=== PATIENT | male | born 1955 | race Hispanic/Latino ===

== ENCOUNTER 2016-08-12 20:29 | Inpatient (IN) | payer OTHER ==
--- NOTE | 2016-08-12 21:19 | C.PDOC ---
History Of Present Illness Patient is a 60 year old male who was brought into the ER by EMS for public intoxication. Patient was brought in restraints due to aggressive behavior and assaulting police and EMS. Patient has a stitching on the mid upper lip that was done 2 days ago at [facility] and ETOH on breath. There are no other signs of trauma or injury. Time Seen by Provider: 08/12/16 20:39 Chief Complaint (Nursing): Substance Abuse History Per: EMS History/Exam Limitations: intoxication Onset/Duration Of Symptoms: Hrs Current Symptoms Are (Timing): Still Present Past Medical History Reviewed: Historical Data, Nursing Documentation, Vital Signs Vital Signs: Last Vital Signs Temp 98.1 F 08/12/16 20:41 Pulse 94 H 08/13/16 00:26 Resp 14 08/13/16 00:26 BP 152/77 H 08/13/16 00:26 Pulse Ox 91 L 08/13/16 00:26 - Medical History PMH: HTN Family History: States: Unknown Family Hx - Social History Hx Alcohol Use: Yes Hx Substance Use: No Review Of Systems Review Of Systems: ROS cannot be obtained secondary to pt's inabilty to answer questions. (Intoxication) ENT: Positive for: Other (Stitching on mid upper lip.) Physical Exam - Physical Exam Appears: Non-toxic, Other (ETOH on breath.) Skin: Normal Color, Warm, Dry Head: Atraumatic, Normacephalic Oral Mucosa: Moist Lips: Other (Stitching on mid upper lip) Neck: Supple Cardiovascular: Rhythm Regular Respiratory: Normal Breath Sounds, No Rales, No Rhonchi, No Wheezing Gastrointestinal/Abdominal: Soft, No Tenderness, No Distention, No Guarding, No Rebound ED Course And Treatment O2 Sat by Pulse Oximetry: 100 (Room air) Pulse Ox Interpretation: Normal Progress Note: Atican IM and Geodon Inj were administered. restraints removed. impressive sleep apnea. OP bite block inserted by this MD to maintain proper OP airway: good O2 Sats Medical Decision Making Medical Decision Making: alcohol abuse Sleep apnea upper lip lac from 2 days ago- sutured @ [facility] ED OBSERVATION Date of observation admission: 08/12/16 Time of observation admission: 21:18 - Observation admission statement Patient is being placed in observation because:: Acute alcohol intoxication - Goals of Observation Goals of observation are:: Sobriety Disposition Doctor Will See Patient In The: Office Counseled Patient/Family Regarding: Studies Performed, Diagnosis - Disposition Disposition: HOME/ ROUTINE Disposition Time: 00:37 Condition: GOOD - Clinical Impression Clinical Impression: Alcohol abuse - Scribe Statement The provider has reviewed the documentation as recorded by the Scribsuzette Corbin All medical record entries made by the Mirzaibe were at my direction and personally dictated by me. I have reviewed the chart and agree that the record accurately reflects my personal performance of the history, physical exam, medical decision making, and the department course for this patient. I have also personally directed, reviewed, and agree with the discharge instructions and disposition. Physician Patient Turnover Patient Signed Over To: Solomon Kumar Handoff Comments: dispo in AM when sober
[2016-08-13 01:51] LABS: URINE BILIRUBIN NEGATIVE (NEGATIVE); URINE BLOOD 1+ (NEGATIVE); URINE COLOR Colorless (YELLOW); URINE GLUCOSE (UA) NORMAL (Normal); URINE KETONE NEGATIVE (NEGATIVE); URINE LEUKOCYTE ESTERASE NEG Leu/uL (Negative); URINE PROTEIN NEGATIVE (NEGATIVE); URINE UROBILINOGEN NORMAL mg/dL (0.2-1.0)
[2016-08-13 01:57] LABS: BASO # 0.1 K/uL (0.0-0.2); BASO % 0.5 % (0.0-2.0); EOS # 0.1 K/uL (0.0-0.7); EOS % 0.5 % (0.0-4.0); HEMATOCRIT 39.7 % (35.0-51.0); LYMPH # 3.9 K/uL (1.0-4.3); MEAN CELL VOLUME 95.1 fL (80.0-94.0); MEAN CORPUSCULAR HEMOGLOBIN 31.2 pg (27.0-31.0); MEAN CORPUSCULAR HGB CONC 32.8 g/dL (33.0-37.0); MEAN PLATELET VOLUME 8.1 fL (7.2-11.7); MONO # 0.7 K/uL (0.0-0.8); MONO % 4.5 % (0.0-10.0); RED CELL DISTRIBUTION WIDTH 13.2 % (11.5-14.5); WHITE BLOOD COUNT 15.4 K/uL (4.8-10.8)
[2016-08-13 02:09] LABS: CHLORIDE 103 mmol/L (98-107)
[2016-08-13 02:10] LABS: POTASSIUM 3.9 mmol/L (3.6-5.2); SODIUM 145 mmol/L (132-148)
[2016-08-13 02:12] LABS: AST/SGOT 33 U/L (17-59); BILIRUBIN,TOTAL 0.2 mg/dL (0.2-1.3); CARBON DIOXIDE 26 mmol/L (22-30); GFR AFRICAN-AMERICAN > 60
[2016-08-13 02:13] LABS: ALB/GLOB RATIO 1.1 (1.0-2.1); ALCOHOL SERUM 235 mg/dl (0-10); ALKALINE PHOSPHATASE 56 U/L (38-126); ALT/SGPT 35 U/L (21-72); BLOOD UREA NITROGEN 9 mg/dL (9-20); GLUCOSE,RANDOM 289 mg/dL (75-110); TOTAL PROTEIN 7.7 g/dL (6.3-8.3)
[2016-08-13] MEDS ORDERED: Naloxone 0.4 mg/ml Inj (Adult) ONE ×2 (05:11→05:21)
[2016-08-13] MEDS ORDERED: Sodium Chloride 0.9% 1,000 ML IV ONE (05:31)
[2016-08-13] MEDS ORDERED: Naloxone 0.4 mg/ml Inj (Adult) IVP ONE ×2 (05:32)
[2016-08-13] MEDS ORDERED: Sodium Chloride 0.9% 1,000 ML ONE (06:14)
[2016-08-13] MEDS ORDERED: Albuterol-Ipratrop 3 mg / 0.5 (3 ml) UD INH STA (06:41)
[2016-08-13] MEDS ORDERED: Albuterol-Ipratrop 3 mg / 0.5 (3 ml) UD ONE (06:42)
[2016-08-13 06:54] LABS: ABG ALLEN TEST POS; ARTERIAL BLOOD HGB O2 SAT 96.6 % (95.0-98.0); CARBOXYHEMOGLOBIN 1.6 % (0.5-1.5); DRAW SITE RB; HHB 0.6 % (0.0-5.0); METHEMOGLOBIN 1.2 % (0.0-3.0)
--- NOTE | 2016-08-13 07:47 | CT ---
PROCEDURE: CT HEAD WITHOUT CONTRAST. HISTORY: unresponsiveness COMPARISON: None available. TECHNIQUE: Axial computed tomography images were obtained through the head/brain without intravenous contrast. Radiation dose: Total exam DLP = 1996.86 mGy-cm. FINDINGS: HEMORRHAGE: No intracranial hemorrhage. BRAIN: No mass effect or edema. No atrophy or chronic microvascular ischemic changes. VENTRICLES: Unremarkable. No hydrocephalus. CALVARIUM: Unremarkable. PARANASAL SINUSES: Chronic left maxillary sinusitis. MASTOID AIR CELLS: Unremarkable as visualized. No inflammatory changes. OTHER FINDINGS: None. IMPRESSION: No intracranial mass, hemorrhage or evidence of acute infarct. Chronic left maxillary sinusitis.
[2016-08-13 08:16] LABS: CHLORIDE 100 mmol/L (98-107); SODIUM 147 mmol/L (132-148)
[2016-08-13 08:17] LABS: POTASSIUM 4.1 mmol/L (3.6-5.2)
[2016-08-13 08:18] LABS: GFR AFRICAN-AMERICAN > 60
[2016-08-13 08:19] LABS: ALB/GLOB RATIO 1.2 (1.0-2.1); ALKALINE PHOSPHATASE 64 U/L (38-126); ALT/SGPT 27 U/L (21-72); AST/SGOT 40 U/L (17-59); BILIRUBIN,TOTAL 0.2 mg/dL (0.2-1.3); BLOOD UREA NITROGEN 12 mg/dL (9-20); CALCIUM 8.3 mg/dl (8.6-10.4); CARBON DIOXIDE 26 mmol/L (22-30); GLUCOSE,RANDOM 72 mg/dL (75-110)
[2016-08-13 09:31] LABS: INR 1.1
[2016-08-13] MEDS ORDERED: MethylPREDNISolone 40 mg Vial IVP STA (09:32)
[2016-08-13] MEDS ORDERED: DiphenhydrAMINE 50 mg/ml Inj IVP STA (09:32)
[2016-08-13] MEDS ORDERED: Thiamine 100 mg/ml Inj IV STA (09:36)
[2016-08-13] MEDS ORDERED: Piperacillin/Tazobact 3.375 gm 100 ML IVPB ONE (09:37)
[2016-08-13] MEDS ORDERED: Dextrose 5%/0.9% NS 1,000 ML IV ONE (09:38)
[2016-08-13] MEDS: Piperacill/Tazo 3.375gm in Dex 50 ML IVPB SCH ×3 (09:39→21:23)
[2016-08-13] MEDS ORDERED: Thiamine 100 mg/ml Inj ONE (10:01)
[2016-08-13] MEDS: Dextrose 5%/0.9% NS 1,000 ML IV SCH ×3 (10:06→22:16)
[2016-08-13] MEDS ORDERED: DiphenhydrAMINE 50 mg/ml Inj ONE (10:15)
[2016-08-13] MEDS ORDERED: MethylPREDNISolone 40 mg Vial ONE (10:16)
--- NOTE | 2016-08-13 11:01 | RAD ---
PROCEDURE: CHEST RADIOGRAPH, 1 VIEW HISTORY: hypoxemia, alc. intoxication COMPARISON: None available. FINDINGS: LUNGS: Mild bibasilar atelectasis and or infiltrates. PLEURA: No pneumothorax or pleural fluid seen. CARDIOVASCULAR: Heart size is upper limits of normal/ borderline enlarged. OSSEOUS STRUCTURES: Mild multilevel degenerative spondylosis of the thoracic spine. VISUALIZED UPPER ABDOMEN: Normal. OTHER FINDINGS: None. IMPRESSION: Mild bibasilar atelectasis and or infiltrates.
[2016-08-13] MEDS ORDERED: Ibuprofen IV 400 MG in Dextrose 5% In Water 100 ML IVPB ONE (11:25)
--- NOTE | 2016-08-13 12:59 | CT ---
PROCEDURE: CT Chest with contrast (Pulmonary Angiogram) HISTORY: possible PE COMPARISON: None available. TECHNIQUE: Axial computed tomography images were obtained of the chest in the pulmonary arterial phase of enhancement. Coronal and sagittal reformatted images were created and reviewed. Intravenous contrast dose: 100 cubic centimeters Visipaque 320 Radiation dose: Total exam DLP = 574.86 MGy-cm. FINDINGS: PULMONARY ARTERIES: Unremarkable. No pulmonary embolism. AORTA: No acute findings. No thoracic aortic aneurysm. LUNGS: Consolidation right and left lower lobes. PLEURAL SPACES: No effusion or pneuomothorax. HEART: Unremarkable. No cardiomegaly. No significant pericardial effusion. LYMPH NODES: No lymphadenopathy. BONES, CHEST WALL: Unremarkable. No fracture or destructive lesion OTHER FINDINGS: Unremarkable. IMPRESSION: Significant consolidation right and left lower lobe consistent with airspace disease and likely representing pneumonia. No evidence of pulmonary embolism.
[2016-08-13 13:52] LABS: VENOUS BLOOD GAS BASE EXCESS -0.7 mmol/L (0.0-2.0); VENOUS BLOOD GAS PCO2 40 mmHg (40-60); VENOUS BLOOD PH 7.39 (7.32-7.43)
[2016-08-13] MEDS ORDERED: Multivitamin (MVI) 10 ML, Thiamine 100 MG, Folic Acid 1 MG in Sodium Chloride 0.9% 1,00... IV ONE (14:09)
[2016-08-13] MEDS: Albuterol-Ipratrop 3 mg / 0.5 (3 ml) UD INH SCH ×2 (16:00→20:03)
--- NOTE | 2016-08-13 16:15 | CP.PCM.CON ---
History of Present Illness - History of Present Illness History of Present Illness: Chief complaint: Altered mental status History present illness: 60-year-old male brought in by the ambulance last night, at the time patient was found to be severely alcoholic, and drowsiness, secondary to possibly alcoholic intoxication. Patient was observed in the emergency room, but over the course of last night and this morning patient become more somnolent. Initially patient was agitated, given Ativan as well as Geodon, but this morning patient become more lethargic. Patient also having respiratory distress. And he was given BiPAP and ICU evaluation was called. 10 am examined by me at the time , at the time patient was severely hypoxic and BiPAP with 100% FiO2. Patient is responding to deep stimuli. But responding to simple questions at the time. Labored breathing was noted in spite of the BiPAP. Past medical history: Alcoholism. Further information is not available Allergy: Unknown Personal history, suspected alcoholism, but further history not available, he also claims that he smokes Personal history and family history not available much Review of system: Patient is calm at this time, but the drowsy, on BiPAP and labored breathing noted. On examination: Vital signs reviewed Hypoxia noted, patient is on FiO2 of 100%. Chest bilateral diffuse rhonchi and wheezing noted regular heart sound nontender abdomen Chest x-ray showing evidence of basilar atelectasis But ABG reveals hypoxia. In opinion patient has a severe gradient, will get a CT scan of the chest Patient underwent a CAT scan of the chest with contrast showing evidence of possible lower lobe bilateral pneumonia Labs reviewed Elevated LEVEL noted Assessment and recommendation: 60-year-old male now admitted with alcoholism, and also severe bilateral community-acquired pneumonia. Aspiration pneumonia cannot be ruled out. Given the alcoholism patient is at high risk Streptococcus pneumonia. We'll start the patient on vancomycin and Zosyn. High FiO2. Overall prognosis is guarded and will follow the patient. Past Patient History - Infectious Disease Hx of Infectious Diseases: None - Past Social History Smoking Status: Never Smoked - CARDIAC Hx Hypertension: Yes - PULMONARY Hx Tuberculosis: No - NEUROLOGICAL Hx Seizures: No - HEMATOLOGICAL/ONCOLOGICAL Hx Human Immunodeficiency Virus (HIV): No - GENITOURINARY/GYNECOLOGICAL Hx Sexually Transmitted Disorders: No - PSYCHIATRIC Hx Substance Use: No - SURGICAL HISTORY Hx Surgeries: No - ANESTHESIA Hx Anesthesia: No Meds Allergies/Adverse Reactions: Allergies Allergy/AdvReac Type Severity Reaction Status Date / Time No Known Allergies Allergy Verified 08/12/16 20:37 - Medications Medications: Current Medications Albuterol/Ipratropium (Duoneb 3 Mg/0.5 Mg (3 Ml) Ud) 3 ml INH RQ6 [facility] Last Admin: 08/13/16 16:00 Dose: 3 ml Piperacillin Sod/Tazobactam Sod (Zosyn 3.375 Gm Iv Premix) 50 mls @ 100 mls/hr IVPB Q6H [facility] Last Admin: 08/13/16 09:39 Dose: 100 mls/hr Dextrose/Sodium Chloride (Dextrose 5%/0.9% Ns 1000 Ml) 1,000 mls @ 150 mls/hr IV .Q6H40M [facility] Last Admin: 08/13/16 10:06 Dose: 150 mls/hr Multivitamins/Vitamin C 10 ml/Thiamine HCl 100 mg/ Folic Acid 1 mg/ Sodium Chloride 1,011.2 mls @ 150 mls/hr IV .Q6H45M ONE Stop: 08/13/16 20:53 Vancomycin HCl 1,000 mg/ (Sodium Chloride) 250 mls @ 166.6 mls/hr IVPB Q12H [facility] Last Admin: 08/13/16 14:38 Dose: 166.6 mls/hr Pantoprazole Sodium (Protonix Inj) 40 mg IVP DAILY [facility] Results - Vital Signs Recent Vital Signs: Last Vital Signs Temp 100.5 F H 08/13/16 13:49 Pulse 87 08/13/16 14:32 Resp 16 08/13/16 14:32 BP 105/68 08/13/16 14:32 Pulse Ox 87 L 08/13/16 14:32 - Labs Result Diagrams: 08/13/16 01:44 08/13/16 07:59 Labs: Laboratory Results - last 24 hr 08/13/16 08/13/16 08/13/16 09:09 13:48 14:00 PT 11.8 INR 1.1 APTT 34 D-Dimer, Quantitative 608 H pO2 94 H VBG pH 7.39 VBG pCO2 40 VBG HCO3 24.4 VBG Total CO2 25.4 VBG O2 Sat (Calc) 99.6 H VBG Base Excess -0.7 L VBG Potassium 3.5 L Sodium 141.0 Chloride 114.0 H Glucose 200 H Lactate 1.2 POC Glucose (mg/dL) 90 Venous Blood Potassium 3.5 L
--- NOTE | 2016-08-13 18:14 | CP.PCM.HP ---
History of Present Illness - History of Present Illness History of Present Illness: pt came in by ambulace to ed with alc intoxication agitated was treated in er and no hx could be obtained was unable to answer any quesioms was found to have hypoxeamia and respiratory depesion and ams admited to icu Present on Admission - Present on Admission Any Indicators Present on Admission: No Review of Systems - Review of Systems Systems not reviewed;Unavailable: Acuity of Condition, Unstable Vital Signs, Intoxicated - Constitutional Constitutional: Lethargy - EENT Eyes: As Per HPI Ears: As Per HPI Nose/Mouth/Throat: As Per HPI - Cardiovascular Additional comments: short at fib - Respiratory Respiratory: Dyspnea - Gastrointestinal Gastrointestinal: As Per HPI - Genitourinary Genitourinary: As Per HPI - Reproductive: Male Reproductive:Male: As Per HPI - Musculoskeletal Musculoskeletal: As Per HPI - Integumentary Integumentary: As Per HPI - Neurological Neurological: As Per HPI - Psychiatric Psychiatric: As Per HPI - Endocrine Endocrine: As Per HPI - Hematologic/Lymphatic Hematologic: As Per HPI Past Patient History - Infectious Disease Hx of Infectious Diseases: None - Past Social History Smoking Status: Never Smoked - CARDIAC Hx Hypertension: Yes - PULMONARY Hx Tuberculosis: No - NEUROLOGICAL Hx Seizures: No - HEMATOLOGICAL/ONCOLOGICAL Hx Human Immunodeficiency Virus (HIV): No - MUSCULOSKELETAL/RHEUMATOLOGICAL Hx Falls: No - GENITOURINARY/GYNECOLOGICAL Hx Sexually Transmitted Disorders: No - PSYCHIATRIC Hx Substance Use: No - SURGICAL HISTORY Hx Surgeries: No - ANESTHESIA Hx Anesthesia: No Meds Allergies/Adverse Reactions: Allergies Allergy/AdvReac Type Severity Reaction Status Date / Time No Known Allergies Allergy Verified 08/12/16 20:37 Physical Exam - Constitutional Additional comments: lethargic sleepy - Head Exam Head Exam: ATRAUMATIC - Eye Exam Eye Exam: Conjunctival injection - Neck Exam Neck exam: Positive for: Normal Inspection - Respiratory Exam Respiratory Exam: Clear to Auscultation Bilateral - Cardiovascular Exam Cardiovascular Exam: Tachycardia - GI/Abdominal Exam GI & Abdominal Exam: Normal Bowel Sounds - Extremities Exam Extremities exam: Positive for: normal inspection - Psychiatric Exam Psychiatric exam: Agitated - Skin Skin Exam: Normal Color Results - Vital Signs Recent Vital Signs: Last Vital Signs Temp 98.1 F 08/13/16 16:00 Pulse 84 08/13/16 17:00 Resp 19 08/13/16 17:00 BP 92/54 L 08/13/16 17:00 Pulse Ox 99 08/13/16 17:00 - Labs Result Diagrams: 08/13/16 01:44 08/13/16 07:59 Labs: Laboratory Results - last 24 hr 08/13/16 08/13/16 08/13/16 09:09 13:48 14:00 PT 11.8 INR 1.1 APTT 34 D-Dimer, Quantitative 608 H pO2 94 H VBG pH 7.39 VBG pCO2 40 VBG HCO3 24.4 VBG Total CO2 25.4 VBG O2 Sat (Calc) 99.6 H VBG Base Excess -0.7 L VBG Potassium 3.5 L Sodium 141.0 Chloride 114.0 H Glucose 200 H Lactate 1.2 POC Glucose (mg/dL) 90 Venous Blood Potassium 3.5 L Assessment & Plan - Assessment and Plan (Free Text) Assessment: alc intoxication ams resp depresion Plan: cont as per icu - Date & Time Date: 08/13/16 Time: 18:18
[2016-08-14] MEDS: Albuterol-Ipratrop 3 mg / 0.5 (3 ml) UD INH SCH ×4 (01:04→19:26)
[2016-08-14] MEDS: Dextrose 5%/0.9% NS 1,000 ML IV SCH ×4 (01:50→13:15)
[2016-08-14] MEDS: Piperacill/Tazo 3.375gm in Dex 50 ML IVPB SCH ×4 (03:08→21:02)
[2016-08-14 05:56] LABS: ABG ALLEN TEST POS; ARTERIAL BLOOD HGB O2 SAT 96.5 % (95.0-98.0); CARBOXYHEMOGLOBIN 1.7 % (0.5-1.5); DRAW SITE RR; HHB 0.8 % (0.0-5.0)
[2016-08-14 06:03] LABS: BASO % 0.2 % (0.0-2.0); HEMATOCRIT 33.4 % (35.0-51.0); LYMPH # 1.1 K/uL (1.0-4.3); LYMPH % 11.4 % (20.0-40.0); MEAN CELL VOLUME 93.6 fL (80.0-94.0); MEAN CORPUSCULAR HEMOGLOBIN 30.7 pg (27.0-31.0); MEAN CORPUSCULAR HGB CONC 32.8 g/dL (33.0-37.0); MEAN PLATELET VOLUME 8.5 fL (7.2-11.7); MONO # 0.5 K/uL (0.0-0.8); MONO % 5.3 % (0.0-10.0); WHITE BLOOD COUNT 9.6 K/uL (4.8-10.8)
[2016-08-14 06:12] LABS: CHLORIDE 101 mmol/L (98-107); POTASSIUM 3.6 mmol/L (3.6-5.2); SODIUM 139 mmol/L (132-148)
[2016-08-14 06:14] LABS: ALB/GLOB RATIO 1.1 (1.0-2.1); ALKALINE PHOSPHATASE 39 U/L (38-126); ALT/SGPT 26 U/L (21-72); AST/SGOT 33 U/L (17-59); BILIRUBIN,TOTAL 0.9 mg/dL (0.2-1.3); BLOOD UREA NITROGEN 13 mg/dL (9-20); CARBON DIOXIDE 27 mmol/L (22-30); GFR AFRICAN-AMERICAN > 60; TOTAL PROTEIN 5.9 g/dL (6.3-8.3)
[2016-08-14 06:15] LABS: CALCIUM 8.2 mg/dl (8.6-10.4); GLUCOSE,RANDOM 108 mg/dL (75-110); MAGNESIUM 1.4 mg/dL (1.6-2.3); PHOSPHOROUS 2.4 mg/dL (2.5-4.5)
--- NOTE | 2016-08-14 09:00 | CP.CCUPN ---
<ShajiKristenshaunaalex - Last Filed: 08/14/16 12:45> CCU Subjective - Physician Review Subjective (Free Text): 08/14/16 12:31 Patient seen and examined at bedside. No acute distress. Per nursing, no problems overnight. Denies pain, breathing issues or signs of alcohol withdrawal. Patient medically stable for transfer to medical floor. CCU Objective - Vital Signs / Intake & Output Vital Signs (Last 4 hours): Vital Signs Temp Pulse Resp BP Pulse Ox 08/14/16 07:03 94/54 L 08/14/16 07:02 72 16 97 08/14/16 07:00 70 18 96 08/14/16 06:04 76 13 114/54 L 96 08/14/16 06:01 16 08/14/16 06:00 98.5 F 84 12 96 08/14/16 05:42 77 21 108/60 08/14/16 05:06 70 15 Intake and Output (Last 8hrs): Intake & Output 08/13/16 08/14/16 08/14/16 22:59 06:59 14:59 Intake Total 1250 1400 100 Output Total 0 700 0 Balance 1250 700 100 Weight 201 lb 198 lb Intake: Intake, IV Amount 1150 1200 100 Right Wrist 1050 1200 100 Right Forearm 100 Oral 100 200 Output: Urine 0 700 0 Urine, Voided 0 700 0 - Physical Exam Physical Exam Limitations: Negative for: Altered Mental Status Head: Negative for: Atraumatic, Normocephalic Pupils: Positive for: PERRL Extroacular Muscles: Positive for: EOMI Conjunctiva: Positive for: Normal Mouth: Positive for: Moist Mucous Membranes Neck: Positive for: Normal Range of Motion Respiratory/Chest: Positive for: Good Air Exchange. Negative for: Wheezes Cardiovascular: Positive for: Normal S1, S2 Abdomen: Negative for: Tenderness Upper Extremity: Positive for: Normal Inspection Neurological: Positive for: CN II-XII Intact, Speech Normal Skin: Positive for: Warm, Dry, Normal Color Psychiatric: Positive for: Alert, Oriented x 3 - Medications Active Medications: Active Medications Generic Name Dose Route Start Last Admin Trade Name Freq PRN Reason Stop Dose Admin Albuterol/Ipratropium 3 ml 08/13/16 14:00 08/14/16 08:57 Duoneb 3 Mg/0.5 Mg (3 Ml) Ud INH 3 ml RQ6 KRISTY Administration Piperacillin Sod/Tazobactam Sod 50 mls @ 100 mls/hr 08/13/16 09:00 08/14/16 08: 18 Zosyn 3.375 Gm Iv Premix IVPB 100 mls/hr Q6H KRISTY Administration Dextrose/Sodium Chloride 1,000 mls @ 150 mls/hr 08/13/16 10:15 08/14/16 07:50 Dextrose 5%/0.9% Ns 1000 Ml IV 150 mls/hr .Q6H40M KRISTY Administration Vancomycin HCl 1,000 mg/ 250 mls @ 166.6 mls/hr 08/13/16 14:30 08/14/16 01:55 Sodium Chloride IVPB 166.6 mls/hr Q12H KRISTY Administration Pantoprazole Sodium 40 mg 08/14/16 10:00 Protonix Inj IVP DAILY KRISTY - Patient Studies Lab Studies: Lab Studies 08/14/16 08/14/16 08/13/16 Range/Units 05:53 05:12 14:00 WBC 9.6 (4.8-10.8) K/uL RBC 3.57 L (4.40-5.90) Mil/uL Hgb 11.0 L D (12.0-18.0) g/dL Hct 33.4 L (35.0-51.0) % MCV 93.6 (80.0-94.0) fL MCH 30.7 (27.0-31.0) pg MCHC 32.8 L (33.0-37.0) g/dL RDW 13.0 (11.5-14.5) % Plt Count 232 D (130-400) K/uL MPV 8.5 (7.2-11.7) fL Neut % (Auto) 83.1 H (50.0-75.0) % Lymph % (Auto) 11.4 L (20.0-40.0) % Cooper % (Auto) 5.3 (0.0-10.0) % Eos % (Auto) 0.0 (0.0-4.0) % Baso % (Auto) 0.2 (0.0-2.0) % Neut # 8.0 H (1.8-7.0) K/uL Lymph # 1.1 (1.0-4.3) K/uL Cooper # 0.5 (0.0-0.8) K/uL Eos # 0.0 (0.0-0.7) K/uL Baso # 0.0 (0.0-0.2) K/uL PT (9.7-12.2) SECONDS INR APTT (21-34) SECONDS D-Dimer, Quantitative (0-243) ng/mlDDU Puncture Site Rr pCO2 40 (35-45) mm/Hg pO2 98 (80-100) mm/Hg HCO3 25.5 (21-28) mmol/L ABG pH 7.41 (7.35-7.45) ABG Total CO2 26.6 (22-28) mmol/L ABG O2 Saturation 99.2 H (95-98) % ABG Base Excess 0.7 (-2.0-3.0) mmol/L ABG Hemoglobin 11.0 L (11.7-17.4) g/dL ABG Carboxyhemoglobin 1.7 H (0.5-1.5) % POC ABG HHb (Measured) 0.8 (0.0-5.0) % ABG Methemoglobin 1.0 (0.0-3.0) % Cesar Test Pos VBG pH (7.32-7.43) VBG pCO2 (40-60) mmHg VBG HCO3 mmol/L VBG Total CO2 (22-28) mmol/L VBG O2 Sat (Calc) (40-65) % VBG Base Excess (0.0-2.0) mmol/L VBG Potassium (3.6-5.2) mmol/L A-a O2 Difference 280.0 mm/Hg Respiratory Index 2.9 Hgb O2 Saturation 96.5 (95.0-98.0) % Glucose (75-110) mg/dl Lactate (0.7-2.1) mmol/L Liter Flow 30.0 FiO2 60.0 % Sodium 139 (132-148) mmol/L Potassium 3.6 (3.6-5.2) mmol/L Chloride 101 (98-107) mmol/L Carbon Dioxide 27 (22-30) mmol/L Anion Gap 15 (10-20) BUN 13 (9-20) mg/dL Creatinine 0.9 (0.8-1.5) MG/DL Est GFR ( Amer) > 60 Est GFR (Non-Af Amer) > 60 POC Glucose (mg/dL) 90 (65-110) mg/dL Random Glucose 108 (75-110) mg/dL Calcium 8.2 L (8.6-10.4) mg/dl Phosphorus 2.4 L (2.5-4.5) mg/dL Magnesium 1.4 L (1.6-2.3) mg/dL Total Bilirubin 0.9 (0.2-1.3) mg/dL AST 33 (17-59) U/L ALT 26 (21-72) U/L Alkaline Phosphatase 39 (38-126) U/L Total Protein 5.9 L (6.3-8.3) g/dL Albumin 3.0 L D (3.5-5.0) g/dL Globulin 2.8 (2.2-3.9) gm/dL Albumin/Globulin Ratio 1.1 (1.0-2.1) Venous Blood Potassium (3.6-5.2) mmol/L 08/13/16 08/13/16 Range/Units 13:48 09:09 WBC (4.8-10.8) K/uL RBC (4.40-5.90) Mil/uL Hgb (12.0-18.0) g/dL Hct (35.0-51.0) % MCV (80.0-94.0) fL MCH (27.0-31.0) pg MCHC (33.0-37.0) g/dL RDW (11.5-14.5) % Plt Count (130-400) K/uL MPV (7.2-11.7) fL Neut % (Auto) (50.0-75.0) % Lymph % (Auto) (20.0-40.0) % Cooper % (Auto) (0.0-10.0) % Eos % (Auto) (0.0-4.0) % Baso % (Auto) (0.0-2.0) % Neut # (1.8-7.0) K/uL Lymph # (1.0-4.3) K/uL Cooper # (0.0-0.8) K/uL Eos # (0.0-0.7) K/uL Baso # (0.0-0.2) K/uL PT 11.8 (9.7-12.2) SECONDS INR 1.1 APTT 34 (21-34) SECONDS D-Dimer, Quantitative 608 H (0-243) ng/mlDDU Puncture Site pCO2 (35-45) mm/Hg pO2 94 H (80-100) mm/Hg HCO3 (21-28) mmol/L ABG pH (7.35-7.45) ABG Total CO2 (22-28) mmol/L ABG O2 Saturation (95-98) % ABG Base Excess (-2.0-3.0) mmol/L ABG Hemoglobin (11.7-17.4) g/dL ABG Carboxyhemoglobin (0.5-1.5) % POC ABG HHb (Measured) (0.0-5.0) % ABG Methemoglobin (0.0-3.0) % Cesar Test VBG pH 7.39 (7.32-7.43) VBG pCO2 40 (40-60) mmHg VBG HCO3 24.4 mmol/L VBG Total CO2 25.4 (22-28) mmol/L VBG O2 Sat (Calc) 99.6 H (40-65) % VBG Base Excess -0.7 L (0.0-2.0) mmol/L VBG Potassium 3.5 L (3.6-5.2) mmol/L A-a O2 Difference mm/Hg Respiratory Index Hgb O2 Saturation (95.0-98.0) % Glucose 200 H (75-110) mg/dl Lactate 1.2 (0.7-2.1) mmol/L Liter Flow FiO2 % Sodium 141.0 (132-148) mmol/L Potassium (3.6-5.2) mmol/L Chloride 114.0 H (98-107) mmol/L Carbon Dioxide (22-30) mmol/L Anion Gap (10-20) BUN (9-20) mg/dL Creatinine (0.8-1.5) MG/DL Est GFR ( Amer) Est GFR (Non-Af Amer) POC Glucose (mg/dL) (65-110) mg/dL Random Glucose (75-110) mg/dL Calcium (8.6-10.4) mg/dl Phosphorus (2.5-4.5) mg/dL Magnesium (1.6-2.3) mg/dL Total Bilirubin (0.2-1.3) mg/dL AST (17-59) U/L ALT (21-72) U/L Alkaline Phosphatase (38-126) U/L Total Protein (6.3-8.3) g/dL Albumin (3.5-5.0) g/dL Globulin (2.2-3.9) gm/dL Albumin/Globulin Ratio (1.0-2.1) Venous Blood Potassium 3.5 L (3.6-5.2) mmol/L Laboratory Results - last 24 hr 08/13/16 08/13/16 08/13/16 09:09 13:48 14:00 WBC RBC Hgb Hct MCV MCH MCHC RDW Plt Count MPV Neut % (Auto) Lymph % (Auto) Cooper % (Auto) Eos % (Auto) Baso % (Auto) Neut # Lymph # Cooper # Eos # Baso # PT 11.8 INR 1.1 APTT 34 D-Dimer, Quantitative 608 H Puncture Site pCO2 pO2 94 H HCO3 ABG pH ABG Total CO2 ABG O2 Saturation ABG Base Excess ABG Hemoglobin ABG Carboxyhemoglobin POC ABG HHb (Measured) ABG Methemoglobin Cesar Test VBG pH 7.39 VBG pCO2 40 VBG HCO3 24.4 VBG Total CO2 25.4 VBG O2 Sat (Calc) 99.6 H VBG Base Excess -0.7 L VBG Potassium 3.5 L A-a O2 Difference Respiratory Index Hgb O2 Saturation Sodium 141.0 Chloride 114.0 H Glucose 200 H Lactate 1.2 Liter Flow FiO2 Potassium Carbon Dioxide Anion Gap BUN Creatinine Est GFR ( Amer) Est GFR (Non-Af Amer) POC Glucose (mg/dL) 90 Random Glucose Calcium Phosphorus Magnesium Total Bilirubin AST ALT Alkaline Phosphatase Total Protein Albumin Globulin Albumin/Globulin Ratio Venous Blood Potassium 3.5 L 08/14/16 08/14/16 05:12 05:53 WBC 9.6 RBC 3.57 L Hgb 11.0 L D Hct 33.4 L MCV 93.6 MCH 30.7 MCHC 32.8 L RDW 13.0 Plt Count 232 D MPV 8.5 Neut % (Auto) 83.1 H Lymph % (Auto) 11.4 L Cooper % (Auto) 5.3 Eos % (Auto) 0.0 Baso % (Auto) 0.2 Neut # 8.0 H Lymph # 1.1 Cooper # 0.5 Eos # 0.0 Baso # 0.0 PT INR APTT D-Dimer, Quantitative Puncture Site Rr pCO2 40 pO2 98 HCO3 25.5 ABG pH 7.41 ABG Total CO2 26.6 ABG O2 Saturation 99.2 H ABG Base Excess 0.7 ABG Hemoglobin 11.0 L ABG Carboxyhemoglobin 1.7 H POC ABG HHb (Measured) 0.8 ABG Methemoglobin 1.0 Cesar Test Pos VBG pH VBG pCO2 VBG HCO3 VBG Total CO2 VBG O2 Sat (Calc) VBG Base Excess VBG Potassium A-a O2 Difference 280.0 Respiratory Index 2.9 Hgb O2 Saturation 96.5 Sodium 139 Chloride 101 Glucose Lactate Liter Flow 30.0 FiO2 60.0 Potassium 3.6 Carbon Dioxide 27 Anion Gap 15 BUN 13 Creatinine 0.9 Est GFR ( Amer) > 60 Est GFR (Non-Af Amer) > 60 POC Glucose (mg/dL) Random Glucose 108 Calcium 8.2 L Phosphorus 2.4 L Magnesium 1.4 L Total Bilirubin 0.9 AST 33 ALT 26 Alkaline Phosphatase 39 Total Protein 5.9 L Albumin 3.0 L D Globulin 2.8 Albumin/Globulin Ratio 1.1 Venous Blood Potassium Fingerstick Blood Sugar Results: 90 Critical Care Progress Note - Nutrition Nutrition: Nutrition Category Date Time Status Liquid Diet [DIET] Diets 08/13/16 Dinner Active Assessment/Plan - Assessment and Plan (Free Text) Assessment: Patient is a 60M with PMHx of ETOH abuse presents with public intoxication. Pt was evaluated in the ED on 08/12/16 and kept for observation. Patient was admitted to the ICU on 08/13/16 with respiratory depression, altered mental status and alcohol intoxication. Plan: Neuro: AAOx3 No gross neuro deficits 08/13/16 CT head: No intracranial mass, hemorrhage or evidence of acute infarct. Chronic left maxillary sinusitis. UDS negative ETOH 235 neuro checks Banana bag ordered UDS- positive for alcohol (235) CV: Hx of HTN Hemodynamically stable 08/13/16 EKG: NSR, 88bpm, ST elevation in leads II, V4, V5, and V6. Possible pericarditis. Non-specific T changes. No reciprocal changes. 08/13/16 CXR: Heart size is upper limits of normal/ borderline enlarged. CK-MB 14.2, Troponin I 0.1000 Monitor Aspirin 81mg PO daily Pulm: 02 sat=97% on nc ABG (08/14/16): pCO2 40, pO2 98, HCO3 25.5, pH 7.41 ABG (08/13/16): pCO2 49, pO2 120, HCO3 19.8, pH 7.24 Likely pneumonia - on Zosyn and Vanco 08/13/16 CXR: Mild bibasilar atelectasis and/or infiltrates. 08/13/16 CT angio: Significant consolidation right and left lower lobe consistent with airspace disease and likely representing pneumonia.No evidence of pulmonary embolism. Duoneb 3mg/0.5mg Heme: Leukocytosis resolved (WBC 9.6) PT 11.8, INR 1.1, APTT 24 (08/13/16) D-dimer 608 (08/13/16) Hypomagnesemia - repleated Endo: Maintain euglycemia Accuchecks GI: Protonix 40mg IVP daily Tolerating diet : BUN/Cr: 13/0.9 IVF: d5NS 150mls/hr IV, NS 100mls/hr IV Hypomagnesemia- repleted ID: currently afebrile blood culture - pending Leukocytosis resolved (WBC 9.6) Empiric coverage with Zosyn and Vancomycin Psych: ETOH abuse DAPHNEY CIWA Thiamine 100mg monitor for signs of withdrawal Prophylaxis: SCDs Protonix 40mg IVP daily for GI ppx PT/OT evaluation and treatment when clinically stable Disp- Clinically stable for transfer to medical floor <Allan Partida - Last Filed: 08/14/16 18:15> CCU Objective - Vital Signs / Intake & Output Vital Signs (Last 4 hours): Vital Signs Temp Pulse Resp BP Pulse Ox 08/14/16 17:03 92 H 30 H 157/80 H 93 L 08/14/16 16:02 155/86 H 08/14/16 16:00 99.8 F H 92 H 23 93 L 08/14/16 15:27 81 22 94 L 08/14/16 15:02 82 18 145/88 92 L 08/14/16 15:00 87 23 92 L 08/14/16 14:17 90 21 94 L Intake and Output (Last 8hrs): Intake & Output 08/14/16 08/14/16 08/14/16 06:59 14:59 22:59 Intake Total 1400 1720.0 885.0 Output Total 700 1125 1050 Balance 700 595.0 -165.0 Weight 198 lb Intake: Intake, IV Amount 1200 1320.0 785.0 Right Wrist 1200 1150 Right Forearm 170.0 Right Hand 450 Left Hand 85.0 Right Hand side port 250 Oral 200 400 100 Output: Urine 700 1125 1050 Urine, Voided 700 1125 1050 Other: # Voids Urine, Voided 0 1 # Bowel Movements 0 0 - Medications Active Medications: Active Medications Generic Name Dose Route Start Last Admin Trade Name Freq PRN Reason Stop Dose Admin Albuterol/Ipratropium 3 ml 08/13/16 14:00 08/14/16 13:17 Duoneb 3 Mg/0.5 Mg (3 Ml) Ud INH 3 ml RQ6 KRISTY Administration Heparin Sodium (Porcine) 5,000 units 08/14/16 14:30 08/14/16 14:48 Heparin SC 5,000 units Q12H KRISTY Administration Piperacillin Sod/Tazobactam Sod 50 mls @ 100 mls/hr 08/13/16 09:00 08/14/16 14: 49 Zosyn 3.375 Gm Iv Premix IVPB 100 mls/hr Q6H KRISTY Administration Vancomycin HCl 1,000 mg/ 250 mls @ 166.6 mls/hr 08/13/16 14:30 08/14/16 14:49 Sodium Chloride IVPB 166.6 mls/hr Q12H KRISTY Administration Pantoprazole Sodium 40 mg 08/14/16 10:00 08/14/16 10:17 Protonix Inj IVP 40 mg DAILY KRISTY Administration - Patient Studies Lab Studies: Lab Studies 08/14/16 08/14/16 Range/Units 05:53 05:12 WBC 9.6 (4.8-10.8) K/uL RBC 3.57 L (4.40-5.90) Mil/uL Hgb 11.0 L D (12.0-18.0) g/dL Hct 33.4 L (35.0-51.0) % MCV 93.6 (80.0-94.0) fL MCH 30.7 (27.0-31.0) pg MCHC 32.8 L (33.0-37.0) g/dL RDW 13.0 (11.5-14.5) % Plt Count 232 D (130-400) K/uL MPV 8.5 (7.2-11.7) fL Neut % (Auto) 83.1 H (50.0-75.0) % Lymph % (Auto) 11.4 L (20.0-40.0) % Cooper % (Auto) 5.3 (0.0-10.0) % Eos % (Auto) 0.0 (0.0-4.0) % Baso % (Auto) 0.2 (0.0-2.0) % Neut # 8.0 H (1.8-7.0) K/uL Lymph # 1.1 (1.0-4.3) K/uL Cooper # 0.5 (0.0-0.8) K/uL Eos # 0.0 (0.0-0.7) K/uL Baso # 0.0 (0.0-0.2) K/uL Puncture Site Rr pCO2 40 (35-45) mm/Hg pO2 98 (80-100) mm/Hg HCO3 25.5 (21-28) mmol/L ABG pH 7.41 (7.35-7.45) ABG Total CO2 26.6 (22-28) mmol/L ABG O2 Saturation 99.2 H (95-98) % ABG Base Excess 0.7 (-2.0-3.0) mmol/L ABG Hemoglobin 11.0 L (11.7-17.4) g/dL ABG Carboxyhemoglobin 1.7 H (0.5-1.5) % POC ABG HHb (Measured) 0.8 (0.0-5.0) % ABG Methemoglobin 1.0 (0.0-3.0) % Cesar Test Pos A-a O2 Difference 280.0 mm/Hg Respiratory Index 2.9 Hgb O2 Saturation 96.5 (95.0-98.0) % Liter Flow 30.0 FiO2 60.0 % Sodium 139 (132-148) mmol/L Potassium 3.6 (3.6-5.2) mmol/L Chloride 101 (98-107) mmol/L Carbon Dioxide 27 (22-30) mmol/L Anion Gap 15 (10-20) BUN 13 (9-20) mg/dL Creatinine 0.9 (0.8-1.5) MG/DL Est GFR ( Amer) > 60 Est GFR (Non-Af Amer) > 60 Random Glucose 108 (75-110) mg/dL Calcium 8.2 L (8.6-10.4) mg/dl Phosphorus 2.4 L (2.5-4.5) mg/dL Magnesium 1.4 L (1.6-2.3) mg/dL Total Bilirubin 0.9 (0.2-1.3) mg/dL AST 33 (17-59) U/L ALT 26 (21-72) U/L Alkaline Phosphatase 39 (38-126) U/L Total Protein 5.9 L (6.3-8.3) g/dL Albumin 3.0 L D (3.5-5.0) g/dL Globulin 2.8 (2.2-3.9) gm/dL Albumin/Globulin Ratio 1.1 (1.0-2.1) Laboratory Results - last 24 hr 08/14/16 08/14/16 05:12 05:53 WBC 9.6 RBC 3.57 L Hgb 11.0 L D Hct 33.4 L MCV 93.6 MCH 30.7 MCHC 32.8 L RDW 13.0 Plt Count 232 D MPV 8.5 Neut % (Auto) 83.1 H Lymph % (Auto) 11.4 L Cooper % (Auto) 5.3 Eos % (Auto) 0.0 Baso % (Auto) 0.2 Neut # 8.0 H Lymph # 1.1 Cooper # 0.5 Eos # 0.0 Baso # 0.0 Puncture Site Rr pCO2 40 pO2 98 HCO3 25.5 ABG pH 7.41 ABG Total CO2 26.6 ABG O2 Saturation 99.2 H ABG Base Excess 0.7 ABG Hemoglobin 11.0 L ABG Carboxyhemoglobin 1.7 H POC ABG HHb (Measured) 0.8 ABG Methemoglobin 1.0 Cesar Test Pos A-a O2 Difference 280.0 Respiratory Index 2.9 Hgb O2 Saturation 96.5 Liter Flow 30.0 FiO2 60.0 Sodium 139 Potassium 3.6 Chloride 101 Carbon Dioxide 27 Anion Gap 15 BUN 13 Creatinine 0.9 Est GFR ( Amer) > 60 Est GFR (Non-Af Amer) > 60 Random Glucose 108 Calcium 8.2 L Phosphorus 2.4 L Magnesium 1.4 L Total Bilirubin 0.9 AST 33 ALT 26 Alkaline Phosphatase 39 Total Protein 5.9 L Albumin 3.0 L D Globulin 2.8 Albumin/Globulin Ratio 1.1 Critical Care Progress Note - Nutrition Nutrition: Nutrition Category Date Time Status Regular Diet [DIET] Diets 08/14/16 Breakfast Active Attending/Attestation - Attestation I have personally seen and examined this patient.: Yes I have fully participated in the care of the patient.: Yes I have reviewed all pertinent clinical information: Yes Notes (Text): 08/14/16 18:14 Patient seen and examined in the intensive care unit. Patient is a 60M with PMHx of ETOH abuse presents with public intoxication. Pt was evaluated in the ED on 08/12/16 and kept for observation. Patient was admitted to the ICU on 08/13/16 with respiratory depression, altered mental status and alcohol intoxication Condition much improved No respiratory distress responsive Transfer to floor
[2016-08-14] MEDS ORDERED: Potassium Phosphate 15 MMOLE in Sodium Chloride 0.9% 250 ML IVPB ONE (09:02)
[2016-08-14] MEDS ORDERED: Multivitamin (MVI) 10 ML, Thiamine 100 MG, Folic Acid 1 MG in Sodium Chloride 0.9% 1,00... IV ONE (09:56)
--- NOTE | 2016-08-14 10:58 | CP.PCM.PN ---
Subjective - Date & Time of Evaluation Date of Evaluation: 08/14/16 Time of Evaluation: 10:55 - Subjective Subjective: pt seen and examined today awake comfortable answering quesions not in distress on nasal oxygen Objective - Vital Signs/Intake and Output Vital Signs (last 24 hours): Temp Pulse Resp BP Pulse Ox 98.2 F 78 19 113/68 98 08/14/16 08:00 08/14/16 09:03 08/14/16 09:03 08/14/16 09:03 08/14/16 09:03 Intake and Output: 08/14/16 08/14/16 06:59 18:59 Intake Total 2150 625 Output Total 700 200 Balance 1450 425 - Medications Medications: Current Medications Albuterol/Ipratropium (Duoneb 3 Mg/0.5 Mg (3 Ml) Ud) 3 ml INH RQ6 [facility] Last Admin: 08/14/16 08:57 Dose: 3 ml Piperacillin Sod/Tazobactam Sod (Zosyn 3.375 Gm Iv Premix) 50 mls @ 100 mls/hr IVPB Q6H [facility] Last Admin: 08/14/16 08:18 Dose: 100 mls/hr Dextrose/Sodium Chloride (Dextrose 5%/0.9% Ns 1000 Ml) 1,000 mls @ 150 mls/hr IV .Q6H40M [facility] Last Admin: 08/14/16 07:50 Dose: 150 mls/hr Vancomycin HCl 1,000 mg/ (Sodium Chloride) 250 mls @ 166.6 mls/hr IVPB Q12H [facility] Last Admin: 08/14/16 01:55 Dose: 166.6 mls/hr Potassium Phosphate 15 mmole/ (Sodium Chloride) 255 mls @ 42.5 mls/hr IVPB ONCE ONE Stop: 08/14/16 15:01 Last Admin: 08/14/16 10:16 Dose: 42.5 mls/hr Multivitamins/Vitamin C 10 ml/Thiamine HCl 100 mg/ Folic Acid 1 mg/ Sodium Chloride 1,011.2 mls @ 150 mls/hr IV .Q6H45M ONE Stop: 08/14/16 16:40 Last Admin: 08/14/16 10:16 Dose: 150 mls/hr Pantoprazole Sodium (Protonix Inj) 40 mg IVP DAILY [facility] Last Admin: 08/14/16 10:17 Dose: 40 mg - Labs Labs: 08/14/16 05:53 08/14/16 05:53 PT 11.8 SECONDS (9.7-12.2) 08/13/16 09:09 INR 1.1 08/13/16 09:09 APTT 34 SECONDS (21-34) 08/13/16 09:09 - Constitutional Appears: No Acute Distress - Head Exam Head Exam: NORMAL INSPECTION - Eye Exam Eye Exam: Normal appearance Pupil Exam: NORMAL ACCOMODATION - Neck Exam Neck Exam: Normal Inspection - Respiratory Exam Respiratory Exam: NORMAL BREATHING PATTERN - Cardiovascular Exam Cardiovascular Exam: REGULAR RHYTHM - GI/Abdominal Exam GI & Abdominal Exam: Normal Bowel Sounds - Rectal Exam Rectal Exam: NORMAL INSPECTION - Exam Exam: NORMAL INSPECTION External exam: NORMAL EXTERNAL EXAM - Extremities Exam Extremities Exam: Full ROM - Back Exam Back Exam: NORMAL INSPECTION - Psychiatric Exam Psychiatric exam: Normal Affect - Skin Skin Exam: Normal Color Assessment and Plan - Assessment and Plan (Free Text) Assessment: s/p alc intoxication respiratory supresion Plan: as per icu orders prably oob and ambulate
--- NOTE | 2016-08-14 13:01 | RAD ---
HISTORY: hypoxemic on admission COMPARISON: 08/13/2016 FINDINGS: LUNGS: There are low lung volumes. There is confluent airspace disease in the right mid lung and both lower lobes. PLEURA: No significant pleural effusion identified, no pneumothorax apparent. CARDIOVASCULAR: Normal. OSSEOUS STRUCTURES: No significant abnormalities. VISUALIZED UPPER ABDOMEN: Normal. OTHER FINDINGS: None. IMPRESSION: Suspect multifocal pneumonia, worse in the right lung. Follow-up is advised.
--- NOTE | 2016-08-14 20:33 | CARD ---
APPROVED REPORT EKG Measurement Heart [id number] <Conclusion> Normal sinus rhythm Early repolarization. Nonspecific T wave abnormality Abnormal ECG
--- NOTE | 2016-08-14 20:34 | CARD ---
APPROVED REPORT EKG Measurement Heart [id number] <Conclusion> Atrial fibrillation with rapid ventricular response Abnormal ECG
[2016-08-15] MEDS: Albuterol-Ipratrop 3 mg / 0.5 (3 ml) UD INH SCH ×3 (01:11→14:38)
[2016-08-15] MEDS: Piperacill/Tazo 3.375gm in Dex 50 ML IVPB SCH ×3 (02:51→20:55)
[2016-08-15 06:49] LABS: CALCIUM 8.2 mg/dl (8.6-10.4); PHOSPHOROUS 3.1 mg/dL (2.5-4.5)
[2016-08-15 06:50] LABS: ALB/GLOB RATIO 1.1 (1.0-2.1); ALKALINE PHOSPHATASE 84 U/L (38-126); ALT/SGPT 29 U/L (21-72); AST/SGOT 40 U/L (17-59); BILIRUBIN,TOTAL 1.7 mg/dL (0.2-1.3); BLOOD UREA NITROGEN 10 mg/dL (9-20); CARBON DIOXIDE 26 mmol/L (22-30); CHLORIDE 101 mmol/L (98-107); GFR AFRICAN-AMERICAN > 60; GLUCOSE,RANDOM 90 mg/dL (75-110); POTASSIUM 3.7 mmol/L (3.6-5.2); TOTAL PROTEIN 6.5 g/dL (6.3-8.3)
[2016-08-15 06:52] LABS: BASO % 0.3 % (0.0-2.0); EOS % 0.2 % (0.0-4.0); LYMPH # 1.1 K/uL (1.0-4.3); LYMPH % 11.4 % (20.0-40.0); MEAN CORPUSCULAR HEMOGLOBIN 31.3 pg (27.0-31.0); MEAN CORPUSCULAR HGB CONC 33.7 g/dL (33.0-37.0); MEAN PLATELET VOLUME 8.4 fL (7.2-11.7); MONO # 0.5 K/uL (0.0-0.8); MONO % 4.6 % (0.0-10.0); RED CELL DISTRIBUTION WIDTH 13.3 % (11.5-14.5)
[2016-08-15 07:03] LABS: SODIUM 138 mmol/L (132-148)
[2016-08-15] MEDS: Vancomycin 1 gm/NS 200 ml 200 ML IVPB SCH (14:08)
--- NOTE | 2016-08-15 17:01 | CP.PCM.PN ---
Subjective - Date & Time of Evaluation Date of Evaluation: 08/15/16 Time of Evaluation: 16:58 - Subjective Subjective: out of icu breathing good alert orieted no distress slight trmors Objective - Vital Signs/Intake and Output Vital Signs (last 24 hours): Temp Pulse Resp BP Pulse Ox 99.5 F 85 20 146/90 94 L 08/15/16 15:00 08/15/16 15:00 08/15/16 15:00 08/15/16 15:00 08/15/16 15:00 Intake and Output: 08/15/16 08/15/16 06:59 18:59 Intake Total 1240 0 Output Total 2850 0 Balance -1610 0 - Medications Medications: Current Medications Acetaminophen (Tylenol 325mg Tab) 650 mg PO Q6 PRN PRN Reason: Fever >100.4 F Last Admin: 08/15/16 02:51 Dose: 650 mg Albuterol/Ipratropium (Duoneb 3 Mg/0.5 Mg (3 Ml) Ud) 3 ml INH RQ6 [facility] Last Admin: 08/15/16 14:38 Dose: Not Given Heparin Sodium (Porcine) (Heparin) 5,000 units SC Q12H [facility] Last Admin: 08/15/16 14:10 Dose: 5,000 units Piperacillin Sod/Tazobactam Sod (Zosyn 3.375 Gm Iv Premix) 50 mls @ 100 mls/hr IVPB Q6H [facility] Last Admin: 08/15/16 08:49 Dose: 100 mls/hr Vancomycin/Sodium Chloride (Vancocin) 200 mls @ 133.333 mls/hr IVPB Q12H [facility] Last Admin: 08/15/16 14:08 Dose: 133.333 mls/hr Pantoprazole Sodium (Protonix Inj) 40 mg IVP DAILY [facility] Last Admin: 08/15/16 09:29 Dose: 40 mg - Labs Labs: 08/15/16 06:30 08/15/16 06:30 PT 11.8 SECONDS (9.7-12.2) 08/13/16 09:09 INR 1.1 08/13/16 09:09 APTT 34 SECONDS (21-34) 08/13/16 09:09 - Constitutional Appears: Non-toxic - Head Exam Head Exam: NORMAL INSPECTION - Eye Exam Eye Exam: Normal appearance Pupil Exam: NORMAL ACCOMODATION - ENT Exam ENT Exam: Normal Exam - Neck Exam Neck Exam: Full ROM - Respiratory Exam Respiratory Exam: NORMAL BREATHING PATTERN - Cardiovascular Exam Cardiovascular Exam: REGULAR RHYTHM - GI/Abdominal Exam GI & Abdominal Exam: Normal Bowel Sounds - Rectal Exam Rectal Exam: NORMAL INSPECTION - Extremities Exam Extremities Exam: Full ROM - Back Exam Back Exam: NORMAL INSPECTION - Neurological Exam Neurological Exam: Alert, Oriented x3 - Psychiatric Exam Psychiatric exam: Normal Affect - Skin Skin Exam: Normal Color Assessment and Plan - Assessment and Plan (Free Text) Assessment: hi bilirubin tremors s/p alc intocication Plan: as per orders
[2016-08-16] MEDS: Albuterol-Ipratrop 3 mg / 0.5 (3 ml) UD INH SCH ×4 (01:19→20:00)
[2016-08-16] MEDS: Piperacill/Tazo 3.375gm in Dex 50 ML IVPB SCH ×5 (02:15→20:16)
[2016-08-16] MEDS: Vancomycin 1 gm/NS 200 ml 200 ML IVPB SCH ×2 (03:00→14:49)
--- NOTE | 2016-08-16 05:21 | CON ---
DATE: 08/15/2016 CHIEF COMPLAINT AND REASON FOR CONSULTATION: The patient referred by Dr. Suarez for comanagement. The patient has history of alcoholism. HISTORY OF PRESENT ILLNESS: This is the case of a 60-year-old male with long history of alcoholism s galina his teens. Patient was found to be very drowsy and intoxicated. Blood alcohol level was over 2 35. The patient was noted to be having increasing somnolence, was admitted in ICU and now currently admitted to the floor for further treatment. The patient referred for comanagement as the patient bolden s history of drinking. The patient reports he drinks 5-6 cans of beer daily. His blood alcohol leve l as stated was 235. The patient reports his longest period of sobriety was 1-1/2 months. He said h e has never been to rehab or detox before. The patient also, when asked if he wants to stop drinking , he said he only wants to be detoxed. He does not want any outpatient or any inpatient treatment. PAST MEDICAL HISTORY: As stated, has history of alcoholism. History of respiratory depression. ALLERGIES: No known allergies. DRUG AND ALCOHOL HISTORY: Denies any drug use, long history of alcoholism. PSYCHOSOCIAL HISTORY: The patient is retired. He used to be a avionics mechanic. He lives with a friend. LIST OF CURRENT MEDICATIONS: Includes DuoNeb, heparin, Protonix, vancomycin and Zosyn. VITAL SIGNS: Temperature is 99.5, pulse rate is 85, blood pressure is 146/20 and respirations is 94. REVIEW OF SYSTEMS: The patient's last drink was about 3 days prior to admission. The patient seen t deanna, was noted to be a little bit restless. He said he wants to be detoxed. LABORATORY DATA: His platelet is 239, H and H is 11.5/34, his creatinine is 1. Liver function tests are within normal limits. Toxicology showed alcohol was 235, negative UDS. PHYSICAL EXAM: GENERAL: The patient is alert and oriented x 3, resting in bed, somewhat evasive when seen, he is co mplaining of anxiety off and on. SKIN: No diaphoresis. HEENT: No headache or dizziness. NECK: Supple. RESPIRATORY: No dyspnea. CARDIOVASCULAR: No chest pain. GASTROINTESTINAL: No nausea or vomiting. EXTREMITIES: Has mild tremors. MUSCULOSKELETAL: Feels weak. NEUROLOGIC: Alert, oriented x 3. MENTAL STATUS EXAMINATION: Elderly male who looks his age with long history of alcoholism, oriented x 3. Speech spontaneous. Affect is reactive. Mood is anxious. Thought process coherent. Thought content: The patient states that he wants to be detoxed, but not interested for aftercare. No paran oia. No suicidal or homicidal ideation. Attention and memory seem to be fair. Insight and judgment limited. Impulse control is fair at this time. IMPRESSION: History of alcohol intoxication, alcohol dependence. History of respiratory depression. PLAN AND RECOMMENDATION: The patient seen, meds reviewed. The patient is a heavy alcoholic and also complaining of anxiety. We will put him in Librium detox 50 mg q. 6 times 1 day, 50 mg q. 8 times 1 day, Librium 50 mg q. 12 for 1 day, then Librium 50 mg daily x 1 day. May have Librium 50 mg q. 4 h ours p.r.n. for agitation. I will put him on thiamine 100 mg p.o. b.i.d. and MVI 1 tab p.o. daily. Once patient is medically stable, patient could will be referred to AA. At this time when seen the p jackie does not want any kind of help for his alcoholism. He said that he drinks, but he is not an a lcoholic, and states that he only drinks occasionally. Prognosis is guarded at this time. Will keep patient for detox and monitor his symptoms accordingly. Thank you for the consult. Dannie Gaffney MD cc: [phone] TT: 08/16/2016 05:21:03 Confirmation # [id number] Dictation # [id number] arnaldo
[2016-08-16 07:49] LABS: CHLORIDE 99 mmol/L (98-107); POTASSIUM 3.4 mmol/L (3.6-5.2); SODIUM 138 mmol/L (132-148)
[2016-08-16 07:51] LABS: BILIRUBIN,TOTAL 1.7 mg/dL (0.2-1.3); CARBON DIOXIDE 25 mmol/L (22-30); GFR AFRICAN-AMERICAN > 60
[2016-08-16 07:52] LABS: ALKALINE PHOSPHATASE 45 U/L (38-126); ALT/SGPT 23 U/L (21-72); AST/SGOT 41 U/L (17-59); BLOOD UREA NITROGEN 11 mg/dL (9-20); CALCIUM 8.7 mg/dl (8.6-10.4); GLUCOSE,RANDOM 94 mg/dL (75-110); TOTAL PROTEIN 6.9 g/dL (6.3-8.3)
[2016-08-16] MEDS ORDERED: Albuterol-Ipratrop 3 mg / 0.5 (3 ml) UD INH SCH ×2 (10:00→13:00)
[2016-08-16] MEDS: Multiple Vitamins Tab PO SCH (11:00)
--- NOTE | 2016-08-16 11:30 | CP.PCM.CON ---
History of Present Illness - History of Present Illness History of Present Illness: Reason for consultation: Bilateral pneumonia Patient is a 60M with PMHx of ETOH abuse presents with public intoxication. Pt was evaluated in the ED on 08/12/16 and kept for observation. Patient was admitted to the ICU on 08/13/16 with respiratory depression, altered mental status and alcohol intoxication, CAT scan done showed bilateral lung infiltrate. Patient was initially put on BiPAP and started on IV antibiotics with significant improvement and was later transferred to floor. Patient clinically much improved than complaining of slight cough without any shortness of breath, denies fever or chills. Review of Systems - Review of Systems All systems: reviewed and no additional remarkable complaints except (Slight cough) Past Patient History - Infectious Disease Hx of Infectious Diseases: None - Past Social History Smoking Status: Never Smoked - CARDIAC Hx Hypertension: Yes - PULMONARY Hx Tuberculosis: No - NEUROLOGICAL Hx Seizures: No - HEMATOLOGICAL/ONCOLOGICAL Hx Human Immunodeficiency Virus (HIV): No - MUSCULOSKELETAL/RHEUMATOLOGICAL Hx Falls: No - GENITOURINARY/GYNECOLOGICAL Hx Sexually Transmitted Disorders: No - PSYCHIATRIC Hx Substance Use: No - SURGICAL HISTORY Hx Surgeries: No - ANESTHESIA Hx Anesthesia: No Meds Allergies/Adverse Reactions: Allergies Allergy/AdvReac Type Severity Reaction Status Date / Time No Known Allergies Allergy Verified 08/12/16 20:37 - Medications Medications: Current Medications Acetaminophen (Tylenol 325mg Tab) 650 mg PO Q6 PRN PRN Reason: Fever >100.4 F Last Admin: 08/15/16 21:43 Dose: 650 mg Albuterol/Ipratropium (Duoneb 3 Mg/0.5 Mg (3 Ml) Ud) 3 ml INH RQ6 [facility] Last Admin: 08/16/16 01:19 Dose: Not Given Albuterol/Ipratropium (Duoneb 3 Mg/0.5 Mg (3 Ml) Ud) 3 ml INH RTID KRISTY Chlordiazepoxide (Librium) 50 mg PO Q8 KRISTY PRN Reason: Taper Stop: 08/21/16 18:59 Last Admin: 08/16/16 07:55 Dose: 50 mg Chlordiazepoxide (Librium) 50 mg PO Q4H PRN PRN Reason: Anxiety Heparin Sodium (Porcine) (Heparin) 5,000 units SC Q12H [facility] Last Admin: 08/16/16 02:15 Dose: 5,000 units Piperacillin Sod/Tazobactam Sod (Zosyn 3.375 Gm Iv Premix) 50 mls @ 100 mls/hr IVPB Q6H [facility] Last Admin: 08/16/16 09:40 Dose: 100 mls/hr Vancomycin/Sodium Chloride (Vancocin) 200 mls @ 133.333 mls/hr IVPB Q12H [facility] Last Admin: 08/16/16 03:00 Dose: 133.333 mls/hr Multivitamins (Hexavitamin) 1 tab PO DAILY [facility] Last Admin: 08/16/16 11:00 Dose: 1 tab Pantoprazole Sodium (Protonix Inj) 40 mg IVP DAILY [facility] Last Admin: 08/16/16 11:00 Dose: 40 mg Thiamine HCl (Vitamin B1 Tab) 100 mg PO BID [facility] Last Admin: 08/16/16 11:00 Dose: 100 mg Physical Exam - Constitutional Appears: No Acute Distress - Head Exam Head Exam: ATRAUMATIC, NORMOCEPHALIC - Eye Exam Eye Exam: Normal appearance - ENT Exam ENT Exam: Mucous Membranes Moist - Neck Exam Neck exam: Positive for: Normal Inspection - Respiratory Exam Respiratory Exam: Rales - Cardiovascular Exam Cardiovascular Exam: REGULAR RHYTHM - GI/Abdominal Exam GI & Abdominal Exam: Normal Bowel Sounds - Extremities Exam Extremities exam: Positive for: normal inspection - Neurological Exam Neurological exam: Alert, Oriented x3 Results - Vital Signs Recent Vital Signs: Last Vital Signs Temp 100.2 F H 08/16/16 07:46 Pulse 84 08/16/16 07:46 Resp 20 08/16/16 07:46 BP 102/61 08/16/16 07:46 Pulse Ox 93 L 08/16/16 07:46 - Labs Result Diagrams: 08/15/16 06:30 08/16/16 06:30 Labs: Laboratory Results - last 24 hr 08/16/16 06:30 Sodium 138 Potassium 3.4 L Chloride 99 Carbon Dioxide 25 Anion Gap 17 BUN 11 Creatinine 1.1 Est GFR ( Amer) > 60 Est GFR (Non-Af Amer) > 60 Random Glucose 94 Calcium 8.7 Total Bilirubin 1.7 H AST 41 ALT 23 Alkaline Phosphatase 45 Total Protein 6.9 Albumin 3.5 Globulin 3.4 Albumin/Globulin Ratio 1.0 Assessment & Plan (1) Pneumonia Status: Acute Comment: CAT scan of the chest consistent with bilateral infiltrate most likely aspiration pneumonia. Continue antibiotics. Follow-up chest x-ray. Clinical impression much improved (2) Alcohol intoxication Status: Acute
[2016-08-16] MEDS ORDERED: Potassium Chloride 20 mEq ER Tab PO ONE ×2 (12:52→15:00)
--- NOTE | 2016-08-16 13:22 | US ---
HISTORY: hi bilirubin COMPARISON: None available. TECHNIQUE: Sonographic evaluation of the abdomen. FINDINGS: LIVER: Measures 15.9 cm in sagittal dimension and appears unremarkable. No focal hepatic mass identified. The main portal vein appears patent with normal directional flow. No intrahepatic bile duct dilatation. GALLBLADDER: No gallstones. No gallbladder wall thickening. Negative sonographic Craig's sign as assessed by the telegraph and teletype operator. COMMON BILE DUCT: Measures 5 mm. PANCREAS: Not well visualized. RIGHT KIDNEY: Measures 12.0 x 4.9 x 5.8cm. No obstructing calculus or hydronephrosis identified. 1.0 x 1.0 x 0.9 cm midpole cyst. LEFT KIDNEY: Measures 11.1 x 7.4 x 6.4cm. No obstructing calculus or hydronephrosis identified. 0.7 x 0.6 x 0.7 cm upper pole cyst. Nonobstructing echogenic foci consistent with calcifications noted within the midpole renal cortex. SPLEEN: Measures approximately 9.3 cm. AORTA: Limited views appear unremarkable. IVC: Limited views appear unremarkable. OTHER FINDINGS: None. IMPRESSION: Bilateral renal cysts. Sub cm left midpole renal cortical calcifications. No hydronephrosis bilaterally.
--- NOTE | 2016-08-16 19:08 | PN ---
DATE: 08/16/2016 SUBJECTIVE: The patient is seen. The patient is tolerating detox, although he still insists he is "not an alcoholic". The patient also having a low-grade fever, but other than that, no obvious signs and symptoms of alcohol withdrawal. The patient also is trying to minimize his drinking, stating that again he is not an alcoholic. VITAL SIGNS: Temperature is 99.7, pulse rate is 80, blood pressure 114/71, oxygen saturation is 94%. The patient is on Librium taper, currently taken today 50 mg q. 8. REVIEW OF SYSTEMS: GENERAL: The patient is alert, verbal, resting in bed. States he can stay in the hospital for duration of his detox, cooperative, no behavioral problem. SKIN: No diaphoresis. HEENT: No headache, no dizziness. NECK: Supple. RESPIRATORY: No dyspnea. CARDIOVASCULAR: No chest pain. GASTROINTESTINAL: He is eating well. No nausea, no vomiting. EXTREMITIES: Has mild tremors. MUSCULOSKELETAL: Feels weak. NEUROLOGIC: Alert, oriented x 3. GENITOURINARY: No urinary problems. MENTAL STATUS EXAMINATION: Elderly male who looks stated age, oriented x 3. Mood is calm. Affect is reactive. Speech spontaneous. He has been compliant with his meds. He states he is sleeping better, eating better. Thought process : Coherent. Thought content: No overt psychosis. No suicidal or homicidal ideation. The patient continues denying he is an alcoholic despite his extensive alcohol history. Attention and memory seem to be fair. Insight and judgment limited. Impulse control is fair at this time. _As stated no psychosis, no suicidal or homicidal ideation. Attention and memory. IMPRESSION: History of alcohol dependence, alcohol intoxication alcohol withdrawal. PLAN AND RECOMMENDATIONS: The patient seen, meds reviewed. Continue current Librium protocol. Continue treatment plan as outlined. Once patient is medically cleared, was just finished with detox, will try to refer him to AA. The patient is in denial of his alcohol problem and states that he is not an alcoholic. Dannie Gaffney MD cc: [phone] TT: 08/16/2016 19:08:01 Confirmation # [id number] Dictation # [id number] arnaldo [facility]
[2016-08-17] MEDS: Albuterol-Ipratrop 3 mg / 0.5 (3 ml) UD INH SCH ×3 (01:08→13:54)
[2016-08-17] MEDS: Piperacill/Tazo 3.375gm in Dex 50 ML IVPB SCH ×2 (02:40→15:23)
[2016-08-17] MEDS: Vancomycin 1 gm/NS 200 ml 200 ML IVPB SCH ×2 (03:25→15:10)
[2016-08-17 07:12] LABS: CHLORIDE 102 mmol/L (98-107); POTASSIUM 3.4 mmol/L (3.6-5.2); SODIUM 140 mmol/L (132-148)
[2016-08-17 07:15] LABS: BLOOD UREA NITROGEN 12 mg/dL (9-20); CARBON DIOXIDE 24 mmol/L (22-30); GFR AFRICAN-AMERICAN > 60
[2016-08-17 07:16] LABS: CALCIUM 8.5 mg/dl (8.6-10.4); GLUCOSE,RANDOM 101 mg/dL (75-110)
--- NOTE | 2016-08-17 09:47 | CP.PCM.PN ---
Subjective - Date & Time of Evaluation Date of Evaluation: 08/17/16 Time of Evaluation: 09:20 - Subjective Subjective: Patient seen and examined. overnite temp spike to 101 Denies shortness of breath Complaining of slight cough Afebrile Chest x-ray consistent with bibasilar infiltrate Objective - Vital Signs/Intake and Output Vital Signs (last 24 hours): Temp Pulse Resp BP Pulse Ox 98.1 F 84 20 120/82 95 08/16/16 23:47 08/16/16 23:47 08/16/16 23:47 08/16/16 23:47 08/16/16 23:47 Intake and Output: 08/17/16 08/17/16 06:59 18:59 Intake Total 1700 Balance 1700 - Medications Medications: Current Medications Acetaminophen (Tylenol 325mg Tab) 650 mg PO Q6 PRN PRN Reason: Fever >100.4 F Last Admin: 08/16/16 20:50 Dose: 650 mg Albuterol/Ipratropium (Duoneb 3 Mg/0.5 Mg (3 Ml) Ud) 3 ml INH RQ6 [facility] Last Admin: 08/17/16 08:30 Dose: 3 ml Chlordiazepoxide (Librium) 50 mg PO Q8 KRISTY PRN Reason: Taper Stop: 08/21/16 18:59 Last Admin: 08/17/16 06:07 Dose: Not Given Chlordiazepoxide (Librium) 50 mg PO Q4H PRN PRN Reason: Anxiety Heparin Sodium (Porcine) (Heparin) 5,000 units SC Q12H [facility] Last Admin: 08/17/16 02:40 Dose: 5,000 units Piperacillin Sod/Tazobactam Sod (Zosyn 3.375 Gm Iv Premix) 50 mls @ 100 mls/hr IVPB Q6H [facility] Last Admin: 08/17/16 02:40 Dose: 100 mls/hr Vancomycin/Sodium Chloride (Vancocin) 200 mls @ 133.333 mls/hr IVPB Q12H [facility] Last Admin: 08/17/16 03:25 Dose: 133.333 mls/hr Multivitamins (Hexavitamin) 1 tab PO DAILY [facility] Last Admin: 08/16/16 11:00 Dose: 1 tab Pantoprazole Sodium (Protonix Inj) 40 mg IVP DAILY [facility] Last Admin: 08/16/16 11:00 Dose: 40 mg Thiamine HCl (Vitamin B1 Tab) 100 mg PO BID [facility] Last Admin: 08/16/16 17:09 Dose: 100 mg - Labs Labs: 08/15/16 06:30 08/17/16 06:51 PT 11.8 SECONDS (9.7-12.2) 08/13/16 09:09 INR 1.1 08/13/16 09:09 APTT 34 SECONDS (21-34) 08/13/16 09:09 - Head Exam Head Exam: ATRAUMATIC, NORMOCEPHALIC - Eye Exam Eye Exam: Normal appearance - ENT Exam ENT Exam: Mucous Membranes Moist - Respiratory Exam Respiratory Exam: Rales - Cardiovascular Exam Cardiovascular Exam: REGULAR RHYTHM - GI/Abdominal Exam GI & Abdominal Exam: Soft, Normal Bowel Sounds - Extremities Exam Extremities Exam: Normal Inspection Assessment and Plan (1) Pneumonia Assessment & Plan: Continue antibiotics pro Calcitonin level Follow-up chest x-ray Status: Acute (2) Alcohol intoxication Status: Acute
--- NOTE | 2016-08-17 09:56 | RAD ---
PROCEDURE: CHEST RADIOGRAPH, 1 VIEW HISTORY: PNEUMONIA F/U COMPARISON: Multiple chest radiographs most recently from 08/14/2016. FINDINGS: LUNGS: Hazy opacity throughout both lungs particularly in the lower lung zones. Opacity in the right hilar region has remained essentially unchanged since the prior radiograph from 08/14/2016. There is mild deviation of the trachea to the right. This also remains stable. PLEURA: Possible small pleural effusion on the right. CARDIOVASCULAR: Normal. OSSEOUS STRUCTURES: The osseous structures demonstrate degenerative changes. VISUALIZED UPPER ABDOMEN: Upper abdomen is suboptimally evaluated. OTHER FINDINGS: None. IMPRESSION: Hazy opacity throughout both lungs particularly in the lower lung zones. This has remained essentially unchanged.
[2016-08-17] MEDS: Multiple Vitamins Tab PO SCH (10:30)
--- NOTE | 2016-08-17 11:57 | CP.PCM.PN ---
Subjective - Date & Time of Evaluation Date of Evaluation: 08/17/16 Time of Evaluation: 11:55 - Subjective Subjective: pt still febrile and on librium for alc withdrawal Objective - Vital Signs/Intake and Output Vital Signs (last 24 hours): Temp Pulse Resp BP Pulse Ox 99.8 F H 90 18 106/68 95 08/17/16 08:00 08/17/16 08:00 08/17/16 08:00 08/17/16 08:00 08/17/16 08:00 Intake and Output: 08/17/16 08/17/16 06:59 18:59 Intake Total 1700 Balance 1700 - Medications Medications: Current Medications Acetaminophen (Tylenol 325mg Tab) 650 mg PO Q6 PRN PRN Reason: Fever >100.4 F Last Admin: 08/16/16 20:50 Dose: 650 mg Albuterol/Ipratropium (Duoneb 3 Mg/0.5 Mg (3 Ml) Ud) 3 ml INH RQ6 [facility] Last Admin: 08/17/16 08:30 Dose: 3 ml Chlordiazepoxide (Librium) 50 mg PO Q8 KRISTY PRN Reason: Taper Stop: 08/21/16 18:59 Last Admin: 08/17/16 06:07 Dose: Not Given Chlordiazepoxide (Librium) 50 mg PO Q4H PRN PRN Reason: Anxiety Heparin Sodium (Porcine) (Heparin) 5,000 units SC Q12H [facility] [place] Last Admin: 08/17/16 02:40 Dose: 5,000 units Piperacillin Sod/Tazobactam Sod (Zosyn 3.375 Gm Iv Premix) 50 mls @ 100 mls/hr IVPB Q6H [facility] [place] Last Admin: 08/17/16 02:40 Dose: 100 mls/hr Vancomycin/Sodium Chloride (Vancocin) 200 mls @ 133.333 mls/hr IVPB Q12H [facility] [place] Last Admin: 08/17/16 03:25 Dose: 133.333 mls/hr Multivitamins (Hexavitamin) 1 tab PO DAILY [facility] [place] Last Admin: 08/17/16 10:30 Dose: 1 tab Pantoprazole Sodium (Protonix Inj) 40 mg IVP DAILY [facility] [place] Last Admin: 08/17/16 10:30 Dose: 40 mg Thiamine HCl (Vitamin B1 Tab) 100 mg PO BID [facility] [place] Last Admin: 08/17/16 10:30 Dose: 100 mg - Labs Labs: 08/15/16 06:30 08/17/16 06:51 PT 11.8 SECONDS (9.7-12.2) 08/13/16 09:09 INR 1.1 08/13/16 09:09 APTT 34 SECONDS (21-34) 08/13/16 09:09 - Constitutional Appears: Non-toxic - Head Exam Head Exam: NORMAL INSPECTION - Eye Exam Eye Exam: Normal appearance Pupil Exam: NORMAL ACCOMODATION - ENT Exam ENT Exam: Mucous Membranes Moist - Neck Exam Neck Exam: Full ROM - Respiratory Exam Respiratory Exam: Decreased Breath Sounds, NORMAL BREATHING PATTERN - Cardiovascular Exam Cardiovascular Exam: Tachycardia, REGULAR RHYTHM - GI/Abdominal Exam GI & Abdominal Exam: Normal Bowel Sounds - Rectal Exam Rectal Exam: NORMAL INSPECTION - Extremities Exam Extremities Exam: Normal Inspection - Back Exam Back Exam: NORMAL INSPECTION - Neurological Exam Neurological Exam: Oriented x3 Assessment and Plan - Assessment and Plan (Free Text) Assessment: pnumonia fever alc withdrawal will cot as per orders
--- NOTE | 2016-08-17 13:07 | CP.PCM.CON ---
History of Present Illness - History of Present Illness History of Present Illness: INFECTIOUS DISEASE CONSULTATION; Patient is a 60M with PMHx of ETOH abuse presents with ALCOHOL intoxicationON . Pt was evaluated in the ED on 08/12/16 and kept for observation. Patient was admitted to the ICU on 08/13/16 with respiratory depression, altered mental status and alcohol intoxication, CAT scan CHEST/PULMONARY ANGIOGRAMdone showed bilateral lung infiltrate. NO EVIDENCE OF PULMONARY EMBOLISM. Patient was initially put on BiPAP and started on iv ZOSYN /AND VANCOMYCIN with clinical improvement and was later transferred to floor. INFECTIOUS DISEASE CONSULTATION REQUESTED BY DR. HANSON-CONTACT CLERK PATIENT HAS BEEN SPIKING FEVERS OFF AND ON UP TO 100.8 AND 101FOR THE PAST FEW DAYS.PATIENT COMPLAINS OF COUGH WITH SCANTY EXPECTORATION. DENIES ANY HEMOPTYSIS OR HEMATEMESIS. dENIES NIGHT SWEATS OR LOSS OF WEIGHT. BLOOD CULTURES AND URINE CULTURES HAVE BEEN NEGATIVE TO DATE. CHEST X-RAY CONTINUES TO SHOW BILATERAL HAZY OPACITIES BOTH LOWER LUNG ZONES. PATIENT DENIES ANY HEADACHE, SINUS PROBLEM, CHEST PAIN, ABDOMINAL PAIN, DIARRHEA OR OBSTIPATION. PATIENT DENIES ANY NAUSEA VOMITING. PATIENT DENIES ANY RECENT OR PAST CONTACT WITH TB. PATIENT DENIES ANY HISTORY OF SEXUALLY TRANSMITTED DISEASE OR HIV. PATIENT DENIES ANY RECENT TRAVEL,OR CONTACT WITH SICK PET. PATIENT DENIES ANY DYSURIA, HEMATURIA. PATIENT ABDOMINAL ULTRASOUND SHOWS BILATERAL RENAL CYSTS BUT NO HYDRONEPHROSIS OR STONES. PMH: HTN Family History: States: Unknown Family Hx - Social History Hx Alcohol Use: Yes Hx Substance Use: No ALLERGY; NKA SURGICAL HISTORY; A CHILD BUT DOES NOT REMEMBER WHAT KIND OF SURGERY. Review of Systems - Constitutional Constitutional: Daytime Sleepiness, Fever, Lethargy. absent: Night Sweats - EENT Nose/Mouth/Throat: absent: Nasal Discharge, Sinus Pressure, Dry Mouth, Odynophagia, Sore Throat, Neck Pain - Cardiovascular Cardiovascular: Dyspnea on Exertion. absent: Chest Pain, Leg Edema - Respiratory Respiratory: Cough, Chest Congestion - Gastrointestinal Gastrointestinal: absent: Diarrhea, Nausea, Vomiting - Genitourinary Genitourinary: absent: Dysuria, Hematuria, Hx Renal/Bladder Calculi - Neurological Neurological: absent: Behavioral Changes (HIM), Headaches - Hematologic/Lymphatic Hematologic: As Per HPI. absent: Easy Bleeding, Lymphadenopathy Past Patient History - Infectious Disease Hx of Infectious Diseases: None - Past Social History Smoking Status: Never Smoked - CARDIAC Hx Hypertension: Yes - PULMONARY Hx Tuberculosis: No - NEUROLOGICAL Hx Seizures: No - HEMATOLOGICAL/ONCOLOGICAL Hx Human Immunodeficiency Virus (HIV): No - MUSCULOSKELETAL/RHEUMATOLOGICAL Hx Falls: No - GENITOURINARY/GYNECOLOGICAL Hx Sexually Transmitted Disorders: No - PSYCHIATRIC Hx Substance Use: No - SURGICAL HISTORY Hx Surgeries: No - ANESTHESIA Hx Anesthesia: No Meds Allergies/Adverse Reactions: Allergies Allergy/AdvReac Type Severity Reaction Status Date / Time No Known Allergies Allergy Verified 08/12/16 20:37 - Medications Medications: Current Medications Acetaminophen (Tylenol 325mg Tab) 650 mg PO Q6 PRN PRN Reason: Fever >100.4 F Last Admin: 08/16/16 20:50 Dose: 650 mg Albuterol/Ipratropium (Duoneb 3 Mg/0.5 Mg (3 Ml) Ud) 3 ml INH RQ6 [facility] Last Admin: 08/17/16 08:30 Dose: 3 ml Chlordiazepoxide (Librium) 50 mg PO Q8 KRISTY PRN Reason: Taper Stop: 08/21/16 18:59 Last Admin: 08/17/16 06:07 Dose: Not Given Chlordiazepoxide (Librium) 50 mg PO Q4H PRN PRN Reason: Anxiety Heparin Sodium (Porcine) (Heparin) 5,000 units SC Q12H [facility] Last Admin: 08/17/16 02:40 Dose: 5,000 units Piperacillin Sod/Tazobactam Sod (Zosyn 3.375 Gm Iv Premix) 50 mls @ 100 mls/hr IVPB Q6H [facility] Last Admin: 08/17/16 02:40 Dose: 100 mls/hr Vancomycin/Sodium Chloride (Vancocin) 200 mls @ 133.333 mls/hr IVPB Q12H [facility] Last Admin: 08/17/16 03:25 Dose: 133.333 mls/hr Multivitamins (Hexavitamin) 1 tab PO DAILY [facility] Last Admin: 08/17/16 10:30 Dose: 1 tab Pantoprazole Sodium (Protonix Inj) 40 mg IVP DAILY [facility] Last Admin: 08/17/16 10:30 Dose: 40 mg Thiamine HCl (Vitamin B1 Tab) 100 mg PO BID [facility] Last Admin: 08/17/16 10:30 Dose: 100 mg Physical Exam - Constitutional Appears: No Acute Distress - Head Exam Head Exam: NORMAL INSPECTION - Eye Exam Eye Exam: EOMI, PERRL, Scleral icterus - ENT Exam ENT Exam: Normal Oropharynx - Neck Exam Neck exam: Positive for: Normal Inspection. Negative for: Lymphadenopathy, Meningismus, Thyromegaly - Respiratory Exam Respiratory Exam: Rhonchi (BILATERAL LOWER LUNG ZONES.) - Cardiovascular Exam Cardiovascular Exam: Tachycardia, REGULAR RHYTHM, +S1, +S2 - GI/Abdominal Exam GI & Abdominal Exam: Normal Bowel Sounds, Soft. absent: Organomegaly - Exam Exam: NORMAL INSPECTION. absent: Uretheral Discharge - Extremities Exam Extremities exam: Positive for: pedal pulses present. Negative for: calf tenderness - Neurological Exam Neurological exam: Alert, CN II-XII Intact, Oriented x3, Reflexes Normal - Psychiatric Exam Psychiatric exam: Normal Mood - Skin Skin Exam: Normal Color, Warm Results - Vital Signs Recent Vital Signs: Last Vital Signs Temp 99.8 F H 08/17/16 08:00 Pulse 90 08/17/16 08:00 Resp 18 08/17/16 08:00 BP 106/68 08/17/16 08:00 Pulse Ox 95 08/17/16 08:00 - Labs Result Diagrams: 08/15/16 06:30 08/17/16 06:51 Labs: Laboratory Results - last 24 hr 08/17/16 08/17/16 01:30 06:51 Sodium 140 Potassium 3.4 L Chloride 102 Carbon Dioxide 24 Anion Gap 17 BUN 12 Creatinine 1.1 Est GFR ( Amer) > 60 Est GFR (Non-Af Amer) > 60 Random Glucose 101 Calcium 8.5 L Vancomycin Trough 9.1 - Imaging and Cardiology Chest x-ray Status: Report reviewed by me (SEE REPORT-bilateral lower lung zones air-space disease.) Assessment & Plan - Assessment and Plan (Free Text) Assessment: IMPRESSION; -NEW FEVER SOURCE MOST LIKELY BILATERAL PNEUMONIA. ? CAP VS ATYPICAL. -ALCOHOL ABUSE/ALCOHOL INTOXICATION. - HX HTN. PLAN; FOLLOW-UP CULTURES LAST DONE 08/15/16. SPUTUM GRAM STAIN AND CULTURE. sEDIMENTATION RATE CRP. 5TU PPD. QUANTIFERON GOLD TB TEST ATYPICAL TITERS HIV 1 AND 2 ANTIBODY FOURTH-GENERATION TEST. DC IV ZOSYN START iv mAXIPIME 1 G EVERY 8 HOURLY 08/17/16. ADD iv ZITHROMAX 500 MG DAILY DAILY 08/17/16 CONTINUE iv VANCOMYCIN 1 G EVERY 12 HOURS. F/U LFTS F/U RENAL FUNCTION CLOSELY. CASE DISCUSSED WITH THE STAFF..
[2016-08-17] MEDS ORDERED: Tuberculin 5 Units/0.1 ml Inj ID ONE (13:30)
--- NOTE | 2016-08-17 13:57 | PN ---
DATE: 08/17/2016 SUBJECTIVE: The patient is seen. The patient is tolerating Librium detox. He said he is feeling mu ch better, but still feels weak. The patient is currently treated for aspiration pneumonia, on antib iotics. He said he is willing to stay in the hospital until he feels much better and once he is [facility] cleared for discharge. The patient is on vancomycin and Zosyn. VITAL SIGNS: Temperature is 99.8, pulse rate is 90, blood pressure is 106/68, respirations 18, oxyge n sat is 95%. The patient is currently on Librium taper. REVIEW OF SYSTEMS: GENERAL: The patient is alert, oriented x 3, seen in his room, feeling much better, but still feels weak. SKIN: No diaphoresis. HEENT: No headache, no dizziness. NECK: Supple. RESPIRATORY: No dyspnea. CARDIOVASCULAR: No chest pain. GASTROINTESTINAL: He is eating better. EXTREMITIES: Mild tremors noted. MUSCULOSKELETAL: Still feels weak. NEUROLOGIC: Alert and oriented x 3. GENITOURINARY: No urinary problems. MENTAL STATUS EXAMINATION: Elderly male who looks stated age. Alert, oriented x 3. Mood is calm. Affect is reactive. Speech spontaneous. Thought process coherent. Thought content: The patient is willing to stay in the hospital. The patient is aware he has pneumonia, aspiration type and willing to be treated. He is also completing his Librium detox; however, patient still trying to minimize h is drinking. As stated, no psychosis. No suicidal or homicidal ideation. Attention and memory seem to be fair. Insight and judgment fair. Impulse control is fair. IMPRESSION: History of alcohol intoxication, alcohol dependence, alcohol withdrawal, aspiration pneu monia, history of respiratory depression. PLAN AND RECOMMENDATIONS: The patient seen, meds reviewed. Continue present psych meds as ordered. The patient is on Librium detox. Continue antibiotics as ordered. The patient seems to be improvin g clinically. The patient is not exhibiting signs and symptoms of alcohol withdrawal at this time; h owever, he seems to be very reluctant to have any aftercare for his alcohol problem. Dannie Gaffney MD cc: [phone] TT: 08/17/2016 13:56:54 Confirmation # [id number] Dictation # [id number]
[2016-08-17] MEDS: Cefepime IV 1 gm in Dextrose 50 ML IVPB SCH ×2 (15:08→21:50)
[2016-08-17] MEDS: Azithromycin 500 MG in Sodium Chloride 0.9% 250 ML IVPB SCH (19:01)
[2016-08-18] MEDS: Albuterol-Ipratrop 3 mg / 0.5 (3 ml) UD INH SCH ×3 (01:17→13:39)
[2016-08-18] MEDS: Vancomycin 1 gm/NS 200 ml 200 ML IVPB SCH ×2 (02:00→14:03)
[2016-08-18] MEDS: Cefepime IV 1 gm in Dextrose 50 ML IVPB SCH ×2 (05:00→14:01)
[2016-08-18 08:17] LABS: CHLORIDE 104 mmol/L (98-107); POTASSIUM 3.5 mmol/L (3.6-5.2); SODIUM 141 mmol/L (132-148)
[2016-08-18 08:19] LABS: GFR AFRICAN-AMERICAN > 60
[2016-08-18 08:20] LABS: ALB/GLOB RATIO 0.9 (1.0-2.1); ALKALINE PHOSPHATASE 39 U/L (38-126); ALT/SGPT 40 U/L (21-72); AST/SGOT 40 U/L (17-59); BILIRUBIN,DIRECT 0.3 mg/dL (0.0-0.4); BILIRUBIN,TOTAL 0.5 mg/dL (0.2-1.3); BLOOD UREA NITROGEN 11 mg/dL (9-20); CALCIUM 8.6 mg/dl (8.6-10.4); CARBON DIOXIDE 23 mmol/L (22-30); GLUCOSE,RANDOM 92 mg/dL (75-110); TOTAL PROTEIN 6.9 g/dL (6.3-8.3)
[2016-08-18] MEDS: Multiple Vitamins Tab PO SCH (10:55)
--- NOTE | 2016-08-18 11:58 | CP.PCM.PN ---
Subjective - Date & Time of Evaluation Date of Evaluation: 08/18/16 Time of Evaluation: 11:56 - Subjective Subjective: pt comfortale no fever today Objective - Vital Signs/Intake and Output Vital Signs (last 24 hours): Temp Pulse Resp BP Pulse Ox 98.4 F 71 20 122/74 95 08/18/16 08:00 08/18/16 08:00 08/18/16 08:00 08/18/16 08:00 08/18/16 08:00 Intake and Output: 08/18/16 08/18/16 06:59 18:59 Intake Total 1700 Balance 1700 - Medications Medications: Current Medications Acetaminophen (Tylenol 325mg Tab) 650 mg PO Q6 PRN PRN Reason: Fever >100.4 F Last Admin: 08/16/16 20:50 Dose: 650 mg Albuterol/Ipratropium (Duoneb 3 Mg/0.5 Mg (3 Ml) Ud) 3 ml INH RQ6 [facility] Last Admin: 08/18/16 08:52 Dose: 3 ml Chlordiazepoxide (Librium) 50 mg PO Q12 KRISTY PRN Reason: Taper Stop: 08/21/16 18:59 Last Admin: 08/18/16 10:57 Dose: Not Given Chlordiazepoxide (Librium) 50 mg PO Q4H PRN PRN Reason: Anxiety Vancomycin/Sodium Chloride (Vancocin) 200 mls @ 133.333 mls/hr IVPB Q12H [facility] Last Admin: 08/18/16 02:00 Dose: 133.333 mls/hr Cefepime HCl (Maxipime Iv 1 Gm Premix) 50 mls @ 100 mls/hr IVPB Q8H [facility] Last Admin: 08/18/16 05:00 Dose: 100 mls/hr Azithromycin 500 mg/ Sodium (Chloride) 250 mls @ 166.667 mls/hr IVPB Q24H [facility] Last Admin: 08/17/16 19:01 Dose: 166.667 mls/hr Multivitamins (Hexavitamin) 1 tab PO DAILY [facility] Last Admin: 08/18/16 10:55 Dose: 1 tab Pantoprazole Sodium (Protonix Inj) 40 mg IVP DAILY [facility] Last Admin: 08/18/16 10:55 Dose: 40 mg Thiamine HCl (Vitamin B1 Tab) 100 mg PO BID [facility] Last Admin: 08/18/16 10:55 Dose: 100 mg - Labs Labs: 08/15/16 06:30 08/18/16 08:06 PT 11.8 SECONDS (9.7-12.2) 08/13/16 09:09 INR 1.1 08/13/16 09:09 APTT 34 SECONDS (21-34) 08/13/16 09:09 - Constitutional Appears: Non-toxic - Head Exam Head Exam: NORMAL INSPECTION - Eye Exam Eye Exam: Normal appearance Pupil Exam: NORMAL ACCOMODATION - ENT Exam ENT Exam: Mucous Membranes Moist - Neck Exam Neck Exam: Full ROM - Respiratory Exam Respiratory Exam: NORMAL BREATHING PATTERN - Cardiovascular Exam Cardiovascular Exam: REGULAR RHYTHM - Exam Exam: NORMAL INSPECTION - Extremities Exam Extremities Exam: Full ROM - Back Exam Back Exam: NORMAL INSPECTION - Neurological Exam Neurological Exam: Awake, Oriented x3 - Psychiatric Exam Psychiatric exam: Normal Affect - Skin Skin Exam: Normal Color, Pallor Assessment and Plan - Assessment and Plan (Free Text) Assessment: s/p alc intoxication s/p possible pnumonitis fever improved stable Plan: my disch hpome soone
--- NOTE | 2016-08-18 13:34 | CP.PCM.PN ---
Subjective - Date & Time of Evaluation Date of Evaluation: 08/18/16 Time of Evaluation: 13:34 - Subjective Subjective: temperatures improved. still c/o cough. scanty expectoration. SPUTUM -N .LINDSAY. Objective - Vital Signs/Intake and Output Vital Signs (last 24 hours): Temp Pulse Resp BP Pulse Ox 98.4 F 71 20 122/74 95 08/18/16 08:00 08/18/16 08:00 08/18/16 08:00 08/18/16 08:00 08/18/16 08:00 Intake and Output: 08/18/16 08/18/16 06:59 18:59 Intake Total 1700 Balance 1700 - Medications Medications: Current Medications Acetaminophen (Tylenol 325mg Tab) 650 mg PO Q6 PRN PRN Reason: Fever >100.4 F Last Admin: 08/16/16 20:50 Dose: 650 mg Albuterol/Ipratropium (Duoneb 3 Mg/0.5 Mg (3 Ml) Ud) 3 ml INH RQ6 [facility] Last Admin: 08/18/16 08:52 Dose: 3 ml Chlordiazepoxide (Librium) 50 mg PO Q12 KRISTY PRN Reason: Taper Stop: 08/21/16 18:59 Last Admin: 08/18/16 10:57 Dose: Not Given Chlordiazepoxide (Librium) 50 mg PO Q4H PRN PRN Reason: Anxiety Vancomycin/Sodium Chloride (Vancocin) 200 mls @ 133.333 mls/hr IVPB Q12H [facility] Last Admin: 08/18/16 02:00 Dose: 133.333 mls/hr Cefepime HCl (Maxipime Iv 1 Gm Premix) 50 mls @ 100 mls/hr IVPB Q8H [facility] Last Admin: 08/18/16 05:00 Dose: 100 mls/hr Azithromycin 500 mg/ Sodium (Chloride) 250 mls @ 166.667 mls/hr IVPB Q24H [facility] Last Admin: 08/17/16 19:01 Dose: 166.667 mls/hr Multivitamins (Hexavitamin) 1 tab PO DAILY [facility] Last Admin: 08/18/16 10:55 Dose: 1 tab Pantoprazole Sodium (Protonix Inj) 40 mg IVP DAILY [facility] Last Admin: 08/18/16 10:55 Dose: 40 mg Thiamine HCl (Vitamin B1 Tab) 100 mg PO BID [facility]RIST[facility] Last Admin: 08/18/16 10:55 Dose: 100 mg - Labs Labs: 08/15/16 06:30 08/18/16 08:06 PT 11.8 SECONDS (9.7-12.2) 08/13/16 09:09 INR 1.1 08/13/16 09:09 APTT 34 SECONDS (21-34) 08/13/16 09:09 - Constitutional Appears: No Acute Distress - Head Exam Head Exam: NORMAL INSPECTION - Eye Exam Eye Exam: EOMI, PERRL - ENT Exam ENT Exam: Mucous Membranes Moist - Neck Exam Neck Exam: Full ROM, Normal Inspection. absent: Thyromegaly - Respiratory Exam Respiratory Exam: Rhonchi (BILATERAL RHONCHI RT. >LT) - Cardiovascular Exam Cardiovascular Exam: REGULAR RHYTHM, +S1, +S2 - GI/Abdominal Exam GI & Abdominal Exam: Soft, Normal Bowel Sounds. absent: Organomegaly - Extremities Exam Extremities Exam: Normal Capillary Refill. absent: Calf Tenderness, Pedal Edema - Neurological Exam Neurological Exam: Alert, Awake, CN II-XII Intact, Oriented x3, Reflexes Normal - Psychiatric Exam Psychiatric exam: Normal Mood - Skin Skin Exam: Normal Color, Warm Assessment and Plan - Assessment and Plan (Free Text) Assessment: IMPRESSION; -NEW FEVER SOURCE MOST LIKELY BILATERAL PNEUMONIA. ? CAP VS ATYPICAL. -ALCOHOL ABUSE/ALCOHOL INTOXICATION. - HX HTN. PLAN; FOLLOW-UP CULTURES LAST DONE 08/15/16. SPUTUM GRAM STAIN AND CULTURE. 5TU PPD.-P QUANTIFERON GOLD TB TEST-P HIV 1 AND 2 ANTIBODY FOURTH-GENERATION TEST. ON iv mAXIPIME 1 G EVERY 8 HOURLY 08/17/16. ON iv ZITHROMAX 500 MG DAILY DAILY 08/17/16 CONTINUE iv VANCOMYCIN 1 G EVERY 12 HOURS. F/U LFTS F/U RENAL FUNCTION CLOSELY. F/U FEVER CURVE
[2016-08-18] MEDS: Azithromycin 500 MG in Sodium Chloride 0.9% 250 ML IVPB SCH ×2 (15:49→17:42)
--- NOTE | 2016-08-18 16:04 | CP.PCM.PN ---
Subjective - Date & Time of Evaluation Date of Evaluation: 08/18/16 Time of Evaluation: 13:00 - Subjective Subjective: patient seen and examine afebrile complaining of slight cough Seen by infectious disease Denies shortness of breath Objective - Vital Signs/Intake and Output Vital Signs (last 24 hours): Temp Pulse Resp BP Pulse Ox 98.4 F 71 20 122/74 95 08/18/16 08:00 08/18/16 08:00 08/18/16 08:00 08/18/16 08:00 08/18/16 08:00 Intake and Output: 08/18/16 08/18/16 06:59 18:59 Intake Total 1700 Balance 1700 - Medications Medications: Current Medications Acetaminophen (Tylenol 325mg Tab) 650 mg PO Q6 PRN PRN Reason: Fever >100.4 F Last Admin: 08/16/16 20:50 Dose: 650 mg Chlordiazepoxide (Librium) 50 mg PO Q12 KRISTY PRN Reason: Taper Stop: 08/21/16 18:59 Last Admin: 08/18/16 10:57 Dose: Not Given Chlordiazepoxide (Librium) 50 mg PO Q4H PRN PRN Reason: Anxiety Vancomycin/Sodium Chloride (Vancocin) 200 mls @ 133.333 mls/hr IVPB Q12H [facility] Last Admin: 08/18/16 14:03 Dose: 133.333 mls/hr Azithromycin 500 mg/ Sodium (Chloride) 250 mls @ 250 mls/hr IVPB Q24H KRISTY Cefepime HCl 1 gm/ Sodium (Chloride) 100 mls @ 100 mls/hr IVPB Q8H [facility] Multivitamins (Hexavitamin) 1 tab PO DAILY [facility] Last Admin: 08/18/16 10:55 Dose: 1 tab Pantoprazole Sodium (Protonix Inj) 40 mg IVP DAILY [facility] Last Admin: 08/18/16 10:55 Dose: 40 mg Thiamine HCl (Vitamin B1 Tab) 100 mg PO BID [facility] Last Admin: 08/18/16 10:55 Dose: 100 mg - Labs Labs: 08/15/16 06:30 08/18/16 08:06 PT 11.8 SECONDS (9.7-12.2) 08/13/16 09:09 INR 1.1 08/13/16 09:09 APTT 34 SECONDS (21-34) 08/13/16 09:09 - Head Exam Head Exam: ATRAUMATIC, NORMOCEPHALIC - Eye Exam Eye Exam: Normal appearance - ENT Exam ENT Exam: Mucous Membranes Moist - Neck Exam Neck Exam: Normal Inspection - Respiratory Exam Respiratory Exam: Rales - GI/Abdominal Exam GI & Abdominal Exam: Soft, Normal Bowel Sounds - Extremities Exam Extremities Exam: Normal Inspection Assessment and Plan (1) Pneumonia Assessment & Plan: bilateral pneumonia Continue antibiotics per ID Follow-up culture and sensitivi Follow-up chest x-ray Status: Acute (2) Alcohol intoxication Status: Acute
--- NOTE | 2016-08-18 16:41 | PN ---
DATE: 08/18/2016 SUBJECTIVE: The patient is seen. The patient is feeling weak and has been completing his Librium de tox without any problems. The patient is currently being treated for aspiration pneumonia, on antibi otics. No signs and symptoms of alcohol withdrawal noted. VITAL SIGNS: Temperature is 98.4, pulse rate 71, blood pressure is 122/74, respirations 20, oxygen s aturation is 95%. MEDICATIONS: The patient is taking the following meds: On vancomycin and azithromycin. REVIEW OF SYSTEMS: CONSTITUTIONAL: Alert and oriented x 3, but feeling weak, seen in his room. SKIN: No diaphoresis. HEENT: No headache, no dizziness. NECK: Supple. RESPIRATORY: No dyspnea. CARDIOVASCULAR: No chest pain. GASTROINTESTINAL: He is eating better. EXTREMITIES: Gait is still unsteady. No tremors. MUSCULOSKELETAL: Feels weak. NEUROLOGIC: Alert and oriented x 3. GENITOURINARY: Not complaining of dysuria. MENTAL STATUS EXAMINATION: Elderly male who looks stated age, oriented x 3. Mood is calm. Affect i s reactive. Speech spontaneous. Thought process coherent. Thought content: No psychosis. No suic idal or homicidal ideation. Attention and memory seems to be fair. Insight and judgment limited. T he patient still denies being an alcoholic. Impulse control is fair at this time. As discussed with him, the patient has agreed to stay in the hospital for treatment of his aspiration pneumonia. IMPRESSION: History of alcohol dependence, alcohol withdrawal, alcohol intoxication as well as aspir ation pneumonia secondary to respiratory depression. PLAN AND RECOMMENDATIONS: The patient seen, meds reviewed. Will continue present management. Will continue antibiotics as ordered. The patient psych huizar is improving clinically. The patient is not exhibiting signs and symptoms of alcohol withdrawal; however, his prognosis is still guarded as the patient is still minimizing his alcohol drinking, stating he is not an alcoholic. Dannie Gaffney MD cc: [phone] TT: 08/18/2016 16:40:43 Confirmation # [id number] Dictation # [id number] navjot
[2016-08-18] MEDS: Cefepime 1 GM in Sodium Chloride 0.9% 100 ML IVPB SCH (21:42)
[2016-08-19] MEDS: Vancomycin 1 gm/NS 200 ml 200 ML IVPB SCH ×2 (01:30→15:41)
[2016-08-19] MEDS: Cefepime 1 GM in Sodium Chloride 0.9% 100 ML IVPB SCH ×3 (05:25→21:48)
[2016-08-19] MEDS: Multiple Vitamins Tab PO SCH (11:00)
--- NOTE | 2016-08-19 12:15 | CP.PCM.PN ---
Subjective - Date & Time of Evaluation Date of Evaluation: 08/19/16 Time of Evaluation: 12:13 - Subjective Subjective: pt has slight cough no tremors Objective - Vital Signs/Intake and Output Vital Signs (last 24 hours): Temp Pulse Resp BP Pulse Ox 98.6 F 85 20 120/75 96 08/19/16 08:38 08/19/16 08:38 08/19/16 08:38 08/19/16 08:38 08/19/16 08:38 Intake and Output: 08/19/16 08/19/16 06:59 18:59 Intake Total 700 Balance 700 - Medications Medications: Current Medications Acetaminophen (Tylenol 325mg Tab) 650 mg PO Q6 PRN PRN Reason: Fever >100.4 F Last Admin: 08/16/16 20:50 Dose: 650 mg Chlordiazepoxide (Librium) 50 mg PO Q12 KRISTY PRN Reason: Taper Stop: 08/21/16 18:59 Last Admin: 08/19/16 11:00 Dose: 50 mg Chlordiazepoxide (Librium) 50 mg PO Q4H PRN PRN Reason: Anxiety Vancomycin/Sodium Chloride (Vancocin) 200 mls @ 133.333 mls/hr IVPB Q12H [facility] Last Admin: 08/19/16 01:30 Dose: 133.333 mls/hr Azithromycin 500 mg/ Sodium (Chloride) 250 mls @ 250 mls/hr IVPB Q24H [facility] Last Admin: 08/18/16 17:42 Dose: 250 mls/hr Cefepime HCl 1 gm/ Sodium (Chloride) 100 mls @ 100 mls/hr IVPB Q8H [facility] Last Admin: 08/19/16 05:25 Dose: 100 mls/hr Multivitamins (Hexavitamin) 1 tab PO DAILY [facility] Last Admin: 08/19/16 11:00 Dose: 1 tab Pantoprazole Sodium (Protonix Inj) 40 mg IVP DAILY [facility] Last Admin: 08/19/16 11:00 Dose: 40 mg Thiamine HCl (Vitamin B1 Tab) 100 mg PO BID [facility] Last Admin: 08/19/16 11:00 Dose: 100 mg - Labs Labs: 08/15/16 06:30 08/18/16 08:06 PT 11.8 SECONDS (9.7-12.2) 08/13/16 09:09 INR 1.1 08/13/16 09:09 APTT 34 SECONDS (21-34) 08/13/16 09:09 - Constitutional Appears: Non-toxic - Eye Exam Eye Exam: Normal appearance Pupil Exam: NORMAL ACCOMODATION - ENT Exam ENT Exam: Mucous Membranes Moist - Neck Exam Neck Exam: Full ROM - Respiratory Exam Respiratory Exam: NORMAL BREATHING PATTERN - Cardiovascular Exam Cardiovascular Exam: REGULAR RHYTHM - GI/Abdominal Exam GI & Abdominal Exam: Normal Bowel Sounds - Rectal Exam Rectal Exam: NORMAL INSPECTION - Exam Exam: NORMAL INSPECTION - Extremities Exam Extremities Exam: Normal Inspection - Back Exam Back Exam: NORMAL INSPECTION - Neurological Exam Neurological Exam: Normal Gait, Oriented x3 - Psychiatric Exam Psychiatric exam: Normal Affect - Skin Skin Exam: Warm Assessment and Plan - Assessment and Plan (Free Text) Assessment: s/p resp depresion s/p alc withdrawal bilat pnumonia improving cont antibiotic as per id will discuss plan for d/c my be tomoro
--- NOTE | 2016-08-19 13:50 | PN ---
DATE: 08/19/2016 SUBJECTIVE: The patient is seen. The patient is completing detox with no problems. Clinically, he is improving. He is not coughing or having shortness of breath. When asked about an aftercare for his alcohol problem, he states he does not need it. Psych-huizar, he can be discharged and can be referred to AA if he wants. He does not want any outpatient or any inpatient aftercare for his substance abuse. VITAL SIGNS: Temperature is 98.6, pulse rate is 85, blood pressure is 120/75, respirations 20, oxygen sat is 96%. REVIEW OF SYSTEMS: GENERAL: The patient is alert, oriented x 3, seen in his room, eating his lunch , clinically improved. SKIN: No diaphoresis. HEENT: No headache, no dizziness. NECK: Supple. RESPIRATORY: No dyspnea. CARDIOVASCULAR: No chest pain. GASTROINTESTINAL: He is eating well. EXTREMITIES: No tremors. MUSCULOSKELETAL: Weakness improving. NEUROLOGIC: Alert, oriented x 3. MENTAL STATUS EXAMINATION: Elderly male who looks stated age, in hospital gown , status post Librium detox. Oriented x 3. Speech spontaneous. Affect is reactive. Mood is calm. Thought process coherent. Thought content: No psychosis. No suicidal or homicidal ideation. The patient states that he does not want any aftercare for his substance abuse. He said he will be going to a friend's house. Attention and memory seems to be fair. Insight and judgment fair. Impulse control is fair. IMPRESSION: Alcohol intoxication, alcohol withdrawal, alcohol dependence, history of aspiration pneumonia, improving. PLAN AND RECOMMENDATIONS: The patient seen, meds reviewed. The patient can be discharged once medically cleared by Dr. Suarez. Psych huizar, patient is not interested to go for any aftercare at this time. I do suggest if patient wants AA, he can go, but motivation to stay sober is highly questionable at this time. Dannie Gaffney MD cc: [phone] TT: 08/19/2016 13:49:56 Confirmation # [id number] Dictation # [id number] [id number]
--- NOTE | 2016-08-19 16:48 | CP.PCM.PN ---
Objective - Vital Signs/Intake and Output Vital Signs (last 24 hours): Temp Pulse Resp BP Pulse Ox 98.6 F 85 20 120/75 96 08/19/16 08:38 08/19/16 08:38 08/19/16 08:38 08/19/16 08:38 08/19/16 08:38 Intake and Output: 08/19/16 08/19/16 06:59 18:59 Intake Total 700 Balance 700 - Medications Medications: Current Medications Acetaminophen (Tylenol 325mg Tab) 650 mg PO Q6 PRN PRN Reason: Fever >100.4 F Last Admin: 08/16/16 20:50 Dose: 650 mg Chlordiazepoxide (Librium) 50 mg PO Q12 KRISTY PRN Reason: Taper Stop: 08/21/16 18:59 Last Admin: 08/19/16 11:00 Dose: 50 mg Chlordiazepoxide (Librium) 50 mg PO Q4H PRN PRN Reason: Anxiety Vancomycin/Sodium Chloride (Vancocin) 200 mls @ 133.333 mls/hr IVPB Q12H [facility] Last Admin: 08/19/16 15:41 Dose: 133.333 mls/hr Azithromycin 500 mg/ Sodium (Chloride) 250 mls @ 250 mls/hr IVPB Q24H [facility] Last Admin: 08/18/16 17:42 Dose: 250 mls/hr Cefepime HCl 1 gm/ Sodium (Chloride) 100 mls @ 100 mls/hr IVPB Q8H [facility] Last Admin: 08/19/16 15:00 Dose: 100 mls/hr Multivitamins (Hexavitamin) 1 tab PO DAILY [facility] Last Admin: 08/19/16 11:00 Dose: 1 tab Pantoprazole Sodium (Protonix Inj) 40 mg IVP DAILY [facility] Last Admin: 08/19/16 11:00 Dose: 40 mg Thiamine HCl (Vitamin B1 Tab) 100 mg PO BID [facility] Last Admin: 08/19/16 11:00 Dose: 100 mg - Labs Labs: 08/15/16 06:30 08/18/16 08:06 PT 11.8 SECONDS (9.7-12.2) 08/13/16 09:09 INR 1.1 08/13/16 09:09 APTT 34 SECONDS (21-34) 08/13/16 09:09 Assessment and Plan (1) Pneumonia Status: Acute (2) Alcohol intoxication Status: Acute
[2016-08-19] MEDS: Azithromycin 500 MG in Sodium Chloride 0.9% 250 ML IVPB SCH (17:51)
[2016-08-20] MEDS: Vancomycin 1 gm/NS 200 ml 200 ML IVPB SCH ×2 (02:12→15:03)
[2016-08-20] MEDS: Cefepime 1 GM in Sodium Chloride 0.9% 100 ML IVPB SCH ×3 (05:32→22:45)
[2016-08-20] MEDS: Multiple Vitamins Tab PO SCH (10:59)
--- NOTE | 2016-08-20 13:10 | CP.PCM.PN ---
Subjective - Date & Time of Evaluation Date of Evaluation: 08/20/16 Time of Evaluation: 11:15 - Subjective Subjective: Patient seen and examined at bedside. Denies current shortness of breath, cough, chest pain, and palpitations. Alert and feeling improved; understands he is in the hospital for monitoring. Complaining of slight cough occasionally but not presently. Afebrile Objective - Vital Signs/Intake and Output Vital Signs (last 24 hours): Temp Pulse Resp BP Pulse Ox 97.8 F 80 20 122/74 97 08/20/16 07:50 08/20/16 07:50 08/20/16 07:50 08/20/16 07:50 08/20/16 07:50 - Medications Medications: Current Medications Acetaminophen (Tylenol 325mg Tab) 650 mg PO Q6 PRN PRN Reason: Fever >100.4 F Last Admin: 08/16/16 20:50 Dose: 650 mg Chlordiazepoxide (Librium) 50 mg PO QD7 KRISTY PRN Reason: Taper Stop: 08/21/16 18:59 Last Admin: 08/19/16 11:00 Dose: 50 mg Chlordiazepoxide (Librium) 50 mg PO Q4H PRN PRN Reason: Anxiety Vancomycin/Sodium Chloride (Vancocin) 200 mls @ 133.333 mls/hr IVPB Q12H [facility] Last Admin: 08/20/16 02:12 Dose: 133.333 mls/hr Azithromycin 500 mg/ Sodium (Chloride) 250 mls @ 250 mls/hr IVPB Q24H [facility] Last Admin: 08/19/16 17:51 Dose: 250 mls/hr Cefepime HCl 1 gm/ Sodium (Chloride) 100 mls @ 100 mls/hr IVPB Q8H [facility] Last Admin: 08/20/16 05:32 Dose: 100 mls/hr Multivitamins (Hexavitamin) 1 tab PO DAILY [facility] Last Admin: 08/20/16 10:59 Dose: 1 tab Pantoprazole Sodium (Protonix Inj) 40 mg IVP DAILY [facility] Last Admin: 08/20/16 10:59 Dose: 40 mg Thiamine HCl (Vitamin B1 Tab) 100 mg PO BID [facility] Last Admin: 08/20/16 10:59 Dose: 100 mg - Labs Labs: 08/15/16 06:30 08/18/16 08:06 PT 11.8 SECONDS (9.7-12.2) 08/13/16 09:09 INR 1.1 08/13/16 09:09 APTT 34 SECONDS (21-34) 08/13/16 09:09 - Constitutional Appears: Well, Non-toxic, No Acute Distress - Head Exam Head Exam: ATRAUMATIC, NORMOCEPHALIC - Respiratory Exam Respiratory Exam: Clear to Ausculation Bilateral, NORMAL BREATHING PATTERN. absent: Accessory Muscle Use, Prolonged Expiratory Phase, Rales, Rhonchi, Wheezes, Respiratory Distress, Stridor - Cardiovascular Exam Cardiovascular Exam: +S1, +S2. absent: Irregular Rhythm, Murmur - Psychiatric Exam Psychiatric exam: Normal Affect, Normal Mood - Skin Skin Exam: Dry, Intact, Normal Color, Warm Assessment and Plan (1) Pneumonia Assessment & Plan: Chest x-ray 08/17/2016 hazy opacity throughout both lung ricks, particularly in the lower lung zones, remained unchanged repeat chest x-ray continue antibiotics to complete course and/or confirmed resolution of objective exam findings monitor for shortness of breath, dyspnea, productive cough, and fever thiamine and librium taper Status: Acute (2) Alcohol intoxication Status: Acute
--- NOTE | 2016-08-20 14:25 | PN ---
DATE: 08/20/2016 SUBJECTIVE: The patient is seen. The patient is improving clinically, but not medically cleared. T he patient is still receiving antibiotics for his aspiration pneumonia. The patient is getting jovanny r. No signs and symptoms of withdrawal. VITAL SIGNS: Temperature is 97.8, pulse 80, blood pressure 122/74, respirations 20, oxygen saturatio n is 97. The patient is on off standing Librium detox at this time. However, patient is still on Librium p.r. n. and also took Librium 50 mg daily today. The patient to continue Librium for 2 more days. REVIEW OF SYSTEMS: GENERAL: Alert, oriented x 3. Still feeling weak. He is in his room. He said he is willing to sta y in the hospital for antibiotic treatment. SKIN: No diaphoresis. HEENT: No headache, no dizziness. NECK: Supple. RESPIRATORY: Still has mild cough. No dyspnea. CARDIOVASCULAR: No chest pain. GASTROINTESTINAL: Appetite is improving. EXTREMITIES: Gait still feels weak. No tremors. MUSCULOSKELETAL: Feels weak. NEUROLOGIC: Alert, oriented x 3. MENTAL STATUS EXAMINATION: Elderly male who looks stated age. Alert, oriented x 3. Mood is calm. Affect is reactive. Speech spontaneous. Thought process coherent. Thought content: No psychosis. No suicidal or homicidal ideation. Attention and memory seems to be fair. Insight and judgment weir ited. Impulse control is fair at this time. IMPRESSION: History of alcohol intoxication, alcohol dependence, alcohol withdrawal, aspiration pneu monia. PLAN AND RECOMMENDATIONS: The patient seen, meds reviewed. Continue present management. The patien t is to continue antibiotics as ordered. Once patient is medically cleared, we will try to refer him to AA. The patient does not want still any kind of aftercare for his substance abuse problem, stati ng that he is "not an alcoholic." Dannie Gaffney MD cc: [phone] TT: 08/20/2016 14:24:44 Confirmation # [id number] Dictation # [id number] mn
--- NOTE | 2016-08-20 16:21 | RAD ---
PROCEDURE: Chest two views HISTORY: f/u on pneumonia COMPARISON: 08/17/2016 TECHNIQUE: Conventional PA and lateral views. FINDINGS: Increasing right upper lobe infiltrate. Improving right lower lobe infiltrate. Stable perihilar left lower lobe infiltrate. IMPRESSION: Multiple bilateral infiltrates. Please see report for details.
[2016-08-20] MEDS: Azithromycin 500 MG in Sodium Chloride 0.9% 250 ML IVPB SCH (18:18)
--- NOTE | 2016-08-20 20:06 | CP.PCM.PN ---
Subjective - Date & Time of Evaluation Date of Evaluation: 08/20/16 Time of Evaluation: 20:06 - Subjective Subjective: AFEBRILE. C/O COUGH. CLINICALLY LOOKS IMPROVED ESR 127 CRP>15 CREATININE 1.0/ bun 11 Objective - Vital Signs/Intake and Output Vital Signs (last 24 hours): Temp Pulse Resp BP Pulse Ox 98.1 F 80 20 123/75 97 08/20/16 15:15 08/20/16 16:59 08/20/16 15:15 08/20/16 15:15 08/20/16 15:15 - Medications Medications: Current Medications Acetaminophen (Tylenol 325mg Tab) 650 mg PO Q6 PRN PRN Reason: Fever >100.4 F Last Admin: 08/16/16 20:50 Dose: 650 mg Chlordiazepoxide (Librium) 50 mg PO QD7 [facility] PRN Reason: Taper Stop: 08/21/16 18:59 Last Admin: 08/19/16 11:00 Dose: 50 mg Chlordiazepoxide (Librium) 50 mg PO Q4H PRN PRN Reason: Anxiety Vancomycin/Sodium Chloride (Vancocin) 200 mls @ 133.333 mls/hr IVPB Q12H [facility] Last Admin: 08/20/16 15:03 Dose: 133.333 mls/hr Azithromycin 500 mg/ Sodium (Chloride) 250 mls @ 250 mls/hr IVPB Q24H [facility] Last Admin: 08/20/16 18:18 Dose: 250 mls/hr Cefepime HCl 1 gm/ Sodium (Chloride) 100 mls @ 100 mls/hr IVPB Q8H [facility] Last Admin: 08/20/16 13:24 Dose: 100 mls/hr Multivitamins (Hexavitamin) 1 tab PO DAILY [facility] Last Admin: 08/20/16 10:59 Dose: 1 tab Pantoprazole Sodium (Protonix Inj) 40 mg IVP DAILY [facility] Last Admin: 08/20/16 10:59 Dose: 40 mg Thiamine HCl (Vitamin B1 Tab) 100 mg PO BID [facility] Last Admin: 08/20/16 18:17 Dose: 100 mg - Labs Labs: 08/15/16 06:30 08/18/16 08:06 PT 11.8 SECONDS (9.7-12.2) 08/13/16 09:09 INR 1.1 08/13/16 09:09 APTT 34 SECONDS (21-34) 08/13/16 09:09 - Constitutional Appears: No Acute Distress - Head Exam Head Exam: NORMAL INSPECTION - Eye Exam Eye Exam: EOMI, PERRL - ENT Exam ENT Exam: Mucous Membranes Moist - Neck Exam Neck Exam: Normal Inspection - Respiratory Exam Respiratory Exam: Rhonchi (BILATERAL RHONCHI RIGHT SIDE MORE THAN LEFT.) - Cardiovascular Exam Cardiovascular Exam: REGULAR RHYTHM, +S1, +S2 - GI/Abdominal Exam GI & Abdominal Exam: Soft, Normal Bowel Sounds. absent: Tenderness - Extremities Exam Extremities Exam: absent: Calf Tenderness, Pedal Edema - Neurological Exam Neurological Exam: Awake, CN II-XII Intact, Normal Gait, Oriented x3, Reflexes Normal - Skin Skin Exam: Normal Color, Warm Assessment and Plan - Assessment and Plan (Free Text) Assessment: IMPRESSION; -NEW FEVER SOURCE MOST LIKELY BILATERAL PNEUMONIA. ? CAP VS ATYPICAL. -ALCOHOL ABUSE/ALCOHOL INTOXICATION. - HX HTN. PLAN; 5TU PPD.-P QUANTIFERON GOLD TB TEST-P HIV 1 AND 2 ANTIBODY FOURTH-GENERATION TEST -VE. ON iv mAXIPIME 1 G EVERY 8 HOURLY 08/17/16. ON iv ZITHROMAX 500 MG DAILY DAILY 08/17/16 CONTINUE iv VANCOMYCIN 1 G EVERY 12 JACKIE FOLLOW-UP CHEST X-RAY 08/20/16.
[2016-08-21] MEDS: Vancomycin 1 gm/NS 200 ml 200 ML IVPB SCH ×2 (01:30→13:33)
[2016-08-21] MEDS: Cefepime 1 GM in Sodium Chloride 0.9% 100 ML IVPB SCH ×3 (05:25→20:59)
[2016-08-21 07:50] LABS: CHLORIDE 107 mmol/L (98-107); POTASSIUM 3.9 mmol/L (3.6-5.2); SODIUM 144 mmol/L (132-148)
[2016-08-21 07:52] LABS: GFR AFRICAN-AMERICAN > 60
[2016-08-21 07:53] LABS: ALKALINE PHOSPHATASE 35 U/L (38-126); ALT/SGPT 41 U/L (21-72); AST/SGOT 34 U/L (17-59); BILIRUBIN,DIRECT 0.2 mg/dL (0.0-0.4); BILIRUBIN,TOTAL 0.2 mg/dL (0.2-1.3); BLOOD UREA NITROGEN 12 mg/dL (9-20); CALCIUM 8.6 mg/dl (8.6-10.4); CARBON DIOXIDE 23 mmol/L (22-30); GLUCOSE,RANDOM 94 mg/dL (75-110); TOTAL PROTEIN 6.4 g/dL (6.3-8.3)
[2016-08-21 07:54] LABS: BASO % 0.8 % (0.0-2.0); EOS # 0.2 K/uL (0.0-0.7); EOS % 4.4 % (0.0-4.0); HEMATOCRIT 33.2 % (35.0-51.0); LYMPH # 1.7 K/uL (1.0-4.3); LYMPH % 32.5 % (20.0-40.0); MEAN CORPUSCULAR HGB CONC 33.3 g/dL (33.0-37.0); MEAN PLATELET VOLUME 7.9 fL (7.2-11.7); MONO # 0.6 K/uL (0.0-0.8); MONO % 11.6 % (0.0-10.0); RED CELL DISTRIBUTION WIDTH 12.8 % (11.5-14.5); WHITE BLOOD COUNT 5.2 K/uL (4.8-10.8)
[2016-08-21] MEDS: Multiple Vitamins Tab PO SCH (09:49)
--- NOTE | 2016-08-21 10:44 | CP.PCM.PN ---
Subjective - Date & Time of Evaluation Date of Evaluation: 08/21/16 Time of Evaluation: 10:42 - Subjective Subjective: worsening pnumonia Objective - Vital Signs/Intake and Output Vital Signs (last 24 hours): Temp Pulse Resp BP Pulse Ox 97.5 F L 68 20 107/71 97 08/21/16 07:19 08/21/16 08:30 08/21/16 07:19 08/21/16 07:19 08/21/16 07:19 Intake and Output: 08/21/16 08/21/16 06:59 18:59 Intake Total 300 Balance 300 - Medications Medications: Current Medications Acetaminophen (Tylenol 325mg Tab) 650 mg PO Q6 PRN PRN Reason: Fever >100.4 F Last Admin: 08/16/16 20:50 Dose: 650 mg Chlordiazepoxide (Librium) 50 mg PO QD7 [facility] PRN Reason: Taper Stop: 08/21/16 18:59 Last Admin: 08/19/16 11:00 Dose: 50 mg Chlordiazepoxide (Librium) 50 mg PO Q4H PRN PRN Reason: Anxiety Furosemide (Lasix) 40 mg IVP STAT STA Stop: 08/21/16 10:41 Vancomycin/Sodium Chloride (Vancocin) 200 mls @ 133.333 mls/hr IVPB Q12H [facility] Last Admin: 08/21/16 01:30 Dose: 133.333 mls/hr Azithromycin 500 mg/ Sodium (Chloride) 250 mls @ 250 mls/hr IVPB Q24H [facility] Last Admin: 08/20/16 18:18 Dose: 250 mls/hr Cefepime HCl 1 gm/ Sodium (Chloride) 100 mls @ 100 mls/hr IVPB Q8H [facility] Last Admin: 08/21/16 05:25 Dose: 100 mls/hr Multivitamins (Hexavitamin) 1 tab PO DAILY [facility] Last Admin: 08/21/16 09:49 Dose: 1 tab Pantoprazole Sodium (Protonix Inj) 40 mg IVP DAILY [facility] Last Admin: 08/21/16 09:50 Dose: 40 mg Thiamine HCl (Vitamin B1 Tab) 100 mg PO BID [facility] Last Admin: 08/21/16 09:49 Dose: 100 mg - Labs Labs: 08/21/16 06:56 08/21/16 06:56 PT 11.8 SECONDS (9.7-12.2) 08/13/16 09:09 INR 1.1 08/13/16 09:09 APTT 34 SECONDS (21-34) 08/13/16 09:09 - Constitutional Appears: Non-toxic - Head Exam Head Exam: NORMAL INSPECTION - Eye Exam Eye Exam: Normal appearance Pupil Exam: NORMAL ACCOMODATION - ENT Exam ENT Exam: Mucous Membranes Moist - Neck Exam Neck Exam: Full ROM - Respiratory Exam Respiratory Exam: Decreased Breath Sounds, Clear to Ausculation Bilateral - Cardiovascular Exam Cardiovascular Exam: REGULAR RHYTHM - GI/Abdominal Exam GI & Abdominal Exam: Normal Bowel Sounds - Extremities Exam Extremities Exam: Normal Inspection - Back Exam Back Exam: Full ROM - Neurological Exam Neurological Exam: Oriented x3 - Psychiatric Exam Psychiatric exam: Normal Affect - Skin Skin Exam: Normal Color Assessment and Plan - Assessment and Plan (Free Text) Assessment: pnumonia worse s/p alc intoxication Plan: cont as per orders
--- NOTE | 2016-08-21 11:59 | CP.PCM.PN ---
Subjective - Date & Time of Evaluation Date of Evaluation: 08/21/16 Time of Evaluation: 11:05 - Subjective Subjective: Pt seen and examined at bedside. Denied SOB, chest pain, palpitations, and lightheadedness. Complains of continued productive cough with phlegm; yellow color. Objective - Vital Signs/Intake and Output Vital Signs (last 24 hours): Temp Pulse Resp BP Pulse Ox 97.5 F L 68 20 115/60 97 08/21/16 07:19 08/21/16 08:30 08/21/16 07:19 08/21/16 11:36 08/21/16 07:19 Intake and Output: 08/21/16 08/21/16 06:59 18:59 Intake Total 300 Balance 300 - Medications Medications: Current Medications Acetaminophen (Tylenol 325mg Tab) 650 mg PO Q6 PRN PRN Reason: Fever >100.4 F Last Admin: 08/16/16 20:50 Dose: 650 mg Chlordiazepoxide (Librium) 50 mg PO QD7 [facility] PRN Reason: Taper Stop: 08/21/16 18:59 Last Admin: 08/19/16 11:00 Dose: 50 mg Chlordiazepoxide (Librium) 50 mg PO Q4H PRN PRN Reason: Anxiety Vancomycin/Sodium Chloride (Vancocin) 200 mls @ 133.333 mls/hr IVPB Q12H [facility] Last Admin: 08/21/16 01:30 Dose: 133.333 mls/hr Azithromycin 500 mg/ Sodium (Chloride) 250 mls @ 250 mls/hr IVPB Q24H [facility] Last Admin: 08/20/16 18:18 Dose: 250 mls/hr Cefepime HCl 1 gm/ Sodium (Chloride) 100 mls @ 100 mls/hr IVPB Q8H [facility] Last Admin: 08/21/16 05:25 Dose: 100 mls/hr Multivitamins (Hexavitamin) 1 tab PO DAILY [facility] Last Admin: 08/21/16 09:49 Dose: 1 tab Pantoprazole Sodium (Protonix Inj) 40 mg IVP DAILY [facility] Last Admin: 08/21/16 09:50 Dose: 40 mg Thiamine HCl (Vitamin B1 Tab) 100 mg PO BID [facility] Last Admin: 08/21/16 09:49 Dose: 100 mg - Labs Labs: 08/21/16 06:56 08/21/16 06:56 PT 11.8 SECONDS (9.7-12.2) 08/13/16 09:09 INR 1.1 08/13/16 09:09 APTT 34 SECONDS (21-34) 08/13/16 09:09 - Constitutional Appears: Well, Non-toxic - Head Exam Head Exam: ATRAUMATIC, NORMOCEPHALIC - Respiratory Exam Respiratory Exam: NORMAL BREATHING PATTERN. absent: Accessory Muscle Use, Clear to Ausculation Bilateral (bilateral congestion), Prolonged Expiratory Phase, Wheezes, Respiratory Distress - Cardiovascular Exam Cardiovascular Exam: +S1, +S2. absent: Murmur - Psychiatric Exam Psychiatric exam: Normal Affect, Normal Mood - Skin Skin Exam: Dry, Intact, Normal Color, Warm Assessment and Plan (1) Pneumonia Assessment & Plan: CXR 08/20/16: multiple bilateral infiltrates, increased R upper lobe, decreased R lower lobe, and stable L lower lobe enriqueta-hyilar Repeat Chest CT Continue antibiotics Continue monitoring SOB, dyspnea, productive cough, and fever Status: Acute (2) Alcohol intoxication Status: Acute
--- NOTE | 2016-08-21 13:48 | CP.PCM.PN ---
Subjective - Date & Time of Evaluation Date of Evaluation: 08/21/16 Time of Evaluation: 13:48 - Subjective Subjective: AFEBRILE. C/O COUGH. SCANT EXPECTORATION. CLINICALLY LOOKS IMPROVED CXR 08/20/16 NOTED. INCREASING INFILTRATE RUL. MULTIFOCAL INFILTRATES LABS REVIEWED Objective - Vital Signs/Intake and Output Vital Signs (last 24 hours): Temp Pulse Resp BP Pulse Ox 97.5 F L 68 20 115/60 97 08/21/16 07:19 08/21/16 08:30 08/21/16 07:19 08/21/16 11:36 08/21/16 07:19 Intake and Output: 08/21/16 08/21/16 06:59 18:59 Intake Total 300 Balance 300 - Medications Medications: Current Medications Acetaminophen (Tylenol 325mg Tab) 650 mg PO Q6 PRN PRN Reason: Fever >100.4 F Last Admin: 08/16/16 20:50 Dose: 650 mg Chlordiazepoxide (Librium) 50 mg PO QD7 [facility] PRN Reason: Taper Stop: 08/21/16 18:59 Last Admin: 08/19/16 11:00 Dose: 50 mg Chlordiazepoxide (Librium) 50 mg PO Q4H PRN PRN Reason: Anxiety Vancomycin/Sodium Chloride (Vancocin) 200 mls @ 133.333 mls/hr IVPB Q12H [facility] Last Admin: 08/21/16 13:33 Dose: 133.333 mls/hr Azithromycin 500 mg/ Sodium (Chloride) 250 mls @ 250 mls/hr IVPB Q24H [facility] Last Admin: 08/20/16 18:18 Dose: 250 mls/hr Cefepime HCl 1 gm/ Sodium (Chloride) 100 mls @ 100 mls/hr IVPB Q8H [facility] Last Admin: 08/21/16 13:34 Dose: 100 mls/hr Multivitamins (Hexavitamin) 1 tab PO DAILY [facility] Last Admin: 08/21/16 09:49 Dose: 1 tab Pantoprazole Sodium (Protonix Inj) 40 mg IVP DAILY [facility] Last Admin: 08/21/16 09:50 Dose: 40 mg Thiamine HCl (Vitamin B1 Tab) 100 mg PO BID [facility] Last Admin: 08/21/16 09:49 Dose: 100 mg - Labs Labs: 08/21/16 06:56 08/21/16 06:56 PT 11.8 SECONDS (9.7-12.2) 08/13/16 09:09 INR 1.1 08/13/16 09:09 APTT 34 SECONDS (21-34) 08/13/16 09:09 - Head Exam Head Exam: NORMAL INSPECTION - Eye Exam Eye Exam: EOMI, PERRL - ENT Exam ENT Exam: Mucous Membranes Moist - Neck Exam Neck Exam: Normal Inspection - Respiratory Exam Respiratory Exam: Rhonchi (BILATERALLY.) - Cardiovascular Exam Cardiovascular Exam: REGULAR RHYTHM, +S1, +S2 - GI/Abdominal Exam GI & Abdominal Exam: Soft, Normal Bowel Sounds - Extremities Exam Extremities Exam: absent: Calf Tenderness, Pedal Edema - Neurological Exam Neurological Exam: Awake, CN II-XII Intact, Normal Gait, Oriented x3 - Skin Skin Exam: Normal Color, Warm Assessment and Plan - Assessment and Plan (Free Text) Assessment: IMPRESSION; -NEW FEVER SOURCE MOST LIKELY BILATERAL PNEUMONIA. ? CAP VS ATYPICAL. -ALCOHOL ABUSE/ALCOHOL INTOXICATION. - HX HTN. PLAN; 5TU PPD.-P QUANTIFERON GOLD TB TEST-P HIV 1 AND 2 ANTIBODY FOURTH-GENERATION TEST -VE. ON iv mAXIPIME 1 G EVERY 8 HOURLY 08/17/16. ON iv ZITHROMAX 500 MG DAILY DAILY 08/17/16 CONTINUE iv VANCOMYCIN 1 G EVERY 12 HOURLY. F/U QFT -TB TEST. SPUTUM [employer] SMEAR/CULTURE. WILL DISCUSS WITH PULMONARY
[2016-08-21] MEDS: Azithromycin 500 MG in Sodium Chloride 0.9% 250 ML IVPB SCH (16:42)
--- NOTE | 2016-08-21 18:58 | CT ---
PROCEDURE: CT Chest without contrast HISTORY: F/U ON PNEUMONIA COMPARISON: None. TECHNIQUE: Contiguous axial images were obtained through the chest without intravenous contrast enhancement. Sagittal and coronal reconstructions were performed. Radiation dose (DLP): 497.58 mGy-cm. FINDINGS: LUNGS: Marked improvement in the extent of opacity in both lower lobes as well as posterior segment right upper lobe. Likely resolving pneumonia. No new consolidation. MEDIASTINUM: Unremarkable thoracic aorta. No aneurysm. Normal sized heart. Main pulmonary artery unremarkable. No vascular congestion. No lymphadenopathy. PLEURA: No pleural fluid. No pneumothorax. BONES: No fracture. No destructive lesion. UPPER ABDOMEN: Grossly unremarkable. OTHER FINDINGS: None. IMPRESSION: Resolving multi lobar infiltrates.
[2016-08-22] MEDS: Vancomycin 1 gm/NS 200 ml 200 ML IVPB SCH ×2 (03:01→13:56)
[2016-08-22] MEDS: Cefepime 1 GM in Sodium Chloride 0.9% 100 ML IVPB SCH ×2 (05:04→13:53)
--- NOTE | 2016-08-22 09:54 | CP.PCM.PN ---
Subjective - Date & Time of Evaluation Date of Evaluation: 08/22/16 Time of Evaluation: 10:20 - Subjective Subjective: Pt was seen and examined this morning at bedside, no acute distress and no acute events overnight. The patient was recently placed in isolation by ID due to an indeterminate high result on quant gold test was performed. Pt reports to be feeling well today and only complains of occasional coughing. Patient currently denies n/v/f/c, headache, chest pain, palpitations, dysnea. Objective - Vital Signs/Intake and Output Vital Signs (last 24 hours): Temp Pulse Resp BP Pulse Ox 97.4 F L 69 20 124/77 95 08/22/16 08:07 08/22/16 08:07 08/22/16 08:07 08/22/16 08:07 08/22/16 08:07 - Medications Medications: Current Medications Acetaminophen (Tylenol 325mg Tab) 650 mg PO Q6 PRN PRN Reason: Fever >100.4 F Last Admin: 08/16/16 20:50 Dose: 650 mg Chlordiazepoxide (Librium) 50 mg PO Q4H PRN PRN Reason: Anxiety Vancomycin/Sodium Chloride (Vancocin) 200 mls @ 133.333 mls/hr IVPB Q12H [facility] Last Admin: 08/22/16 03:01 Dose: 133.333 mls/hr Azithromycin 500 mg/ Sodium (Chloride) 250 mls @ 250 mls/hr IVPB Q24H [facility] Last Admin: 08/21/16 16:42 Dose: 250 mls/hr Cefepime HCl 1 gm/ Sodium (Chloride) 100 mls @ 100 mls/hr IVPB Q8H [facility] Last Admin: 08/22/16 05:04 Dose: 100 mls/hr Multivitamins (Hexavitamin) 1 tab PO DAILY [facility] Last Admin: 08/21/16 09:49 Dose: 1 tab Pantoprazole Sodium (Protonix Inj) 40 mg IVP DAILY [facility] Last Admin: 08/21/16 09:50 Dose: 40 mg Thiamine HCl (Vitamin B1 Tab) 100 mg PO BID [facility] Last Admin: 08/21/16 18:35 Dose: 100 mg - Labs Labs: 08/21/16 06:56 08/21/16 06:56 PT 11.8 SECONDS (9.7-12.2) 08/13/16 09:09 INR 1.1 08/13/16 09:09 APTT 34 SECONDS (21-34) 08/13/16 09:09 - Constitutional Appears: Well, Non-toxic, No Acute Distress - Head Exam Head Exam: ATRAUMATIC, NORMAL INSPECTION - Eye Exam Eye Exam: Normal appearance - ENT Exam ENT Exam: Normal Exam - Respiratory Exam Respiratory Exam: NORMAL BREATHING PATTERN - Cardiovascular Exam Cardiovascular Exam: +S1, +S2 - Extremities Exam Extremities Exam: Normal Inspection. absent: Pedal Edema - Neurological Exam Neurological Exam: Alert, Awake, Oriented x3 - Skin Skin Exam: Dry, Normal Color, Warm Assessment and Plan (1) Pneumonia Assessment & Plan: -Repeat CT 08/21/2016 chest showed resolving multilobar infiltrates bilaterally -continue current Abx -Pt to remain isolation as per ID due to indeterminate quant gold result -clinically patient improving, Sputum AFB 3 -Continue monitoring SOB, dyspnea, productive cough, and fever Status: Acute (2) Alcohol intoxication Status: Acute
[2016-08-22] MEDS: Multiple Vitamins Tab PO SCH (10:50)
--- NOTE | 2016-08-22 12:40 | CP.PCM.PN ---
Subjective - Date & Time of Evaluation Date of Evaluation: 08/22/16 Time of Evaluation: 12:37 - Subjective Subjective: COVERAGE FOR JAIME Denies shortness of breath Objective - Vital Signs/Intake and Output Vital Signs (last 24 hours): Temp Pulse Resp BP Pulse Ox 97.4 F L 69 20 124/77 95 08/22/16 08:07 08/22/16 08:07 08/22/16 08:07 08/22/16 08:07 08/22/16 08:07 - Medications Medications: Current Medications Acetaminophen (Tylenol 325mg Tab) 650 mg PO Q6 PRN PRN Reason: Fever >100.4 F Last Admin: 08/16/16 20:50 Dose: 650 mg Chlordiazepoxide (Librium) 50 mg PO Q4H PRN PRN Reason: Anxiety Vancomycin/Sodium Chloride (Vancocin) 200 mls @ 133.333 mls/hr IVPB Q12H [facility] Last Admin: 08/22/16 03:01 Dose: 133.333 mls/hr Azithromycin 500 mg/ Sodium (Chloride) 250 mls @ 250 mls/hr IVPB Q24H [facility] Last Admin: 08/21/16 16:42 Dose: 250 mls/hr Cefepime HCl 1 gm/ Sodium (Chloride) 100 mls @ 100 mls/hr IVPB Q8H [facility] Last Admin: 08/22/16 05:04 Dose: 100 mls/hr Multivitamins (Hexavitamin) 1 tab PO DAILY [facility] Last Admin: 08/22/16 10:50 Dose: 1 tab Pantoprazole Sodium (Protonix Inj) 40 mg IVP DAILY [facility] Last Admin: 08/22/16 10:50 Dose: 40 mg Thiamine HCl (Vitamin B1 Tab) 100 mg PO BID [facility] Last Admin: 08/22/16 10:50 Dose: 100 mg - Labs Labs: 08/21/16 06:56 08/21/16 06:56 PT 11.8 SECONDS (9.7-12.2) 08/13/16 09:09 INR 1.1 08/13/16 09:09 APTT 34 SECONDS (21-34) 08/13/16 09:09 - Constitutional Appears: Well, Non-toxic - Eye Exam Eye Exam: PERRL, Scleral icterus - Respiratory Exam Respiratory Exam: Clear to Ausculation Bilateral, NORMAL BREATHING PATTERN - Cardiovascular Exam Cardiovascular Exam: REGULAR RHYTHM, RRR, +S1, +S2. absent: JVD - GI/Abdominal Exam GI & Abdominal Exam: Normal Bowel Sounds. absent: Organomegaly Assessment and Plan - Assessment and Plan (Free Text) Assessment: 2D echo images viewed by myself shows normal LV systolic function; stage I diastolic dysfunction with normal left atrial pressure 60 year old man with suspected TB PNA - continue respirtory isolation, abx when confirmatory tests are completed Chronic diastolic CHF follow blood pressure may need antihypertensive in the future ETOH abuse - withdrawal symptoms controlled with benozos
[2016-08-22] MEDS: Azithromycin 500 MG in Sodium Chloride 0.9% 250 ML IVPB SCH (17:58)
--- NOTE | 2016-08-22 18:04 | CP.PCM.PN ---
Subjective - Date & Time of Evaluation Date of Evaluation: 08/22/16 Time of Evaluation: 18:02 - Subjective Subjective: no new c/o Objective - Vital Signs/Intake and Output Vital Signs (last 24 hours): Temp Pulse Resp BP Pulse Ox 97.8 F 72 20 121/81 100 08/22/16 16:00 08/22/16 16:28 08/22/16 16:00 08/22/16 16:00 08/22/16 16:00 Intake and Output: 08/22/16 08/22/16 06:59 18:59 Intake Total 800 Balance 800 - Medications Medications: Current Medications Acetaminophen (Tylenol 325mg Tab) 650 mg PO Q6 PRN PRN Reason: Fever >100.4 F Last Admin: 08/16/16 20:50 Dose: 650 mg Chlordiazepoxide (Librium) 50 mg PO Q4H PRN PRN Reason: Anxiety Vancomycin/Sodium Chloride (Vancocin) 200 mls @ 133.333 mls/hr IVPB Q12H [facility] Last Admin: 08/22/16 13:56 Dose: 133.333 mls/hr Azithromycin 500 mg/ Sodium (Chloride) 250 mls @ 250 mls/hr IVPB Q24H [facility] Last Admin: 08/22/16 17:58 Dose: 250 mls/hr Cefepime HCl (Maxipime Iv 1 Gm Premix) 50 mls @ 100 mls/hr IVPB Q8 [facility] Multivitamins (Hexavitamin) 1 tab PO DAILY [facility] Last Admin: 08/22/16 10:50 Dose: 1 tab Pantoprazole Sodium (Protonix Inj) 40 mg IVP DAILY [facility] Last Admin: 08/22/16 10:50 Dose: 40 mg Thiamine HCl (Vitamin B1 Tab) 100 mg PO BID [facility] Last Admin: 08/22/16 17:58 Dose: 100 mg - Labs Labs: 08/21/16 06:56 08/21/16 06:56 PT 11.8 SECONDS (9.7-12.2) 08/13/16 09:09 INR 1.1 08/13/16 09:09 APTT 34 SECONDS (21-34) 08/13/16 09:09 - Constitutional Appears: Non-toxic - Head Exam Head Exam: NORMAL INSPECTION - Eye Exam Eye Exam: EOMI Pupil Exam: NORMAL ACCOMODATION - ENT Exam ENT Exam: Normal Exam - Neck Exam Neck Exam: Full ROM - Cardiovascular Exam Cardiovascular Exam: REGULAR RHYTHM - GI/Abdominal Exam GI & Abdominal Exam: Normal Bowel Sounds - Rectal Exam Rectal Exam: NORMAL INSPECTION - Exam Exam: NORMAL INSPECTION - Extremities Exam Extremities Exam: Normal Inspection - Back Exam Back Exam: NORMAL INSPECTION - Psychiatric Exam Psychiatric exam: Normal Mood - Skin Skin Exam: Normal Color Assessment and Plan - Assessment and Plan (Free Text) Assessment: ac pnumonia resolving will discuss with [place] for plan
--- NOTE | 2016-08-22 19:59 | CP.PCM.PN ---
Subjective - Date & Time of Evaluation Date of Evaluation: 08/22/16 Time of Evaluation: 19:59 - Subjective Subjective: afebrile, Complains of cough Scanty expectoration. Gold QuantiFERON TB test--> Indeterminate. Presently in isolation TO obtain sputum for AFB [address] chest without contrast 08/21/16 to evaluate for bilateral multifocal pneumonia CHEST X-RAY SHOWING WORSENING RIGHT UPPER LOBE INFILTRATE CT chest 08/21/16; report noted showing marked improvement multifocal infiltrates consistent with resolving pneumonia. No effusion No lymphadenopathy. Objective - Vital Signs/Intake and Output Vital Signs (last 24 hours): Temp Pulse Resp BP Pulse Ox 97.8 F 72 20 121/81 100 08/22/16 16:00 08/22/16 16:28 08/22/16 16:00 08/22/16 16:00 08/22/16 16:00 Intake and Output: 08/22/16 08/23/16 18:59 06:59 Intake Total 800 Balance 800 - Medications Medications: Current Medications Acetaminophen (Tylenol 325mg Tab) 650 mg PO Q6 PRN PRN Reason: Fever >100.4 F Last Admin: 08/16/16 20:50 Dose: 650 mg Vancomycin/Sodium Chloride (Vancocin) 200 mls @ 133.333 mls/hr IVPB Q12H [facility] Last Admin: 08/22/16 13:56 Dose: 133.333 mls/hr Azithromycin 500 mg/ Sodium (Chloride) 250 mls @ 250 mls/hr IVPB Q24H [facility] Last Admin: 08/22/16 17:58 Dose: 250 mls/hr Cefepime HCl (Maxipime Iv 1 Gm Premix) 50 mls @ 100 mls/hr IVPB Q8 [facility] Multivitamins (Hexavitamin) 1 tab PO DAILY [facility] Last Admin: 08/22/16 10:50 Dose: 1 tab Pantoprazole Sodium (Protonix Inj) 40 mg IVP DAILY [facility] Last Admin: 08/22/16 10:50 Dose: 40 mg Thiamine HCl (Vitamin B1 Tab) 100 mg PO BID [facility] Last Admin: 08/22/16 17:58 Dose: 100 mg - Labs Labs: 08/21/16 06:56 08/21/16 06:56 PT 11.8 SECONDS (9.7-12.2) 08/13/16 09:09 INR 1.1 08/13/16 09:09 APTT 34 SECONDS (21-34) 08/13/16 09:09 - Constitutional Appears: No Acute Distress - Head Exam Head Exam: NORMAL INSPECTION, NORMOCEPHALIC - Eye Exam Eye Exam: PERRL - ENT Exam ENT Exam: Mucous Membranes Moist - Neck Exam Neck Exam: Normal Inspection - Respiratory Exam Respiratory Exam: Rhonchi (few rhonchi bilaterally.), NORMAL BREATHING PATTERN - Cardiovascular Exam Cardiovascular Exam: REGULAR RHYTHM, +S1, +S2 - GI/Abdominal Exam GI & Abdominal Exam: Soft, Normal Bowel Sounds, Organomegaly (hepatomegaly.) - Extremities Exam Extremities Exam: Normal Capillary Refill. absent: Calf Tenderness, Full ROM - Psychiatric Exam Psychiatric exam: Normal Mood - Skin Skin Exam: Normal Color, Warm Assessment and Plan - Assessment and Plan (Free Text) Assessment: IMPRESSION; -NEW FEVER SOURCE MOST LIKELY BILATERAL PNEUMONIA. ? CAP VS ATYPICAL. -ALCOHOL ABUSE/ALCOHOL INTOXICATION. - HX HTN. LABS REVIEWED ESR-127 5TU PPD. -ve reported by RN. QUANTIFERON GOLD TB TEST- indeterminate. HIV 1 AND 2 ANTIBODY FOURTH-GENERATION TEST -VE. PLAN ON iv mAXIPIME 1 G EVERY 8 HOURLY 08/17/16-6 X 2 DAYS MORE ON iv ZITHROMAX 500 MG DAILY DAILY 08/17/16-6 DC CONTINUE iv VANCOMYCIN 1 G EVERY 12 HOURLY X 2 DAYS MORE respiratory isolation SPUTUM AFB SMEAR/CULTURE x3 If negative-mAY dc ISOLATION AFTER 2 DAYS MAY SWITCH TO BY MOUTH AUGMENTIN 875 TWICE A DAY X 5 DAYS. FOLLOW UP SERIAL CHEST X-RAY IN 3-6 MONTHS. WILL DISCUSS WITH PULMONARY
[2016-08-22] MEDS: Cefepime IV 1 gm in Dextrose 50 ML IVPB SCH (21:38)
[2016-08-23] MEDS: Vancomycin 1 gm/NS 200 ml 200 ML IVPB SCH ×2 (01:57→13:56)
[2016-08-23] MEDS: Cefepime IV 1 gm in Dextrose 50 ML IVPB SCH ×3 (05:26→21:05)
[2016-08-23] MEDS: Multiple Vitamins Tab PO SCH (10:58)
--- NOTE | 2016-08-23 16:44 | CARD ---
APPROVED REPORT EXAM: Two-dimensional and M-mode echocardiogram with Doppler and color Doppler. Other Information Quality : GoodRhythm : NSR INDICATION Congestive Heart Failure M-Mode DIMENSIONS RVDd1.66 (2.1-3.2cm)Left Atrium (MM)3.91 (2.5-4.0cm) IVSd1.33 (0.7-1.1cm)Aortic Root3.72 (2.2-3.7cm) LVDd4.87 (4.0-5.6cm)Aortic Cusp Exc.2.18 (1.5-2.0cm) PWd1.25 (0.7-1.1cm)FS (%) 35 % LVDs3.17 (2.0-3.8cm)LVEF (%)64 (>50%) Aortic Valve AoV Peak Kjjtkwmz625.5cm/Malcom Peak GR.9mmHg Mitral Valve MV E Nbzkveqw83.0cm/sMV A Ulsyaiqr09.5cm/sE/A ratio1.0 TDI E/Lateral E'0.0E/Medial E'0.0 Tricuspid Valve TR Peak Japipwtj072ls/sTR Peak Gr.[id number] LEFT VENTRICLE The left ventricle is normal size. There is moderate concentric left ventricular hypertrophy. The left ventricular function is normal. The left ventricular ejection fraction is within the normal range. The Ejection Fraction is >55%. No regional wall motion abnormalities noted. Tissue Doppler imaging reveals moderate left ventricular diastolic dysfunction. No left ventricle thrombus noted on this study. There is no ventricular septal defect visualized. There is no left ventricular aneurysm. There is no mass noted in the left ventricle. RIGHT VENTRICLE The right ventricle is normal size. There is normal right ventricular wall thickness. The right ventricular systolic function is normal. ATRIA The left atrium size is normal. The right atrium size is normal. The interatrial septum is intact with no evidence for an atrial septal defect. AORTIC VALVE The aortic valve is normal in structure and function. No aortic regurgitation is present. There is no aortic valvular stenosis. There is no aortic valvular vegetation. MITRAL VALVE The mitral valve is normal in structure and function. There is no evidence of mitral valve prolapse. There is no mitral valve stenosis. There is no mitral valve regurgitation noted. TRICUSPID VALVE The tricuspid valve is normal in structure and function. There is no tricuspid valve regurgitation noted. There is no tricuspid valve prolapse or vegetation. There is no tricuspid valve stenosis. PULMONIC VALVE The pulmonary valve is normal in structure and function. There is no pulmonic valvular regurgitation. There is no pulmonic valvular stenosis. GREAT VESSELS The aortic root is normal in size. The ascending aorta is normal in size. The pulmonary artery is normal. The IVC is normal in size and collapses >50% with inspiration. PERICARDIAL EFFUSION The pericardium appears normal. There is no pleural effusion. <Conclusion> There is moderate concentric left ventricular hypertrophy. The left ventricular ejection fraction is within the normal range. The Ejection Fraction is >55%.
--- NOTE | 2016-08-23 19:22 | CP.PCM.PN ---
Subjective - Date & Time of Evaluation Date of Evaluation: 08/23/16 Time of Evaluation: 19:21 - Subjective Subjective: slight cough Objective - Vital Signs/Intake and Output Vital Signs (last 24 hours): Temp Pulse Resp BP Pulse Ox 97.9 F 60 20 128/78 95 08/23/16 15:54 08/23/16 15:54 08/23/16 15:54 08/23/16 15:54 08/23/16 15:54 Intake and Output: 08/23/16 08/24/16 18:59 06:59 Intake Total 490 Balance 490 - Medications Medications: Current Medications Acetaminophen (Tylenol 325mg Tab) 650 mg PO Q6 PRN PRN Reason: Fever >100.4 F Last Admin: 08/16/16 20:50 Dose: 650 mg Vancomycin/Sodium Chloride (Vancocin) 200 mls @ 133.333 mls/hr IVPB Q12H [facility] Last Admin: 08/23/16 13:56 Dose: 133.333 mls/hr Cefepime HCl (Maxipime Iv 1 Gm Premix) 50 mls @ 100 mls/hr IVPB Q8 [facility] Last Admin: 08/23/16 13:55 Dose: 100 mls/hr Multivitamins (Hexavitamin) 1 tab PO DAILY [facility] Last Admin: 08/23/16 10:58 Dose: 1 tab Pantoprazole Sodium (Protonix Inj) 40 mg IVP DAILY [facility] Last Admin: 08/23/16 10:58 Dose: 40 mg Thiamine HCl (Vitamin B1 Tab) 100 mg PO BID [facility] Last Admin: 08/23/16 17:44 Dose: 100 mg - Labs Labs: 08/21/16 06:56 08/21/16 06:56 PT 11.8 SECONDS (9.7-12.2) 08/13/16 09:09 INR 1.1 08/13/16 09:09 APTT 34 SECONDS (21-34) 08/13/16 09:09 - Constitutional Appears: Non-toxic - Head Exam Head Exam: NORMAL INSPECTION - Eye Exam Eye Exam: Normal appearance Pupil Exam: NORMAL ACCOMODATION - ENT Exam ENT Exam: Normal Exam - Neck Exam Neck Exam: Full ROM - Respiratory Exam Respiratory Exam: NORMAL BREATHING PATTERN - Cardiovascular Exam Cardiovascular Exam: REGULAR RHYTHM - GI/Abdominal Exam GI & Abdominal Exam: Normal Bowel Sounds - Rectal Exam Rectal Exam: NORMAL INSPECTION - Exam Exam: NORMAL INSPECTION External exam: NORMAL EXTERNAL EXAM - Back Exam Back Exam: NORMAL INSPECTION - Neurological Exam Neurological Exam: Awake, Oriented x3 - Skin Skin Exam: Normal Color Assessment and Plan - Assessment and Plan (Free Text) Assessment: r/o tb Plan: as per id orders
--- NOTE | 2016-08-23 23:50 | CP.PCM.PN ---
Subjective - Date & Time of Evaluation Date of Evaluation: 08/23/16 Time of Evaluation: 23:50 - Subjective Subjective: Complains of cough Scanty expectoration. Gold QuantiFERON TB test--> Indeterminate. Presently in isolation TO obtain sputum for AFB [address] chest without contrast 08/21/16 to evaluate for bilateral multifocal pneumonia CHEST X-RAY SHOWING WORSENING RIGHT UPPER LOBE INFILTRATE Objective - Vital Signs/Intake and Output Vital Signs (last 24 hours): Temp Pulse Resp BP Pulse Ox 98.6 F 73 200 H 117/72 96 08/23/16 23:31 08/23/16 23:31 08/23/16 23:31 08/23/16 23:31 08/23/16 23:31 Intake and Output: 08/23/16 08/24/16 18:59 06:59 Intake Total 490 850 Balance 490 850 - Medications Medications: Current Medications Acetaminophen (Tylenol 325mg Tab) 650 mg PO Q6 PRN PRN Reason: Fever >100.4 F Last Admin: 08/16/16 20:50 Dose: 650 mg Vancomycin/Sodium Chloride (Vancocin) 200 mls @ 133.333 mls/hr IVPB Q12H [facility] Last Admin: 08/23/16 13:56 Dose: 133.333 mls/hr Cefepime HCl (Maxipime Iv 1 Gm Premix) 50 mls @ 100 mls/hr IVPB Q8 [facility] Last Admin: 08/23/16 21:05 Dose: 100 mls/hr Multivitamins (Hexavitamin) 1 tab PO DAILY [facility] Last Admin: 08/23/16 10:58 Dose: 1 tab Pantoprazole Sodium (Protonix Inj) 40 mg IVP DAILY [facility] Last Admin: 08/23/16 10:58 Dose: 40 mg Thiamine HCl (Vitamin B1 Tab) 100 mg PO BID [facility] Last Admin: 08/23/16 17:44 Dose: 100 mg - Labs Labs: 08/21/16 06:56 08/21/16 06:56 PT 11.8 SECONDS (9.7-12.2) 08/13/16 09:09 INR 1.1 08/13/16 09:09 APTT 34 SECONDS (21-34) 08/13/16 09:09 - Constitutional Appears: No Acute Distress - Head Exam Head Exam: NORMAL INSPECTION - Eye Exam Eye Exam: EOMI, PERRL - ENT Exam ENT Exam: Mucous Membranes Moist - Neck Exam Neck Exam: Normal Inspection - Respiratory Exam Respiratory Exam: Rhonchi (b/l) - Cardiovascular Exam Cardiovascular Exam: REGULAR RHYTHM, +S1, +S2 - GI/Abdominal Exam GI & Abdominal Exam: Soft, Normal Bowel Sounds. absent: Organomegaly - Extremities Exam Extremities Exam: absent: Calf Tenderness, Pedal Edema - Neurological Exam Neurological Exam: Awake, CN II-XII Intact, Oriented x3, Reflexes Normal - Psychiatric Exam Psychiatric exam: Normal Mood Assessment and Plan - Assessment and Plan (Free Text) Plan: IMPRESSION; -NEW FEVER SOURCE MOST LIKELY BILATERAL PNEUMONIA. ? CAP VS ATYPICAL. -ALCOHOL ABUSE/ALCOHOL INTOXICATION. - HX HTN. LABS REVIEWED ESR-127 5TU PPD. -ve reported by RN. QUANTIFERON GOLD TB TEST- indeterminate. HIV 1 AND 2 ANTIBODY FOURTH-GENERATION TEST -VE. PLAN ON iv mAXIPIME 1 G EVERY 8 HOURLY 3-6 X 2 DAYS MORE ON iv ZITHROMAX 500 MG DAILY DAILY 3-6 DC CONTINUE iv VANCOMYCIN 1 G EVERY 12 HOURLY X 2 DAYS MORE respiratory isolation SPUTUM AFB SMEAR/CULTURE x3 If negative-mAY dc ISOLATION AFTER 1 DAYS MAY SWITCH TO BY MOUTH AUGMENTIN 875 TWICE A DAY X 5 DAYS. FOLLOW UP SERIAL CHEST X-RAY IN 3-6 MONTHS. WILL DISCUSS WITH PULMONARY
[2016-08-24] MEDS: Vancomycin 1 gm/NS 200 ml 200 ML IVPB SCH ×2 (02:08→14:24)
[2016-08-24] MEDS: Cefepime IV 1 gm in Dextrose 50 ML IVPB SCH ×3 (05:30→21:13)
[2016-08-24] MEDS: Multiple Vitamins Tab PO SCH (10:01)
--- NOTE | 2016-08-24 11:15 | CP.PCM.PN ---
Subjective - Date & Time of Evaluation Date of Evaluation: 08/24/16 Time of Evaluation: 11:13 - Subjective Subjective: ocasionaly cough feels good Objective - Vital Signs/Intake and Output Vital Signs (last 24 hours): Temp Pulse Resp BP Pulse Ox 98.3 F 68 20 110/60 98 08/24/16 08:00 08/24/16 08:00 08/24/16 08:00 08/24/16 08:00 08/24/16 08:00 Intake and Output: 08/24/16 08/24/16 06:59 18:59 Intake Total 850 550 Balance 850 550 - Medications Medications: Current Medications Acetaminophen (Tylenol 325mg Tab) 650 mg PO Q6 PRN PRN Reason: Fever >100.4 F Last Admin: 08/16/16 20:50 Dose: 650 mg Vancomycin/Sodium Chloride (Vancocin) 200 mls @ 133.333 mls/hr IVPB Q12H [facility] Last Admin: 08/24/16 02:08 Dose: 133.333 mls/hr Cefepime HCl (Maxipime Iv 1 Gm Premix) 50 mls @ 100 mls/hr IVPB Q8 [facility] Last Admin: 08/24/16 05:30 Dose: 100 mls/hr Multivitamins (Hexavitamin) 1 tab PO DAILY [facility] Last Admin: 08/24/16 10:01 Dose: 1 tab Pantoprazole Sodium (Protonix Inj) 40 mg IVP DAILY [facility] Last Admin: 08/24/16 10:01 Dose: 40 mg Thiamine HCl (Vitamin B1 Tab) 100 mg PO BID [facility] Last Admin: 08/24/16 10:01 Dose: 100 mg - Labs Labs: 08/21/16 06:56 08/21/16 06:56 PT 11.8 SECONDS (9.7-12.2) 08/13/16 09:09 INR 1.1 08/13/16 09:09 APTT 34 SECONDS (21-34) 08/13/16 09:09 - Constitutional Appears: Non-toxic - Head Exam Head Exam: NORMAL INSPECTION - Eye Exam Eye Exam: Normal appearance Pupil Exam: NORMAL ACCOMODATION - ENT Exam ENT Exam: Normal External Ear Exam - Neck Exam Neck Exam: Full ROM - Respiratory Exam Respiratory Exam: Clear to Ausculation Bilateral - Cardiovascular Exam Cardiovascular Exam: REGULAR RHYTHM - GI/Abdominal Exam GI & Abdominal Exam: Normal Bowel Sounds - Rectal Exam Rectal Exam: NORMAL INSPECTION - Exam Exam: NORMAL INSPECTION - Extremities Exam Extremities Exam: Calf Tenderness - Back Exam Back Exam: NORMAL INSPECTION - Psychiatric Exam Psychiatric exam: Normal Affect - Skin Skin Exam: Normal Color Assessment and Plan - Assessment and Plan (Free Text) Assessment: improved alc improved await id clearance for d/c
--- NOTE | 2016-08-24 11:16 | CP.PCM.PN ---
Subjective - Date & Time of Evaluation Date of Evaluation: 08/24/16 Time of Evaluation: 10:00 - Subjective Subjective: Pt was seen and examined at bedside afebrial in no acute distress breathing comfortably on room air. The patient was recently placed in isolation by ID due to an indeterminate high result on quant gold test that was performed. Pt feels good today and denies night sweats, nausea, vomiting, fevers and chills, headache, chest pain, palpitations, and hemeoptysis. Complains of only an isolated minor morning cough that is productive with green phlegm that he has provided to the nurse. Pt with normal vitals; afebrial Objective - Vital Signs/Intake and Output Vital Signs (last 24 hours): Temp Pulse Resp BP Pulse Ox 98.3 F 68 20 110/60 98 08/24/16 08:00 08/24/16 08:00 08/24/16 08:00 08/24/16 08:00 08/24/16 08:00 Intake and Output: 08/24/16 08/24/16 06:59 18:59 Intake Total 850 550 Balance 850 550 - Medications Medications: Current Medications Acetaminophen (Tylenol 325mg Tab) 650 mg PO Q6 PRN PRN Reason: Fever >100.4 F Last Admin: 08/16/16 20:50 Dose: 650 mg Vancomycin/Sodium Chloride (Vancocin) 200 mls @ 133.333 mls/hr IVPB Q12H [facility] Last Admin: 08/24/16 02:08 Dose: 133.333 mls/hr Cefepime HCl (Maxipime Iv 1 Gm Premix) 50 mls @ 100 mls/hr IVPB Q8 [facility] Last Admin: 08/24/16 05:30 Dose: 100 mls/hr Multivitamins (Hexavitamin) 1 tab PO DAILY [facility] Last Admin: 08/24/16 10:01 Dose: 1 tab Pantoprazole Sodium (Protonix Inj) 40 mg IVP DAILY [facility] Last Admin: 08/24/16 10:01 Dose: 40 mg Thiamine HCl (Vitamin B1 Tab) 100 mg PO BID [facility] Last Admin: 08/24/16 10:01 Dose: 100 mg - Labs Labs: 08/21/16 06:56 08/21/16 06:56 PT 11.8 SECONDS (9.7-12.2) 08/13/16 09:09 INR 1.1 08/13/16 09:09 APTT 34 SECONDS (21-34) 08/13/16 09:09 - Constitutional Appears: Well, No Acute Distress - Head Exam Head Exam: ATRAUMATIC, NORMOCEPHALIC - Respiratory Exam Respiratory Exam: Rhonchi (bilateral lower lobes), NORMAL BREATHING PATTERN. absent: Clear to Ausculation Bilateral, Rales, Wheezes - Cardiovascular Exam Cardiovascular Exam: +S1, +S2. absent: Murmur - Neurological Exam Neurological Exam: Alert, Awake, Oriented x3 - Psychiatric Exam Psychiatric exam: Normal Affect, Normal Mood - Skin Skin Exam: Dry, Intact, Normal Color, Warm Assessment and Plan (1) Pneumonia Assessment & Plan: -CT 08/21/2016 chest showed resolving multilobar infiltrates bilaterally -continue current Abx -Pt to remain isolation as per ID due to indeterminate quant gold result 2015 -following serial AFBx3 (1) 08/21/2016 and (2) 08/22/2016 both negative -culture of sputum 08/22/2016 normal saima -clinically patient improving, Continue monitoring SOB, dyspnea, productive cough, and fever -08/21/16 ECHO showed EF >55% Status: Acute (2) Alcohol intoxication Status: Acute
--- NOTE | 2016-08-24 21:36 | CP.PCM.PN ---
Subjective - Date & Time of Evaluation Date of Evaluation: 08/24/16 Time of Evaluation: 21:35 - Subjective Subjective: Alert, awake, no sob or chest pains. c/o cough intermittent labs reviewed collecting SPUTUM FOR AFB PT IN ISOLATION. Objective - Vital Signs/Intake and Output Vital Signs (last 24 hours): Temp Pulse Resp BP Pulse Ox 98.3 F 68 19 114/72 97 08/24/16 15:00 08/24/16 16:07 08/24/16 15:00 08/24/16 15:00 08/24/16 15:00 Intake and Output: 08/24/16 08/25/16 18:59 06:59 Intake Total 550 Balance 550 - Medications Medications: Current Medications Acetaminophen (Tylenol 325mg Tab) 650 mg PO Q6 PRN PRN Reason: Fever >100.4 F Last Admin: 08/24/16 18:42 Dose: 650 mg Vancomycin/Sodium Chloride (Vancocin) 200 mls @ 133.333 mls/hr IVPB Q12H [facility] Last Admin: 08/24/16 14:24 Dose: 133.333 mls/hr Cefepime HCl (Maxipime Iv 1 Gm Premix) 50 mls @ 100 mls/hr IVPB Q8 [facility] Last Admin: 08/24/16 21:13 Dose: 100 mls/hr Multivitamins (Hexavitamin) 1 tab PO DAILY [facility] Last Admin: 08/24/16 10:01 Dose: 1 tab Pantoprazole Sodium (Protonix Inj) 40 mg IVP DAILY [facility] Last Admin: 08/24/16 10:01 Dose: 40 mg Thiamine HCl (Vitamin B1 Tab) 100 mg PO BID [facility] Last Admin: 08/24/16 17:13 Dose: 100 mg - Labs Labs: 08/21/16 06:56 08/21/16 06:56 PT 11.8 SECONDS (9.7-12.2) 08/13/16 09:09 INR 1.1 08/13/16 09:09 APTT 34 SECONDS (21-34) 08/13/16 09:09 - Constitutional Appears: No Acute Distress - Head Exam Head Exam: NORMAL INSPECTION - Eye Exam Eye Exam: EOMI, PERRL - ENT Exam ENT Exam: Mucous Membranes Moist - Neck Exam Neck Exam: Normal Inspection - Respiratory Exam Respiratory Exam: Rhonchi (BILATERAL.) - Cardiovascular Exam Cardiovascular Exam: REGULAR RHYTHM, +S1, +S2 - GI/Abdominal Exam GI & Abdominal Exam: Soft, Normal Bowel Sounds. absent: Organomegaly - Extremities Exam Extremities Exam: absent: Calf Tenderness, Pedal Edema - Neurological Exam Neurological Exam: Alert, Awake, CN II-XII Intact, Normal Gait, Oriented x3, Reflexes Normal - Psychiatric Exam Psychiatric exam: Normal Mood Assessment and Plan - Assessment and Plan (Free Text) Plan: IMPRESSION; -BILATERAL PNEUMONIA. ? CAP VS ATYPICAL R/O TB -ALCOHOL ABUSE/ALCOHOL INTOXICATION. - HX HTN. LABS REVIEWED ESR-127 5TU PPD. -ve reported by RN. QUANTIFERON GOLD TB TEST- indeterminate. HIV 1 AND 2 ANTIBODY FOURTH-GENERATION TEST -VE. SPUTUM 08/21, 08/22, 08/23 -P PLAN ON iv mAXIPIME 1 G EVERY 8 HOURLY 08/17/16- X 2 DAYS MORE ON iv ZITHROMAX 500 MG DAILY DAILY 08/17/16- DC CONTINUE iv VANCOMYCIN 1 G EVERY 12 HOURLY X 2 DAYS MORE RESP.ISOLATION. SPUTUM AFB SMEAR/CULTURE x3 If negative-mAY dc ISOLATION MAY SWITCH TO BY MOUTH AUGMENTIN 875 TWICE A DAY X 5 DAYS. FOLLOW UP SERIAL CHEST X-RAY IN 3-6 MONTHS. WILL DISCUSS WITH PULMONARY
[2016-08-24 23:24] VITALS: RESP 20
[2016-08-25] MEDS: Vancomycin 1 gm/NS 200 ml 200 ML IVPB SCH ×2 (02:40→14:35)
[2016-08-25] MEDS: Cefepime IV 1 gm in Dextrose 50 ML IVPB SCH ×2 (06:03→14:00)
[2016-08-25] MEDS: Multiple Vitamins Tab PO SCH (10:00)
--- NOTE | 2016-08-25 16:21 | CP.PCM.PN ---
Subjective - Date & Time of Evaluation Date of Evaluation: 08/25/16 Time of Evaluation: 16:21 - Subjective Subjective: Alert, awake, no sob or chest pains. Objective - Vital Signs/Intake and Output Vital Signs (last 24 hours): Temp Pulse Resp BP Pulse Ox 98.5 F 79 20 108/77 98 08/25/16 08:30 08/25/16 08:30 08/25/16 08:30 08/25/16 08:30 08/25/16 08:30 Intake and Output: 08/25/16 08/25/16 06:59 18:59 Intake Total 980 Balance 980 - Medications Medications: Current Medications Acetaminophen (Tylenol 325mg Tab) 650 mg PO Q6 PRN PRN Reason: Fever >100.4 F Last Admin: 08/24/16 18:42 Dose: 650 mg Vancomycin/Sodium Chloride (Vancocin) 200 mls @ 133.333 mls/hr IVPB Q12H [facility] Last Admin: 08/25/16 14:35 Dose: 133.333 mls/hr Cefepime HCl (Maxipime Iv 1 Gm Premix) 50 mls @ 100 mls/hr IVPB Q8 [facility] Last Admin: 08/25/16 14:00 Dose: 100 mls/hr Multivitamins (Hexavitamin) 1 tab PO DAILY [facility] Last Admin: 08/25/16 10:00 Dose: 1 tab Pantoprazole Sodium (Protonix Inj) 40 mg IVP DAILY [facility] Last Admin: 08/25/16 10:00 Dose: 40 mg Thiamine HCl (Vitamin B1 Tab) 100 mg PO BID [facility] Last Admin: 08/25/16 10:00 Dose: 100 mg - Labs Labs: 08/21/16 06:56 08/21/16 06:56 PT 11.8 SECONDS (9.7-12.2) 08/13/16 09:09 INR 1.1 08/13/16 09:09 APTT 34 SECONDS (21-34) 08/13/16 09:09 Assessment and Plan - Assessment and Plan (Free Text) Assessment: Patient is seen and examined. Alert, awake, not coughing actively. Has 3 negative AFB sputum. D/W DR Joe and DR Suarez , discharge plan for today on augmentin 875mg po BID for 5 days. Advised to f/u with PMD in 1 week.
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
[2016-08-25 16:52] VITALS: BP 102/36; PULSE 66; TEMP 98; O2SAT 99
== END 2016-08-25 18:30 | disposition home or self-care (01) | DRG 79 ==
LOC: C.ER 20:29 → C.9OBSV 21:18 → OBSVTOIN 08-13 09:00 → C.9E 08-13 09:19 → C.9I 08-13 15:20 → C.3T 08-15 12:12
PROVIDERS: ADMIT Internal Medicine; ATTEND Internal Medicine
PROC: HZ2ZZZZ Detoxification Services for Substance Abuse Treatment (ICD-10-PCS; principal; 2016-08-13)
PROC: 5A09457 Assistance with Respiratory Ventilation, 24-96 Consecutive Hours, Continuous Positive Airway Pressure (ICD-10-PCS; 2016-08-13)
DX: J69.0 Pneumonitis due to inhalation of food and vomit (principal); F10.230 Alcohol dependence with withdrawal, uncomplicated; Z78.1 Physical restraint status; I10 Essential (primary) hypertension; R09.02 Hypoxemia; F10.220 Alcohol dependence with intoxication, uncomplicated; F17.210 Nicotine dependence, cigarettes, uncomplicated; Y90.7 Blood alcohol level of 200-239 mg/100 ml; F41.9 Anxiety disorder, unspecified

== ENCOUNTER 2017-03-07 21:17 | Emergency (ER) | payer OTHER ==
[2017-03-07 21:21] VITALS: BMI 40.4
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
[2017-03-08 00:31] VITALS: RESP 16; O2SAT 97
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
[2017-03-08 05:52] VITALS: BP 97/61; PULSE 70; TEMP 97.9
== END 2017-03-08 06:00 | disposition home or self-care (01) ==
LOC: SUPCPDRO 21:17 → C.ER 21:17
DX: S05.12XA Contusion of eyeball and orbital tissues, left eye, initial encounter (principal); S00.211A Abrasion of right eyelid and periocular area, initial encounter; Y08.89XA Assault by other specified means, initial encounter

== ENCOUNTER 2017-04-30 21:19 | Emergency (ER) | payer OTHER ==
[2017-04-30 21:19] VITALS: BMI 40.4
[2017-04-30 21:33] VITALS: BP 142/81; PULSE 75; RESP 18; TEMP 98.1; O2SAT 99
== END 2017-04-30 21:33 | disposition left against medical advice (07) ==
LOC: C.ER 21:19 → SUPCPDRO 21:19 → C.ER 21:33
DX: F10.129 Alcohol abuse with intoxication, unspecified (principal); Z02.9 Encounter for administrative examinations, unspecified

== ENCOUNTER 2017-05-01 22:43 | Emergency (ER) | payer OTHER ==
[2017-05-01 22:44] VITALS: BMI 40.4
[2017-05-01 23:09] VITALS: O2SAT 95
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
[2017-05-02 04:53] VITALS: BP 132/90; PULSE 80; RESP 18; TEMP 97.6
== END 2017-05-02 05:20 | disposition home or self-care (01) ==
LOC: C.ER 22:43
DX: F10.129 Alcohol abuse with intoxication, unspecified (principal); Y90.9 Presence of alcohol in blood, level not specified

== ENCOUNTER 2017-06-28 19:49 | Emergency (ER) | payer OTHER ==
[2017-06-28 19:49] VITALS: BMI 40.4
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
[2017-06-29] VITALS: RESP 16; TEMP 98
[2017-06-29 05:45] VITALS: BP 111/72; PULSE 73; O2SAT 98
== END 2017-06-29 05:45 | disposition home or self-care (01) ==
LOC: C.ER 19:49
DX: F10.129 Alcohol abuse with intoxication, unspecified (principal); Y90.9 Presence of alcohol in blood, level not specified

== ENCOUNTER 2017-07-18 02:19 | Emergency (ER) | payer OTHER ==
[2017-07-18 02:19] VITALS: BMI 40.4
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
[2017-07-18 06:48] VITALS: BP 131/86; PULSE 72; RESP 18; TEMP 97.2; O2SAT 99
== END 2017-07-18 06:39 | disposition home or self-care (01) ==
LOC: C.ER 02:19
DX: F10.10 Alcohol abuse, uncomplicated (principal); M54.5 Low back pain; I10 Essential (primary) hypertension

== ENCOUNTER 2017-07-29 20:35 | Emergency (ER) | payer OTHER ==
[2017-07-29 20:35] VITALS: BMI 40.4
[2017-07-29 21:03] VITALS: O2SAT 98
--- NOTE | 2017-07-29 21:12 | C.PDOC ---
History Of Present Illness 61 y/o male brought to ER by ambulance for public intoxication. Patient does not have any active physical complaints. Patient has visited the ER multiple times in the past for similar evaluation with his last evaluation occurring on . Claims to be homeless since April [address] to stay overnight and is comfortable to be d/c there. Time Seen by Provider: 07/29/17 20:56 Chief Complaint (Nursing): Substance Abuse History Per: Patient Past Medical History Reviewed: Historical Data, Nursing Documentation, Vital Signs Vital Signs: Last Vital Signs Temp 98.1 F 07/29/17 20:58 Pulse 100 H 07/29/17 20:58 Resp 18 07/29/17 20:58 BP 160/100 H 07/29/17 20:58 Pulse Ox 98 07/29/17 21:47 - Medical History PMH: HTN Denies: Diabetes, Hepatitis, HIV, Seizures, Sexually Transmitted Disease Surgical History: No Surg Hx - [facility] Procedures ASSISTANCE WITH RESPIRATORY VENTILATION, 24-96 HRS, CPAP (08/13/16) DETOXIFICATION SERVICES FOR SUBSTANCE ABUSE TREATMENT (08/13/16) Family History: States: No Known Family Hx - Social History Hx Alcohol Use: Yes Hx Substance Use: No - Immunization History Hx Tetanus Toxoid Vaccination: No Hx Influenza Vaccination: No Hx Pneumococcal Vaccination: No Review Of Systems Except As Marked, All Systems Reviewed And Found Negative. Physical Exam - Physical Exam Appears: No Acute Distress, Other (obese black male ) Skin: Normal Color, Warm Head: Atraumatic, Normacephalic Eye(s): bilateral: Normal Inspection Nose: Normal Oral Mucosa: Other (ETOH on breath) Neck: Supple Chest: Symmetrical Cardiovascular: Rhythm Regular Respiratory: Normal Breath Sounds, No Accessory Muscle Use, No Rales, No Rhonchi , No Wheezing Neurological/Psych: Oriented x3, Normal Speech, Normal Motor, Normal Sensation ED Course And Treatment O2 Sat by Pulse Oximetry: 98 (RA) Pulse Ox Interpretation: Normal Progress Note: Patient appears agitated. Patient was placed in Room 8. On re- evaluation, patient is compliant with staff. There is no need for sedation and restraint. Patient's finger-stick is 116. Reevaluation Time: 23:01 Reassessment Condition: Improved (awake, oriented, Claims to be homeless since April 2017) Medical Decision Making Medical Decision Making: alcohol abuse Disposition Doctor Will See Patient In The: Office Counseled Patient/Family Regarding: Studies Performed, Diagnosis - Disposition Disposition: HOME/ ROUTINE Disposition Time: 23:02 Condition: GOOD Forms: [facility] (Welsh) - Clinical Impression Clinical Impression: Alcohol abuse - Scribe Statement The provider has reviewed the documentation as recorded by the Mirzaibe Christiano Vo Provider Attestation: All medical record entries made by the Mirzaibe were at my direction and personally dictated by me. I have reviewed the chart and agree that the record accurately reflects my personal performance of the history, physical exam, medical decision making, and the department course for this patient. I have also personally directed, reviewed, and agree with the discharge instructions and disposition.
[2017-07-29 23:42] VITALS: BP 129/85; PULSE 87; RESP 20; TEMP 98
== END 2017-07-29 23:43 | disposition home or self-care (01) ==
LOC: C.ER 20:35
DX: F10.10 Alcohol abuse, uncomplicated (principal); Y90.9 Presence of alcohol in blood, level not specified

== ENCOUNTER 2017-08-10 15:24 | Observation (INO) | payer OTHER ==
[2017-08-10 15:24] VITALS: BMI 40.4
[2017-08-10 15:50] LABS: BASO # 0.1 K/uL (0.0-0.2); EOS # 0.1 K/uL (0.0-0.7); EOS % 1.3 % (0.0-4.0); LYMPH # 2.3 K/uL (1.0-4.3); LYMPH % 39.9 % (20.0-40.0); MEAN CORPUSCULAR HEMOGLOBIN 32.8 pg (27.0-31.0); MEAN CORPUSCULAR HGB CONC 33.3 g/dL (33.0-37.0); MEAN PLATELET VOLUME 8.5 fL (7.2-11.7); MONO # 0.7 K/uL (0.0-0.8); MONO % 12.7 % (0.0-10.0); NEUT # 2.6 K/uL (1.8-7.0); NEUT % 45.1 % (50.0-75.0); NRBC % 0.1 % (0.0-2.0); RBC 3.98 Mil/uL (4.40-5.90); RED CELL DISTRIBUTION WIDTH 13.8 % (11.5-14.5); WHITE BLOOD COUNT 5.8 K/uL (4.8-10.8)
[2017-08-10 15:52] LABS: MEAN CELL VOLUME 98.4 fL (80.0-94.0)
[2017-08-10 15:55] LABS: ALB/GLOB RATIO 1.3 (1.0-2.1); ALBUMIN 4.6 g/dL (3.5-5.0); ALT/SGPT 36 U/L (21-72); AST/SGOT 50 U/L (17-59); BLOOD UREA NITROGEN 14 mg/dL (9-20); CALCIUM 9.1 mg/dl (8.6-10.4); GFR AFRICAN-AMERICAN > 60; GFR NON-AFRICAN AMERICAN > 60
[2017-08-10 15:58] LABS: ACETAMINOPHEN < 10.0 ug/mL (10.0-30.0); SALICYLATE < 1.0 mg/dL 1
--- NOTE | 2017-08-10 15:58 | RAD ---
PROCEDURE: CHEST RADIOGRAPH, 1 VIEW HISTORY: Detox/Psy COMPARISON: 08/20/2016 FINDINGS: LUNGS: Clear. PLEURA: No pneumothorax or pleural fluid seen. CARDIOVASCULAR: Normal. OSSEOUS STRUCTURES: No significant abnormalities. VISUALIZED UPPER ABDOMEN: Normal. OTHER FINDINGS: None. IMPRESSION: No active disease.
--- NOTE | 2017-08-10 16:02 | C.PDOC ---
History Of Present Illness 61 year old male, Hx of homelessness, alcohol abuse, is brought to ED via ALS for reported seizure [place] [facility]. Ativan 2mg IVP was administered en route. Pt is alert and oriented x3 at this time. Denies recent drug use. Notes last drink was 2 days ago. Denies any active physical complaints at this time. Time Seen by Provider: 08/10/17 15:27 Chief Complaint (Nursing): Seizure History Per: Patient History/Exam Limitations: no limitations Past Medical History Reviewed: Historical Data, Nursing Documentation, Vital Signs Vital Signs: Last Vital Signs Temp 98.2 F 08/10/17 15:37 Pulse 67 08/10/17 18:06 Resp 18 08/10/17 18:06 BP 117/66 08/10/17 18:06 Pulse Ox 98 08/10/17 18:29 - Medical History PMH: HTN Denies: Diabetes, Hepatitis, HIV, Seizures, Sexually Transmitted Disease - [facility] Procedures ASSISTANCE WITH RESPIRATORY VENTILATION, 24-96 HRS, CPAP (08/13/16) DETOXIFICATION SERVICES FOR SUBSTANCE ABUSE TREATMENT (08/13/16) Family History: States: Unknown Family Hx - Social History Hx Alcohol Use: Yes Hx Substance Use: No - Immunization History Hx Tetanus Toxoid Vaccination: No Hx Influenza Vaccination: No Hx Pneumococcal Vaccination: No Review Of Systems Except As Marked, All Systems Reviewed And Found Negative. Constitutional: Negative for: Fever, Chills Cardiovascular: Negative for: Chest Pain, Palpitations Respiratory: Negative for: Cough, Shortness of Breath Gastrointestinal: Negative for: Nausea, Vomiting, Abdominal Pain Skin: Negative for: Rash, Lesions Neurological: Positive for: Seizures. Negative for: Headache, Dizziness Physical Exam - Physical Exam Appears: Non-toxic, No Acute Distress Skin: Normal Color, Warm, Dry Head: Atraumatic, Normacephalic Eye(s): bilateral: Normal Inspection Oral Mucosa: Moist Neck: Supple Cardiovascular: Rhythm Regular, No Murmur Respiratory: Normal Breath Sounds, No Rales, No Rhonchi, No Wheezing Gastrointestinal/Abdominal: Soft, No Tenderness Extremity: Normal ROM Neurological/Psych: Oriented x3, Normal Speech, Normal Cognition, No Other (no focal deficits) ED Course And Treatment - Laboratory Results Result Diagrams: 08/10/17 15:33 08/10/17 15:33 ECG Rhythm: Sinus Rhythm, ST/T Changes (no changes) ECG Interpretation: Normal Rate From EC O2 Sat by Pulse Oximetry: 98 Pulse Ox Interpretation: Normal Medical Decision Making Medical Decision Making: seizure -pt denies any h/o of seizure. last drink 2 days ago, no tremors on exam , s/p ativan. labs imaging pending [address] agarwal with obs poor outpt support, homeless Disposition - Disposition Disposition: HOSPITALIZED Disposition Time: 17:21 Condition: STABLE - Clinical Impression Clinical Impression: Seizure - Scribe Statement The provider has reviewed the documentation as recorded by the Mirzaibe Mandy Lennon All medical record entries made by the Mirzaibsuzette were at my direction and personally dictated by me. I have reviewed the chart and agree that the record accurately reflects my personal performance of the history, physical exam, medical decision making, and the department course for this patient. I have also personally directed, reviewed, and agree with the discharge instructions and disposition. Decision To Admit - Pt Status Changed To: Hospital Disposition Of: Observation - . Bed Request Type: Telemetry Admitting Physician: Gama Agarwal Patient Diagnosis: Seizure
--- NOTE | 2017-08-10 17:17 | CT ---
PROCEDURE: CT HEAD WITHOUT CONTRAST. HISTORY: seizure COMPARISON: 03/07/2017 TECHNIQUE: Axial computed tomography images were obtained through the head/brain without intravenous contrast. Radiation dose: Total exam DLP = 1029.10 mGy-cm. This CT exam was performed using one or more of the following dose reduction techniques: Automated exposure control, adjustment of the mA and/or kV according to patient size, and/or use of iterative reconstruction technique. FINDINGS: HEMORRHAGE: No intracranial hemorrhage. BRAIN: No mass effect or edema. No atrophy or chronic microvascular ischemic changes. VENTRICLES: Unremarkable. No hydrocephalus. CALVARIUM: Unremarkable. PARANASAL SINUSES: Unremarkable as visualized. No significant inflammatory changes. MASTOID AIR CELLS: Unremarkable as visualized. No inflammatory changes. OTHER FINDINGS: None. IMPRESSION: Normal CT of the Head. No intracranial mass, hemorrhage or evidence of acute infarct.
[2017-08-10] MEDS: Dextrose 5%/0.45% NS 1,000 ML IV SCH (20:20)
[2017-08-10 21:27] LABS: SQUAMOUS EPITHIAL < 1 /hpf (0-5); URINE BILIRUBIN NEGATIVE (NEGATIVE); URINE BLOOD 2+ (NEGATIVE); URINE CLARITY Clear (Clear); URINE COLOR Yellow (YELLOW); URINE GLUCOSE (UA) NORMAL (Normal); URINE LEUKOCYTE ESTERASE NEG Leu/uL (Negative); URINE PROTEIN 1+ mg/dL (NEGATIVE); URINE UROBILINOGEN NORMAL mg/dL (0.2-1.0)
[2017-08-10 21:33] LABS: SPERM URINE OCC /hpf; URINE HYALINE CAST 0-2 /lpf (0-2)
[2017-08-10 21:40] LABS: BARBITURATES, UR NEGATIVE (NEGATIVE); BENZODIAZEPINES, UR NEGATIVE (NEGATIVE); OPIATES, UR NEGATIVE (NEGATIVE); PHENCYCLIDINE, UR NEGATIVE (NEGATIVE)
[2017-08-11] MEDS: Dextrose 5%/0.45% NS 1,000 ML IV SCH ×2 (06:17→18:40)
[2017-08-11] MEDS ORDERED: Enoxaparin 40 mg Syringe SC SCH (12:45)
[2017-08-12] MEDS: Dextrose 5%/0.45% NS 1,000 ML IV SCH (05:25)
[2017-08-12] MEDS ORDERED: Influenza Vaccine 60 mcg/0.5 mL SYR (4YR UP) IM ONE ×2 (10:00→11:15)
[2017-08-12] MEDS ORDERED: Pneumococcal 23-Valent Vaccine IM ONE (10:00)
[2017-08-12] MEDS ORDERED: Enoxaparin 60 mg Syringe SC SCH (10:00)
--- NOTE | 2017-08-12 11:26 | CP.PCM.PN ---
Subjective - Date & Time of Evaluation Date of Evaluation: 08/12/17 Time of Evaluation: 09:35 - Subjective Subjective: PGY-[address] Giraldo Patient seen and examined at bedside. No further seizure activity reported. Patient states that he had couple shots of vodka and beers earlier on the day of seizure activity. Patient is resting comfortably without complaints. Patient denies fever, chills, headache, shortness of breath, chest pain, nausea, vomiting. Objective - Vital Signs/Intake and Output Vital Signs (last 24 hours): Temp Pulse Resp BP Pulse Ox 97.4 F L 56 L 18 144/87 96 08/12/17 07:00 08/12/17 07:55 08/12/17 07:00 08/12/17 07:00 08/12/17 07:00 Intake and Output: 08/12/17 08/12/17 06:59 18:59 Intake Total 2100 Output Total 2200 Balance -100 - Medications Medications: Current Medications Enoxaparin Sodium (Lovenox) 40 mg SC DAILY [facility] Last Admin: 08/12/17 11:12 Dose: 40 mg Folic Acid (Folic Acid) 1 mg PO DAILY [facility] Last Admin: 08/12/17 11:12 Dose: 1 mg Dextrose/Sodium Chloride (Dextrose 5%/0.45% Ns 1000 Ml) 1,000 mls @ 100 mls/hr IV .Q10H [facility] Last Admin: 08/12/17 05:25 Dose: 100 mls/hr Lorazepam (Ativan) 2 mg PO Q8H PRN PRN Reason: alcohol abuse Thiamine HCl (Vitamin B1 Tab) 100 mg PO DAILY [facility] Last Admin: 08/12/17 11:12 Dose: 100 mg - Labs Labs: 08/10/17 15:33 08/10/17 15:33 - Constitutional Appears: Well, No Acute Distress - Eye Exam Eye Exam: EOMI, Normal appearance - ENT Exam ENT Exam: Mucous Membranes Moist - Neck Exam Neck Exam: Normal Inspection - Respiratory Exam Respiratory Exam: Clear to Ausculation Bilateral, NORMAL BREATHING PATTERN. absent: Respiratory Distress - Cardiovascular Exam Cardiovascular Exam: REGULAR RHYTHM, +S1, +S2. absent: Murmur - GI/Abdominal Exam GI & Abdominal Exam: Soft, Normal Bowel Sounds. absent: Tenderness - Extremities Exam Extremities Exam: Normal Inspection - Neurological Exam Neurological Exam: Alert, Awake, Oriented x3 - Psychiatric Exam Psychiatric exam: Normal Affect, Normal Mood - Skin Skin Exam: Dry, Warm Assessment and Plan - Assessment and Plan (Free Text) Assessment: Seizure activity -Likely alcohol induced -No further activity overnight -Ativan 2mg po q8 prn Alcohol abuse -Cessation was strongly advised -Folic acid 1mg po -Thiamine 100mg po Patient is medically stable to be discharged per Dr. Giraldo All management per Dr. Giraldo
--- NOTE | 2017-08-12 13:16 | HP ---
HISTORY OF PRESENT ILLNESS: A 61-year-old male with chief complaint of seizure, alcoholism. The patient came, advised admission. PHYSICAL EXAMINATION: GENERAL: The patient is awake, lethargic. VITAL SIGNS: Temperature 98, pulse 90. HEENT: Within normal limits. NECK: Supple. CHEST: Symmetrical. HEART: Regular. ABDOMEN: Soft. EXTREMITIES: No edema. IMPRESSION: Seizure, alcoholism, ____. The patient in bedrest. Neuro check. Gama Giraldo MD
[2017-08-12 16:54] VITALS: BP 117/67; PULSE 69; RESP 20; TEMP 98.2; O2SAT 97
== END 2017-08-12 18:06 | disposition home or self-care (01) ==
LOC: C.ER 15:24 → C.9E 17:19 → C.6T 17:51 → C.5S 08-12 09:05
PROVIDERS: ADMIT Internal Medicine Pulmonary Disease; ATTEND Internal Medicine Pulmonary Disease
DX: F10.20 Alcohol dependence, uncomplicated (principal); I10 Essential (primary) hypertension; R56.9 Unspecified convulsions
CPT/HCPCS: 70450; 71045; 80053; 80320; 80324; 80329; 80345; 80346; 80349; 80353; 80358; 80361; 81001; 82948; 83735; 83992; 85025; 90471; 90674; 99285; G0378; J1650; J7042

== ENCOUNTER 2017-12-20 16:48 | Emergency (ER) | payer OTHER ==
[2017-12-20 17:04] VITALS: BMI 28.5
[2017-12-20 17:14] VITALS: TEMP 97.7
[2017-12-20] MEDS ORDERED: Tetanus/Diphtheria Toxoids 0.5 ml Syringe IM ONE ×2 (17:16→17:25)
--- NOTE | 2017-12-20 18:01 | CT ---
Date of service: 12/20/2017 PROCEDURE: CT HEAD WITHOUT CONTRAST. HISTORY: head injury s/p fall, etoh abuse COMPARISON: CT head dated 08/10/2017. TECHNIQUE: Axial computed tomography images were obtained through the head/brain without intravenous contrast. Radiation dose: Total exam DLP = 1045 mGy-cm. This CT exam was performed using one or more of the following dose reduction techniques: Automated exposure control, adjustment of the mA and/or kV according to patient size, and/or use of iterative reconstruction technique. FINDINGS: HEMORRHAGE: No intracranial hemorrhage. BRAIN: No mass effect or edema. Mild atrophy. Mild chronic microvascular ischemic changes. Right basal ganglia lacunar infarction redemonstrated. VENTRICLES: Unremarkable. No hydrocephalus. CALVARIUM: Unremarkable. PARANASAL SINUSES: Unremarkable as visualized. No significant inflammatory changes. MASTOID AIR CELLS: Unremarkable as visualized. No inflammatory changes. OTHER FINDINGS: None. IMPRESSION: No acute intracranial pathology.
--- NOTE | 2017-12-20 18:05 | CT ---
Date of service: 12/20/2017 PROCEDURE: CT MAXILLOFACIAL BONES WITHOUT CONTRAST HISTORY: facial injuries, r/o fx, s/p fall COMPARISON: None TECHNIQUE: Contiguous axial CT images of the maxillofacial bones were obtained. Coronal and sagittal reformats were generated. Radiation dose: Total exam DLP = 874.0 mGy-cm. This CT exam was performed using one or more of the following dose reduction techniques: Automated exposure control, adjustment of the mA and/or kV according to patient size, and/or use of iterative reconstruction technique. FINDINGS: NASAL BONES: Unremarkable. ORBITS: Unremarkable. PARANASAL SINUSES/ MASTOIDS: Clear. MAXILLA: Unremarkable. MANDIBLE/ TEMPOROMANDIBULAR JOINTS: Comminuted, predominantly oblique fracture through the left mandibular body/symphysis. Displaced oblique fracture through the right mandibular ramus with medial and superior migration SKULL BASE: Unremarkable. TEMPORAL BONES: Middle ears and mastoid grossly unremarkable. OTHER FINDINGS: None. IMPRESSION: Displaced right mandibular ramus fracture with medial in superior migration. Comminuted, predominantly oblique fracture of the left mandibular body/symphysis.
--- NOTE | 2017-12-20 18:10 | C.PDOC ---
History Of Present Illness 62-year-old male BIBA for evaluation after falling onto his face. Patient has bleeding from mouth and swelling to left scalp, is c/o lower mouth pain, posterior headache and left elbow pain. He admits that he has been drinking alcohol today and fell. History is limited due to alcohol intoxication. Time Seen by Provider: 12/20/17 16:52 Chief Complaint (Nursing): Substance Abuse History Per: Patient, EMS History/Exam Limitations: intoxication Current Symptoms Are (Timing): Still Present Modifying Factor(s): Alcohol Severity: Moderate Past Medical History Reviewed: Historical Data, Nursing Documentation, Vital Signs Vital Signs: Last Vital Signs Temp 97.7 F 12/20/17 17:08 Pulse 80 12/20/17 18:19 Resp 16 12/20/17 18:19 BP 112/73 12/20/17 18:19 Pulse Ox 91 L 12/20/17 18:45 - Medical History PMH: HTN - [facility] Procedures ASSISTANCE WITH RESPIRATORY VENTILATION, 24-96 HRS, CPAP (08/13/16) DETOXIFICATION SERVICES FOR SUBSTANCE ABUSE TREATMENT (08/13/16) Family History: States: No Known Family Hx - Social History Hx Alcohol Use: Yes Hx Substance Use: No - Immunization History Hx Tetanus Toxoid Vaccination: No Hx Influenza Vaccination: No Hx Pneumococcal Vaccination: No Review Of Systems Constitutional: Negative for: Fever, Chills Cardiovascular: Negative for: Chest Pain Respiratory: Negative for: Cough, Shortness of Breath Gastrointestinal: Negative for: Nausea, Vomiting, Abdominal Pain Musculoskeletal: Negative for: Neck Pain, Back Pain Skin: Negative for: Rash Neurological: Positive for: Headache (left posterior ), Other (mouth/jaw pain ) . Negative for: Dizziness Physical Exam - Physical Exam Appears: Non-toxic, Unkempt, Other (appears intoxicated, in mild pain) Skin: Warm, Dry, No Rash Head: Abrasion (Left occipital scalp: approx 3cm abrasion overlying a contusion) , No Laceration Eye(s): bilateral: Normal Inspection ((-) [place] eyes), PERRL, EOMI Ear(s): Bilateral: Normal ((-) [place] sign ) Nose: Normal, No Epistaxis, No Deformity, No Tenderness, No Septal Hematoma Oral Mucosa: Moist Tongue: Normal Appearing Lips: Normal Appearing Teeth: Other (Tooth #22 missing (+) bleeding from empty socket, no obviouis intraoral lacerations, B/L jaw diffuselt TTP and with mild swelling) Throat: Normal, No Erythema, No Exudate Neck: Normal, Normal ROM, No Midline Cervical Tenderness, No Paracervical Tenderness, No Step Off Deformity Cardiovascular: Rhythm Regular Respiratory: Normal Breath Sounds, No Rales, No Rhonchi, No Wheezing Gastrointestinal/Abdominal: Normal Exam, Bowel Sounds, Soft, No Tenderness, Other (obese) Extremity: Capillary Refill (<2 seconds all digits ), No Deformity, Other (Left lateral elbow, mild swelling and TTP) Neurological/Psych: Other (intoxicated but easily arousable to verbal stimuli, moving all 4 extremities spontaneously) ED Course And Treatment O2 Sat by Pulse Oximetry: 91 (RA) Pulse Ox Interpretation: Abnormal - CT Scan/US CT HEAD Other Rad Studies (CT/US): Read By Radiologist, Radiology Report Reviewed CT/US Interpretation: Accession No. : [id number]. Patient Name / ID : DOM MELO / [id number]. Exam Date : 12/20/2017 17:44:12 ( Approved ). Study Comment : Sex / Age : M / 62Y. Creator : Arun Barton MD. Dictator : Arun Barton MD. Pct : Sales Trainer : Arun Barton MD. Approver2 : Report Date : 12/20/2017 17:59:38. My Comment : . Date of service: 12/20/2017. PROCEDURE: CT HEAD WITHOUT CONTRAST. HISTORY: head injury s/p fall, etoh abuse. COMPARISON: CT head dated 08/10/2017. TECHNIQUE: Axial computed tomography images were obtained through the head/ brain without intravenous contrast. Radiation dose: Total exam DLP = 1045 mGy- cm. This CT exam was performed using one or more of the following dose reduction techniques: Automated exposure control, adjustment of the mA and/or kV according to patient size, and/or use of iterative reconstruction technique. FINDINGS: HEMORRHAGE: No intracranial hemorrhage. BRAIN: No mass effect or edema. Mild atrophy. Mild chronic microvascular ischemic changes. Right basal ganglia lacunar infarction redemonstrated. VENTRICLES: Unremarkable. No hydrocephalus. CALVARIUM: Unremarkable. PARANASAL SINUSES: Unremarkable as visualized. No significant inflammatory changes. MASTOID AIR CELLS: Unremarkable as visualized. No inflammatory changes. OTHER FINDINGS: None. IMPRESSION: No acute intracranial pathology. CT MAX/FACE Other Rad Studies (CT/US): Read By Radiologist, Radiology Report Reviewed CT/US Interpretation: Accession No. : [id number]. Patient Name / ID : DOM MELO / [id number]. Exam Date : 12/20/2017 17:47:10 ( Approved ). Study Comment : Sex / Age : M / 62Y. Creator : Arun Barton MD. Dictator : Arun Barton MD. Pct : Sales Trainer : Arun Barton MD. Approver2 : Report Date : 12/20/2017 18:03:51. My Comment : . Date of service: 12/20/2017. PROCEDURE: CT MAXILLOFACIAL BONES WITHOUT CONTRAST. HISTORY: facial injuries, r/o fx, s/p fall. COMPARISON: None. TECHNIQUE: Contiguous axial CT images of the maxillofacial bones were obtained. Coronal and sagittal reformats were generated. Radiation dose: Total exam DLP = 874.0 mGy-cm. This CT exam was performed using one or more of the following dose reduction techniques: Automated exposure control, adjustment of the mA and/or kV according to patient size, and/or use of iterative reconstruction technique. FINDINGS: NASAL BONES: Unremarkable. ORBITS: Unremarkable. PARANASAL SINUSES/ MASTOIDS: Clear. MAXILLA: Unremarkable. MANDIBLE/ TEMPOROMANDIBULAR JOINTS: Comminuted, predominantly oblique fracture through the left mandibular body/symphysis. Displaced oblique fracture through the right mandibular ramus with medial and superior migration. SKULL BASE: Unremarkable. TEMPORAL BONES: Middle ears and mastoid grossly unremarkable. OTHER FINDINGS: None. IMPRESSION: Displaced right mandibular ramus fracture with medial in superior migration. Comminuted, predominantly oblique fracture of the left mandibular body/symphysis. left elbow Xray Other Rad Studies (CT/US): Interpreted By Me CT/US Interpretation: no posterior fat pad, questionable radial head nondisplaced fx. Progress Note: CT head and maxillofacial bones, as well as Xray left elbow ordered and reviewed. Patient given IM tetanus vaccination, IV Zosyn, IV Morphine, IV NS bolus. Xray left elbow shows possible radial head fx, patient placed in left elbow posterior splint by information technology professor. 6:10pm- Spoke with OMFS at [facility] Dr. Fernández, patient needs to be sent to their ER for OMFS evaluation. However the OMFS service does not accept transfers, will need to speak to ER. 6:20pm- Spoke with ER physical Dr. Mayes at [facility], accepts patient for transfer to their ER for further OMFS evaluation. Disposition - Disposition Disposition Time: 19:00 Condition: STABLE Forms: [facility] (Italian) - POA Present On Arrival: Falls Or Trauma - Clinical Impression Clinical Impression: Alcohol intoxication, Closed fracture of mandible, symphysis of body, Fracture of ramus of mandible, closed, Closed head injury, Radial head fracture, closed - Scribe Statement The provider has reviewed the documentation as recorded by the Scribe (Lucretia Renee) All medical record entries made by the Scribe were at my direction and personally dictated by me. I have reviewed the chart and agree that the record accurately reflects my personal performance of the history, physical exam, medical decision making, and the department course for this patient. I have also personally directed, reviewed, and agree with the discharge instructions and disposition. Physician Patient Turnover Patient Signed Over To: Briana Pedraza Handoff Comments: pending transfer to [facility]
[2017-12-20] MEDS ORDERED: Piperacill/Tazo 3.375gm in Dex 3.375 GM/50 ML BAG IVPB STA (18:25)
[2017-12-20] MEDS ORDERED: Sodium Chloride 0.9% 1,000 ML IV ONE (18:38)
[2017-12-20] MEDS ORDERED: Piperacillin/Tazobact 3.375 gm 100 ML IVPB ONE (18:54)
[2017-12-20] MEDS ORDERED: Sodium Chloride 0.9% 1,000 ML ONE (18:55)
[2017-12-20 18:59] VITALS: BP 120/75; PULSE 76; RESP 18; O2SAT 91
[2017-12-20 18:59] LABS: ALB/GLOB RATIO 1.3 (1.0-2.1); ALBUMIN 4.4 g/dL (3.5-5.0); ALT/SGPT 42 U/L (21-72); AST/SGOT 54 U/L (17-59); BLOOD UREA NITROGEN 12 mg/dL (9-20); CALCIUM 9.1 mg/dl (8.6-10.4); GFR AFRICAN-AMERICAN > 60; GFR NON-AFRICAN AMERICAN > 60
[2017-12-20 19:04] LABS: BASO % 1.2 % (0.0-2.0); EOS % 0.8 % (0.0-4.0); HEMOGLOBIN 13.3 g/dL (12.0-18.0); LYMPH # 1.3 K/uL (1.0-4.3); MEAN CELL VOLUME 97.9 fL (80.0-94.0); MEAN CORPUSCULAR HGB CONC 33.7 g/dL (33.0-37.0); MONO # 0.4 K/uL (0.0-0.8); MONO % 9.9 % (0.0-10.0); NEUT # 2.2 K/uL (1.8-7.0); NEUT % 55.1 % (50.0-75.0); NRBC % 0.1 % (0.0-2.0); RBC 4.02 Mil/uL (4.40-5.90); RED CELL DISTRIBUTION WIDTH 13.5 % (11.5-14.5)
--- NOTE | 2017-12-20 19:04 | RAD ---
Date of service: 12/20/2017 PROCEDURE: Radiographs of the left elbow. HISTORY: left elbow pain after fall COMPARISON: No prior. FINDINGS: BONES: Questionable fragmentation of the olecranon posteriorly. Questionable fracture of the coronoid process. JOINTS: Unremarkable. SOFT TISSUES: Olecranon region soft tissue swelling. JOINT EFFUSION: None. OTHER FINDINGS: Triceps tendon enthesophyte IMPRESSION: Questionable fractures of the coronoid process. Questionable fragmentation of the olecranon.
== END 2017-12-20 21:01 | disposition short-term general hospital (02) ==
LOC: C.ER 16:48
DX: S02.66XA Fracture of symphysis of mandible, initial encounter for closed fracture (principal); S02.641A Fracture of ramus of right mandible, initial encounter for closed fracture; S52.122A Displaced fracture of head of left radius, initial encounter for closed fracture; W01.0XXA Fall on same level from slipping, tripping and stumbling without subsequent striking against object, initial encounter; Y92.9 Unspecified place or not applicable; F10.129 Alcohol abuse with intoxication, unspecified; Y90.8 Blood alcohol level of 240 mg/100 ml or more; I10 Essential (primary) hypertension
CPT/HCPCS: 70450; 70486; 73080; 80053; 82948; 85025; 85610; 85730; 90471; 90714; 96365; 96375; 99285; G0480; J2270; J2543; J7030

== ENCOUNTER 2018-01-23 11:35 | Emergency (ER) | payer SELFPAY ==
[2018-01-23 11:36] VITALS: BMI 28.5
--- NOTE | 2018-01-23 12:54 | C.PDOC ---
History Of Present Illness 62 y/o male brought to ED by [facility] for acute ETOH intoxication. Patient AAOX3 at ED and denies chest pain, sob, nausea, vomiting or any other complaints at this time. Time Seen by Provider: 01/23/18 12:49 Chief Complaint (Nursing): Substance Abuse History Per: Patient History/Exam Limitations: no limitations Onset/Duration Of Symptoms: Days Current Symptoms Are (Timing): Still Present Suicide/Self Injury Attempted (Context): None Modifying Factor(s): Alcohol Past Medical History Reviewed: Historical Data, Nursing Documentation, Vital Signs Vital Signs: Last Vital Signs Temp 98 F 01/23/18 14:54 Pulse 72 01/23/18 14:54 Resp 17 01/23/18 14:54 BP 112/70 01/23/18 14:54 Pulse Ox 96 01/23/18 14:54 - Medical History PMH: HTN Surgical History: No Surg Hx - [facility] Procedures ASSISTANCE WITH RESPIRATORY VENTILATION, 24-96 HRS, CPAP (08/13/16) DETOXIFICATION SERVICES FOR SUBSTANCE ABUSE TREATMENT (08/13/16) Family History: States: No Known Family Hx - Social History Hx Alcohol Use: Yes Hx Substance Use: No - Immunization History Hx Tetanus Toxoid Vaccination: No Hx Influenza Vaccination: No Hx Pneumococcal Vaccination: No Review Of Systems Constitutional: Negative for: Fever, Chills Cardiovascular: Negative for: Chest Pain Respiratory: Negative for: Shortness of Breath Gastrointestinal: Negative for: Nausea, Vomiting Skin: Negative for: Rash Psych: Positive for: Other (substance abuse). Negative for: Suicidal ideation Physical Exam - Physical Exam Appears: Non-toxic, No Acute Distress, Other (ETOH on breath) Skin: Warm, Dry, No Rash Head: Atraumatic, Normacephalic Eye(s): bilateral: Normal Inspection Oral Mucosa: Moist Neck: Normal ROM, Supple Chest: Symmetrical, No Tenderness Cardiovascular: Rhythm Regular, No Friction Rub, No Murmur Respiratory: Normal Breath Sounds, No Rales, No Rhonchi, No Wheezing Gastrointestinal/Abdominal: Soft, No Tenderness, No Guarding, No Rebound Back: Normal Inspection, No CVA Tenderness Extremity: Normal ROM, Capillary Refill (<2 seconds), No Swelling Neurological/Psych: Oriented x3, Normal Speech, Normal Cognition Gait: Steady ED Course And Treatment O2 Sat by Pulse Oximetry: 95 (RA) Pulse Ox Interpretation: Normal Medical Decision Making Medical Decision Making: On re-exam, the patient reports improvement of symptoms. Lungs are CTA, heart is RRR, abdomen is soft, non-tender and tolerating PO well. Ambulatory in the ED with steady gait. Follow up with the medical doctor within 1-2 days. Return if worsened. Disposition - Disposition Referrals: [facility] at [facility] [Outside] Disposition: HOME/ ROUTINE Disposition Time: 15:01 Condition: STABLE Additional Instructions: Follow up with the medical doctor within 1-2 days. Return if worsened. Instructions: Alcohol Use - When Is Drinking a Problem? 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 - Scribe Statement The provider has reviewed the documentation as recorded by the Mirzaibsuzette Moreno All medical record entries made by the Mirzaibsuzette were at my direction and personally dictated by me. I have reviewed the chart and agree that the record accurately reflects my personal performance of the history, physical exam, medical decision making, and the department course for this patient. I have also personally directed, reviewed, and agree with the discharge instructions and disposition.
[2018-01-23 14:55] VITALS: BP 112/70; PULSE 72; RESP 17; TEMP 98
[2018-01-23 15:04] VITALS: O2SAT 95
== END 2018-01-23 15:18 | disposition home or self-care (01) ==
LOC: C.ER 11:35
DX: F10.129 Alcohol abuse with intoxication, unspecified (principal); I10 Essential (primary) hypertension

== ENCOUNTER 2018-02-05 21:25 | Emergency (ER) | payer SELFPAY ==
[2018-02-05 21:25] VITALS: BMI 28.5
--- NOTE | 2018-02-05 23:31 | C.PDOC ---
History Of Present Illness 62 year old male is brought to the ED from [facility] for alcohol intoxication. Patient admits to drinking alcohol and wants a place to stay. Patient denies SI/HI, hallucinations, other complaints. Time Seen by Provider: 02/05/18 23:30 Chief Complaint (Nursing): Substance Abuse History Per: Patient History/Exam Limitations: no limitations, intoxication Onset/Duration Of Symptoms: Hrs Current Symptoms Are (Timing): Still Present Suicide/Self Injury Attempted (Context): None Modifying Factor(s): Alcohol Associated Symptoms: denies: Depression, Suicidal Thoughts, Suicidal Plan Recent travel outside of the [place]: No Additional History Per: Patient, EMS Past Medical History Reviewed: Historical Data, Nursing Documentation, Vital Signs Vital Signs: Last Vital Signs Temp 97.8 F 02/06/18 04:43 Pulse 71 02/06/18 04:43 Resp 16 02/06/18 04:43 BP 128/83 02/06/18 04:43 Pulse Ox 97 02/06/18 04:43 - Medical History PMH: HTN Denies: Diabetes, Hepatitis, HIV, Seizures, Sexually Transmitted Disease Surgical History: No Surg Hx - [facility] Procedures ASSISTANCE WITH RESPIRATORY VENTILATION, 24-96 HRS, CPAP (08/13/16) DETOXIFICATION SERVICES FOR SUBSTANCE ABUSE TREATMENT (08/13/16) Family History: States: Unknown Family Hx - Social History Hx Alcohol Use: Yes Hx Substance Use: No - Immunization History Hx Tetanus Toxoid Vaccination: No Hx Influenza Vaccination: No Hx Pneumococcal Vaccination: No Review Of Systems Constitutional: Negative for: Fever, Chills Cardiovascular: Negative for: Chest Pain Respiratory: Negative for: Shortness of Breath Gastrointestinal: Negative for: Nausea, Vomiting Psych: Negative for: Depression, Suicidal ideation Physical Exam - Physical Exam Appears: Non-toxic, No Acute Distress Skin: Warm, Dry Head: Normacephalic Eye(s): bilateral: Normal Inspection Neck: Supple Chest: Symmetrical Cardiovascular: Rhythm Regular Respiratory: No Rales, No Rhonchi, No Wheezing Gastrointestinal/Abdominal: Soft, No Tenderness, No Guarding, No Rebound Extremity: No Tenderness, No Swelling Extremity: Bilateral: Atraumatic, Normal Color And Temperature, Normal ROM Neurological/Psych: Oriented x3, Normal Speech Gait: Steady ED Course And Treatment O2 Sat by Pulse Oximetry: 98 (ON RA) Pulse Ox Interpretation: Normal Reevaluation Time: 05:13 Reassessment Condition: Improved Disposition Counseled Patient/Family Regarding: Studies Performed, Diagnosis, Need For Followup - Disposition Referrals: [facility] at [facility] [Outside] Disposition: HOME/ ROUTINE Disposition Time: 23:30 Condition: FAIR Instructions: Alcohol Abuse and Alcoholism (DC) Forms: [employer] (Persian) - Clinical Impression Clinical Impression: Alcohol intoxication - Scribe Statement The provider has reviewed the documentation as recorded by the Scribe Lopez Basurto All medical record entries made by the Scribe were at my direction and personally dictated by me. I have reviewed the chart and agree that the record accurately reflects my personal performance of the history, physical exam, medical decision making, and the department course for this patient. I have also personally directed, reviewed, and agree with the discharge instructions and disposition.
[2018-02-06 04:44] VITALS: RESP 16
[2018-02-06 05:42] VITALS: BP 121/77; PULSE 90; TEMP 98; O2SAT 100
== END 2018-02-06 05:42 | disposition home or self-care (01) ==
LOC: C.ER 21:25
DX: F10.129 Alcohol abuse with intoxication, unspecified (principal); Y90.9 Presence of alcohol in blood, level not specified

== ENCOUNTER 2018-04-11 17:05 | Emergency (ER) | payer OTHER ==
[2018-04-11 17:05] VITALS: BMI 28.5
[2018-04-11 17:38] VITALS: BP 137/87; PULSE 78; RESP 18; TEMP 97.9; O2SAT 96
--- NOTE | 2018-04-11 17:51 | C.PDOC ---
History Of Present Illness 62 year old male presents to the ED BIBA for public alcohol intoxication. Denies any SI/HI or depression. Patient got up the wheelchair and walked to the waiting room and then back to the ED bed. Time Seen by Provider: 04/11/18 17:48 Chief Complaint (Nursing): Substance Abuse History Per: Patient, EMS History/Exam Limitations: intoxication Onset/Duration Of Symptoms: Hrs Current Symptoms Are (Timing): Still Present Suicide/Self Injury Attempted (Context): None Modifying Factor(s): Alcohol Associated Symptoms: denies: Depression, Suicidal Thoughts, Suicidal Plan Additional History Per: EMS Past Medical History Reviewed: Historical Data, Nursing Documentation, Vital Signs Vital Signs: Last Vital Signs Temp 97.9 F 04/11/18 17:37 Pulse 78 04/11/18 17:37 Resp 18 04/11/18 17:37 BP 137/87 04/11/18 17:37 Pulse Ox 96 04/11/18 17:37 - Medical History PMH: HTN Denies: Diabetes, Hepatitis, HIV, Seizures, Sexually Transmitted Disease Surgical History: Denies: No Surg Hx - [facility] Procedures ASSISTANCE WITH RESPIRATORY VENTILATION, 24-96 HRS, CPAP (08/13/16) DETOXIFICATION SERVICES FOR SUBSTANCE ABUSE TREATMENT (08/13/16) Family History: States: No Known Family Hx - Social History Hx Alcohol Use: Yes Hx Substance Use: No - Immunization History Hx Tetanus Toxoid Vaccination: No Hx Influenza Vaccination: No Hx Pneumococcal Vaccination: No Review Of Systems Except As Marked, All Systems Reviewed And Found Negative. Constitutional: Negative for: Fever, Chills Psych: Negative for: Depression, Suicidal ideation Physical Exam - Physical Exam Appears: Non-toxic, Other (easily arousable, alcohol on breath ) Skin: Warm, Dry, No Rash Head: Atraumatic, Normacephalic Eye(s): bilateral: Normal Inspection Nose: Normal Oral Mucosa: Moist Throat: No Erythema, No Exudate Neck: Normal ROM, Supple Chest: Symmetrical Cardiovascular: Rhythm Regular Respiratory: Normal Breath Sounds, No Rales, No Rhonchi, No Wheezing Gastrointestinal/Abdominal: Soft, No Tenderness Extremity: Bilateral: Atraumatic, Normal Color And Temperature, Normal ROM Neurological/Psych: Oriented x3, Normal Speech Gait: Steady ED Course And Treatment O2 Sat by Pulse Oximetry: 96 (RA) Pulse Ox Interpretation: Normal Medical Decision Making Medical Decision Making: typical alcohol abuse easily arousable halfway placement info given Disposition Doctor Will See Patient In The: Office Counseled Patient/Family Regarding: Studies Performed, Diagnosis - Disposition Referrals: [facility] [Outside] [facility] [Outside] [facility] [Outside] [facility] [Outside] [facility] [Outside] Disposition: HOME/ ROUTINE Disposition Time: 17:50 Condition: GOOD Additional Instructions: seek nightly halfway placement Instructions: Alcohol Abuse and Alcoholism (DC) Forms: [employer] (Estonian) - Clinical Impression Clinical Impression: Alcohol abuse - Scribe Statement The provider has reviewed the documentation as recorded by the Scribe Tegan Santizo All medical record entries made by the Scribe were at my direction and personally dictated by me. I have reviewed the chart and agree that the record accurately reflects my personal performance of the history, physical exam, medical decision making, and the department course for this patient. I have also personally directed, reviewed, and agree with the discharge instructions and disposition.
== END 2018-04-11 17:55 | disposition home or self-care (01) ==
LOC: C.ER 17:05
DX: F10.10 Alcohol abuse, uncomplicated (principal)

== ENCOUNTER 2018-04-15 18:14 | Emergency (ER) | payer MEDICAID ==
[2018-04-15 18:15] VITALS: BMI 28.5
--- NOTE | 2018-04-15 20:42 | C.PDOC ---
History Of Present Illness 62 y/o male brought to ER by ambulance for ETOH intoxication. Patient states that he was drinking ETOH today. Patient denies having falls, injuries, suicidal ideation, and homicidal ideation. Time Seen by Provider: 04/15/18 19:27 Chief Complaint (Nursing): Substance Abuse History Per: Patient History/Exam Limitations: no limitations Onset/Duration Of Symptoms: Hrs Current Symptoms Are (Timing): Still Present Severity: Moderate Past Medical History Reviewed: Historical Data, Nursing Documentation, Vital Signs Vital Signs: Last Vital Signs Temp 98.1 F 04/15/18 18:20 Pulse 85 04/15/18 19:23 Resp 14 04/15/18 19:23 BP 140/95 H 04/15/18 19:23 Pulse Ox 96 04/15/18 19:23 - Medical History PMH: HTN Denies: Diabetes, Hepatitis, HIV, Seizures, Sexually Transmitted Disease Surgical History: No Surg Hx - [facility] Procedures ASSISTANCE WITH RESPIRATORY VENTILATION, 24-96 HRS, CPAP (08/13/16) DETOXIFICATION SERVICES FOR SUBSTANCE ABUSE TREATMENT (08/13/16) Family History: States: No Known Family Hx - Social History Hx Alcohol Use: Yes Hx Substance Use: No - Immunization History Hx Tetanus Toxoid Vaccination: No Hx Influenza Vaccination: No Hx Pneumococcal Vaccination: No Review Of Systems Except As Marked, All Systems Reviewed And Found Negative. Constitutional: Negative for: Fever, Chills Psych: Negative for: Suicidal ideation Physical Exam - Physical Exam Appears: Other (intoxicated) Skin: Normal Color, Warm, Dry Head: Atraumatic, Normacephalic Eye(s): bilateral: Normal Inspection Nose: Normal Oral Mucosa: Moist Neck: Supple Chest: Symmetrical Cardiovascular: Rhythm Regular Respiratory: Normal Breath Sounds, No Rales, No Rhonchi, No Wheezing Gastrointestinal/Abdominal: Normal Exam, Soft, No Tenderness, No Guarding, No Rebound Neurological/Psych: Oriented x3, Normal Speech ED Course And Treatment O2 Sat by Pulse Oximetry: 96 (RA) Pulse Ox Interpretation: Normal Disposition Counseled Patient/Family Regarding: Diagnosis, Need For Followup - Disposition Referrals: [facility] at [facility] [Outside] Disposition: HOME/ ROUTINE Disposition Time: 21:00 Condition: STABLE Additional Instructions: FOLLOW UP WITH YOUR DOCTOR/CLINIC IN 1-2 DAYS RETURN TO ER IF SYMPTOMS WORSEN Instructions: Alcohol Abuse and Alcoholism (DC) Forms: [employer] (Grenadian) Print Language: PASHTO - Clinical Impression Clinical Impression: Alcohol abuse - Scribe Statement The provider has reviewed the documentation as recorded by the Mirzaibe Christiano Vo Provider Attestation: All medical record entries made by the Mirzaibe were at my direction and personally dictated by me. I have reviewed the chart and agree that the record accurately reflects my personal performance of the history, physical exam, medical decision making, and the department course for this patient. I have also personally directed, reviewed, and agree with the discharge instructions and disposition.
[2018-04-15 21:06] VITALS: BP 143/92; PULSE 87; RESP 18; TEMP 98; O2SAT 97
== END 2018-04-15 21:00 | disposition home or self-care (01) ==
LOC: C.ER 18:14
DX: F10.129 Alcohol abuse with intoxication, unspecified (principal); Y90.9 Presence of alcohol in blood, level not specified

== ENCOUNTER 2018-04-25 21:14 | Emergency (ER) | payer MEDICAID ==
[2018-04-25 21:15] VITALS: BMI 28.5
--- NOTE | 2018-04-25 22:02 | C.PDOC ---
History Of Present Illness 62 year old male is brought to the ED by EMS for public intoxication. Patient was found in [facility] inebriated. Patient admits to drinking alcohol today. Patient denies SI/HI, hallucinations, CP, SOB, injury, fall, trauma. Time Seen by Provider: 04/25/18 22:02 Chief Complaint (Nursing): Substance Abuse History Per: Patient, EMS History/Exam Limitations: intoxication Onset/Duration Of Symptoms: Hrs Current Symptoms Are (Timing): Still Present Suicide/Self Injury Attempted (Context): None Modifying Factor(s): Alcohol Associated Symptoms: denies: Depression, Suicidal Thoughts Recent travel outside of the [place]: No Additional History Per: Patient Past Medical History Reviewed: Historical Data, Nursing Documentation, Vital Signs Vital Signs: Last Vital Signs Temp 97.6 F 04/25/18 21:17 Pulse 82 04/25/18 21:17 Resp 16 04/25/18 21:17 BP 136/88 04/25/18 21:17 Pulse Ox 96 04/25/18 21:17 - Medical History PMH: HTN Denies: Diabetes, Hepatitis, HIV, Seizures, Sexually Transmitted Disease Surgical History: No Surg Hx - [facility] Procedures ASSISTANCE WITH RESPIRATORY VENTILATION, 24-96 HRS, CPAP (08/13/16) DETOXIFICATION SERVICES FOR SUBSTANCE ABUSE TREATMENT (08/13/16) Family History: States: Unknown Family Hx - Social History Hx Alcohol Use: Yes Hx Substance Use: No - Immunization History Hx Tetanus Toxoid Vaccination: No Hx Influenza Vaccination: No Hx Pneumococcal Vaccination: No Review Of Systems Constitutional: Negative for: Fever, Chills Eyes: Negative for: Vision Change Cardiovascular: Negative for: Chest Pain Respiratory: Negative for: Shortness of Breath Gastrointestinal: Negative for: Nausea, Vomiting, Abdominal Pain Neurological: Negative for: Weakness, Numbness Psych: Negative for: Depression, Suicidal ideation Physical Exam - Physical Exam Appears: Non-toxic, No Acute Distress, Other (AOB) Skin: Warm, Dry Head: Normacephalic Eye(s): bilateral: Normal Inspection Teeth: No Normal Dentition (poor dentition ) Neck: Supple Chest: Symmetrical Cardiovascular: Rhythm Regular Respiratory: No Rales, No Rhonchi, No Wheezing Gastrointestinal/Abdominal: Soft, No Tenderness, No Guarding, No Rebound, Hernia (midline small) Extremity: Left: Other (2.5 cm old laceration to hypothenar aspect. No purulent material seen), Bilateral: Atraumatic, Normal Color And Temperature, Normal ROM Neurological/Psych: Oriented x3, Normal Speech, Normal Cognition Gait: Steady ED Course And Treatment O2 Sat by Pulse Oximetry: 96 (ON RA) Pulse Ox Interpretation: Normal Reevaluation Time: 05:21 Reassessment Condition: Improved Disposition Counseled Patient/Family Regarding: Studies Performed, Diagnosis - Disposition Referrals: [facility] [Outside] Disposition: HOME/ ROUTINE Disposition Time: 22:02 Condition: FAIR Instructions: Alcohol Abuse and Alcoholism (DC) Forms: [employer] (Amharic) - Clinical Impression Clinical Impression: Alcohol abuse, Alcohol intoxication - Scribe Statement The provider has reviewed the documentation as recorded by the Scribe Lopez Basurto All medical record entries made by the Scribe were at my direction and personally dictated by me. I have reviewed the chart and agree that the record accurately reflects my personal performance of the history, physical exam, medical decision making, and the department course for this patient. I have also personally directed, reviewed, and agree with the discharge instructions and disposition.
[2018-04-26 05:05] VITALS: BP 124/78; PULSE 83; RESP 18; TEMP 97.6
[2018-04-26 05:21] VITALS: O2SAT 96
== END 2018-04-26 05:50 | disposition home or self-care (01) ==
LOC: C.ER 21:14
DX: F10.129 Alcohol abuse with intoxication, unspecified (principal); I10 Essential (primary) hypertension; Z87.891 Personal history of nicotine dependence

== ENCOUNTER 2018-04-28 18:16 | Emergency (ER) | payer MEDICAID ==
[2018-04-28 18:16] VITALS: BMI 28.5
[2018-04-28 18:47] VITALS: TEMP 97.7
--- NOTE | 2018-04-28 19:23 | C.PDOC ---
History Of Present Illness 62 year old male is brought to the ED by EMS for alcohol intoxication. Patient has been seen in the ED previously for similar presentation. Patient denies SI/HI, hallucinations, CP, SOB, injury, fall, trauma. Time Seen by Provider: 04/28/18 19:22 Chief Complaint (Nursing): Substance Abuse History Per: Patient, EMS History/Exam Limitations: intoxication Onset/Duration Of Symptoms: Hrs Current Symptoms Are (Timing): Still Present Suicide/Self Injury Attempted (Context): None Modifying Factor(s): Alcohol Associated Symptoms: denies: Depression, Suicidal Thoughts, Suicidal Plan Recent travel outside of the [place]: No Additional History Per: Patient, EMS Past Medical History Reviewed: Historical Data, Nursing Documentation, Vital Signs Vital Signs: Last Vital Signs Temp 97.7 F 04/28/18 18:46 Pulse 80 04/28/18 18:46 Resp 18 04/28/18 18:46 BP 167/99 H 04/28/18 18:46 Pulse Ox 97 04/28/18 18:46 - Medical History PMH: HTN Denies: Diabetes, Hepatitis, HIV, Seizures, Sexually Transmitted Disease Surgical History: No Surg Hx - [facility] Procedures ASSISTANCE WITH RESPIRATORY VENTILATION, 24-96 HRS, CPAP (08/13/16) DETOXIFICATION SERVICES FOR SUBSTANCE ABUSE TREATMENT (08/13/16) Family History: States: No Known Family Hx - Social History Hx Alcohol Use: Yes Hx Substance Use: No - Immunization History Hx Tetanus Toxoid Vaccination: No Hx Influenza Vaccination: No Hx Pneumococcal Vaccination: No Review Of Systems Constitutional: Negative for: Fever, Chills Eyes: Negative for: Vision Change Cardiovascular: Negative for: Chest Pain Respiratory: Negative for: Shortness of Breath Gastrointestinal: Negative for: Nausea, Vomiting, Abdominal Pain Skin: Negative for: Rash Psych: Negative for: Depression, Suicidal ideation Physical Exam - Physical Exam Appears: Non-toxic, No Acute Distress Skin: Warm, Dry Head: Normacephalic Eye(s): bilateral: Normal Inspection Teeth: No Normal Dentition (poor) Neck: Supple Chest: Symmetrical Cardiovascular: Rhythm Regular Respiratory: No Rales, No Rhonchi, No Wheezing Gastrointestinal/Abdominal: Soft, No Tenderness, No Guarding, No Rebound Extremity: Bilateral: Atraumatic, Normal Color And Temperature, Normal ROM Neurological/Psych: Oriented x3, Normal Speech, Normal Cognition Gait: Steady ED Course And Treatment - Laboratory Results Result Diagrams: 04/28/18 22:26 04/28/18 22:24 O2 Sat by Pulse Oximetry: 97 (ON RA) Pulse Ox Interpretation: Normal Reevaluation Time: 05:41 Reassessment Condition: Improved Disposition Counseled Patient/Family Regarding: Studies Performed, Diagnosis, Need For Followup - Disposition Referrals: [facility] [Outside] Disposition: HOME/ ROUTINE Disposition Time: 19:23 Condition: FAIR Instructions: Alcohol Abuse and Alcoholism (DC) Forms: [employer] (Occitan) - Clinical Impression Clinical Impression: Alcohol abuse, Alcohol intoxication - Scribe Statement The provider has reviewed the documentation as recorded by the Scribe Lopez Basurto All medical record entries made by the Scribe were at my direction and personally dictated by me. I have reviewed the chart and agree that the record accurately reflects my personal performance of the history, physical exam, medical decision making, and the department course for this patient. I have also personally directed, reviewed, and agree with the discharge instructions and disposition.
[2018-04-28] MEDS ORDERED: Midazolam 5 MG/5 ML VIAL IM STA (20:46)
[2018-04-28] MEDS ORDERED: Midazolam 2 MG/2 ML VIAL ONE ×2 (20:52→22:20)
[2018-04-28] MEDS ORDERED: Midazolam 2 MG/2 ML VIAL IM STA (22:15)
[2018-04-28 22:35] LABS: BASO # 0.1 K/uL (0.0-0.2); BASO % 1.2 % (0.0-2.0); EOS # 0.1 K/uL (0.0-0.7); EOS % 1.4 % (0.0-4.0); HEMOGLOBIN 13.5 g/dL (12.0-18.0); LYMPH # 1.9 K/uL (1.0-4.3); LYMPH % 41.2 % (20.0-40.0); MEAN CELL VOLUME 97.6 fL (80.0-94.0); MEAN CORPUSCULAR HEMOGLOBIN 32.4 pg (27.0-31.0); MEAN CORPUSCULAR HGB CONC 33.2 g/dL (33.0-37.0); MEAN PLATELET VOLUME 8.3 fL (7.2-11.7); MONO # 0.6 K/uL (0.0-0.8); MONO % 13.9 % (0.0-10.0); NEUT # 1.9 K/uL (1.8-7.0); NEUT % 42.3 % (50.0-75.0); NRBC % 0.1 % (0.0-2.0); RBC 4.18 Mil/uL (4.40-5.90); RED CELL DISTRIBUTION WIDTH 13.3 % (11.5-14.5); WHITE BLOOD COUNT 4.5 K/uL (4.8-10.8)
[2018-04-28 22:52] LABS: ALB/GLOB RATIO 1.2 (1.0-2.1); ALBUMIN 4.4 g/dL (3.5-5.0); ALT/SGPT 40 U/L (21-72); AST/SGOT 49 U/L (17-59); BLOOD UREA NITROGEN 7 mg/dL (9-20); CALCIUM 9.3 mg/dl (8.6-10.4); GFR NON-AFRICAN AMERICAN > 60
[2018-04-29 04:07] LABS: SQUAMOUS EPITHIAL < 1 /hpf (0-5); URINE BILIRUBIN NEGATIVE (NEGATIVE); URINE CLARITY Clear (Clear); URINE COLOR Straw (YELLOW); URINE GLUCOSE (UA) NORMAL (Normal); URINE LEUKOCYTE ESTERASE NEG Leu/uL (Negative); URINE PROTEIN NEGATIVE (NEGATIVE); URINE UROBILINOGEN NORMAL mg/dL (0.2-1.0)
[2018-04-29 04:09] LABS: URINE BLOOD TRACE (NEGATIVE)
[2018-04-29 04:22] LABS: BARBITURATES, UR NEGATIVE (NEGATIVE); OPIATES, UR NEGATIVE (NEGATIVE); PHENCYCLIDINE, UR NEGATIVE (NEGATIVE)
[2018-04-29 04:36] LABS: BENZODIAZEPINES, UR POSITIVE (NEGATIVE)
[2018-04-29 05:42] VITALS: O2SAT 97
[2018-04-29 06:24] VITALS: BP 116/77; PULSE 75; RESP 16
--- NOTE | 2018-04-29 08:02 | RAD ---
Date of service: 04/29/2018 PROCEDURE: HISTORY: pain on ambulation COMPARISON: None TECHNIQUE: AP pelvis and frog's leg view. FINDINGS: No fracture or lytic lesion appreciated. Inferior lumbar spine spondylosis present. Bilateral sacroiliac pubic symphyseal mild sclerotic arthropathic changes. Bilateral hip joint space narrowing especially along each superolateral aspect. Bilateral acetabular spurring-also most pronounced along each superolateral aspect.. Bilateral superior acetabular coalescence subchondral cystic changes are coalescent on the right greater bordering sclerosis on the right. Right hemipelvic [id number] consideration. IMPRESSION: No fracture or lytic lesion. Bilateral hip arthrosis-as detailed above. Other findings as above.
--- NOTE | 2018-04-29 08:55 | CT ---
Date of service: 04/28/2018 PROCEDURE: CT HEAD WITHOUT CONTRAST. HISTORY: Alcohol abuse COMPARISON: 12/20/2017 TECHNIQUE: Axial computed tomography images were obtained through the head/brain without intravenous contrast. Radiation dose: Total exam DLP = 2196.59 mGy-cm. This CT exam was performed using one or more of the following dose reduction techniques: Automated exposure control, adjustment of the mA and/or kV according to patient size, and/or use of iterative reconstruction technique. FINDINGS: HEMORRHAGE: No intracranial hemorrhage. BRAIN: No mass effect or edema. Scattered focal lucencies in the subcortical and periventricular white matter suggestive for chronic microvascular ischemic change. VENTRICLES: Unremarkable. No hydrocephalus. CALVARIUM: Postsurgical changes the right mandibular ramus. Postsurgical changes noted at the anterior midline mandible. 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 PARANASAL SINUSES: Moderate to severe mucosal thickening of the bilateral maxillary sinuses. Moderate mucosal thickening of the ethmoid air cells. MASTOID AIR CELLS: Unremarkable as visualized. No inflammatory changes. OTHER FINDINGS: Soft tissue swelling overlying the left maxilla. IMPRESSION: No acute intracranial abnormality. Chronic microvascular ischemic changes. Sinus mucosal disease. Postsurgical changes at the right posterior mandible and anterior midline mandible. If symptoms persists, consider correlation MRI. A preliminary report was generated at 2:26 a.m. on 04/29/[address] Garfield Short from [employer].
== END 2018-04-29 07:12 | disposition home or self-care (01) ==
LOC: C.ER 18:16
DX: F10.129 Alcohol abuse with intoxication, unspecified (principal); Y90.8 Blood alcohol level of 240 mg/100 ml or more
CPT/HCPCS: 70450; 73503; 80053; 80320; 80324; 80345; 80346; 80349; 80353; 80358; 80361; 81001; 82948; 83735; 83992; 84100; 85025; 96372; 99285; J2250

== ENCOUNTER 2018-04-29 20:14 | Emergency (ER) | payer MEDICAID ==
[2018-04-29 20:14] VITALS: BMI 28.5
--- NOTE | 2018-04-29 20:49 | C.PDOC ---
History Of Present Illness 62 year old male presents to the ED via EMS for alcohol intoxication. Unable to obtain a history secondary to patient's intoxicated state. The patient offers no medical complaints at this time. <Natalia Shearer - Last Filed: 04/30/18 00:46> History Per: Patient History/Exam Limitations: intoxication <Natalia Shearer - Last Filed: 04/30/18 00:46> <Solomon Monson - Last Filed: 04/30/18 06:33> <Leny Kennedy - Last Filed: 04/30/18 07:13> Time Seen by Provider: 04/29/18 20:21 Chief Complaint (Nursing): Substance Abuse Past Medical History Reviewed: Historical Data, Nursing Documentation, Vital Signs Vital Signs: Last Vital Signs Temp 97.6 F 04/29/18 20:19 Pulse 92 H 04/29/18 20:19 Resp 20 04/29/18 20:19 BP 150/92 H 04/29/18 20:19 Pulse Ox 94 L 04/29/18 20:19 - Medical History PMH: HTN Denies: Diabetes, Hepatitis, HIV, Seizures, Sexually Transmitted Disease - [facility] Procedures ASSISTANCE WITH RESPIRATORY VENTILATION, 24-96 HRS, CPAP (08/13/16) DETOXIFICATION SERVICES FOR SUBSTANCE ABUSE TREATMENT (08/13/16) Family History: States: Unknown Family Hx - Social History Hx Alcohol Use: Yes Hx Substance Use: No - Immunization History Hx Tetanus Toxoid Vaccination: No Hx Influenza Vaccination: No Hx Pneumococcal Vaccination: No <ManfredNatalia Lewis - Last Filed: 04/30/18 00:46> Vital Signs: Last Vital Signs Temp 97.6 F 04/29/18 20:19 Pulse 62 04/30/18 05:56 Resp 18 04/30/18 05:56 BP 123/79 04/30/18 05:56 Pulse Ox 100 04/30/18 05:56 - [facility] Procedures ASSISTANCE WITH RESPIRATORY VENTILATION, 24-96 HRS, CPAP (08/13/16) DETOXIFICATION SERVICES FOR SUBSTANCE ABUSE TREATMENT (08/13/16) <Solomon Monson - Last Filed: 04/30/18 06:33> Vital Signs: Last Vital Signs Temp 97.6 F 04/29/18 20:19 Pulse 62 12/05/18 05:56 Resp 18 04/30/18 05:56 BP 123/79 04/30/18 05:56 Pulse Ox 100 04/30/18 05:56 - [facility] Procedures ASSISTANCE WITH RESPIRATORY VENTILATION, 24-96 HRS, CPAP (08/13/16) DETOXIFICATION SERVICES FOR SUBSTANCE ABUSE TREATMENT (08/13/16) <Leny Kennedy - Last Filed: 04/30/18 07:13> Review Of Systems Review Of Systems: ROS cannot be obtained secondary to pt's inabilty to answer questions. (secondary to patient's intoxicated state.) <ManfredNatalia Joshua - Last Filed: 04/30/18 00:46> Physical Exam - Physical Exam Appears: Toxic, Other (excessively lethargic. disheveled. unkept. ) Skin: Warm, Diaphoretic Head: Atraumatic, Normacephalic Eye(s): bilateral: Other ((+) injected conjunctiva.) Lips: Normal Appearing Neck: Normal ROM, Trachea Midline Chest: Symmetrical Cardiovascular: Rhythm Regular, No Murmur Respiratory: Normal Breath Sounds, No Accessory Muscle Use Gastrointestinal/Abdominal: Soft, No Tenderness Back: Normal Inspection Extremity: Normal ROM, No Deformity Neurological/Psych: Other (slurred speach.) Gait: Unsteady <Jonna Shearerissa Joshua - Last Filed: 04/30/18 00:46> ED Course And Treatment O2 Sat by Pulse Oximetry: 94 (RA) <Shearer,Natalia Lewis - Last Filed: 04/30/18 00:46> Reevaluation Time: 07:13 Reassessment Condition: Improved (PT CLEAR SPEECH AND THOUGHT, STEADY GAIT. AO3, NO S/S ACUTE INTOX.) <BrentLeny - Last Filed: 04/30/18 07:13> Progress - Re-Evaluation Re-evaluation Note: 04/30/18 07:00 S/O FROM DR MONSON. PENDING SOBRIETY SP ETOH INTOX <BrentLeny Marshall Last Filed: 04/30/18 07:13> Medical Decision Making Medical Decision Making: Impression: alcohol intoxication. Initially pt had attempted to get out of stretcher but was very unsteady. He was redirected and slept in bed. However he awoke again and was still unsteady. This time staff unable to redirect him and pt continued to try to get up. Pt medicated for agitation and restrained for safety. 1:1 observation initiated. <Natalia Shearer - Last Filed: 04/30/18 00:46> Disposition <Natalia Shearer - Last Filed: 04/30/18 00:46> Counseled Patient/Family Regarding: Diagnosis - Disposition Disposition Time: 07:00 <Solomon Monson - Last Filed: 04/30/18 06:33> Counseled Patient/Family Regarding: Diagnosis, Need For Followup - Disposition Disposition Time: 07:13 <Leny Kennedy - Last Filed: 04/30/18 07:13> - Disposition Referrals: [facility] [Outside] Disposition: HOME/ ROUTINE Condition: IMPROVED Instructions: Alcohol Abuse and Alcoholism (DC) Forms: [employer] (Polish) - Clinical Impression Clinical Impression: Alcohol intoxication - Scribe Statement The provider has reviewed the documentation as recorded by the Scribe (Tiffani Blood) Provider Attestation: All medical record entries made by the Scribe were at my direction and personally dictated by me. I have reviewed the chart and agree that the record accurately reflects my personal performance of the history, physical exam, medical decision making, and the department course for this patient. I have also personally directed, reviewed, and agree with the discharge instructions and disposition. <Natalia Shearer - Last Filed: 04/30/18 00:46>
[2018-04-30 04:56] VITALS: RESP 18
[2018-04-30 07:45] VITALS: BP 132/78; PULSE 82; TEMP 98.3; O2SAT 99
== END 2018-04-30 07:32 | disposition home or self-care (01) ==
LOC: C.ER 20:14
DX: F10.129 Alcohol abuse with intoxication, unspecified (principal); I10 Essential (primary) hypertension; Z87.891 Personal history of nicotine dependence
CPT/HCPCS: 80320; 82948; 96372; 99285; J1630; J2060

== ENCOUNTER 2018-05-01 17:32 | Emergency (ER) | payer MEDICAID ==
[2018-05-01 17:32] VITALS: BMI 28.5
--- NOTE | 2018-05-01 18:11 | C.PDOC ---
History Of Present Illness 62 year old male with PMH of HTN and alcohol abuse presents to the ED via EMS for public intoxication. The patient admits to drinking 3-4 cans of beer today, denies drug use. Pt is known to the ED and has had multiple visits for similar complaints, last 04/29/18. Offers no medical complaints at this time. <Brooke Hernandez - Last Filed: 05/01/18 21:13> History Per: Patient, EMS History/Exam Limitations: intoxication Current Symptoms Are (Timing): Still Present Suicide/Self Injury Attempted (Context): None Modifying Factor(s): Alcohol <Brooke Hernandez - Last Filed: 05/01/18 21:13> <Briana Pedraza - Last Filed: 05/02/18 05:37> Time Seen by Provider: 05/01/18 17:50 Chief Complaint (Nursing): Substance Abuse Past Medical History Reviewed: Historical Data, Nursing Documentation, Vital Signs Vital Signs: Last Vital Signs Temp 98.1 F 05/01/18 17:45 Pulse 87 05/01/18 17:45 Resp 20 05/01/18 17:45 BP 121/78 05/01/18 17:45 Pulse Ox 96 05/01/18 17:45 - Medical History PMH: HTN Denies: Diabetes, Hepatitis, HIV, Seizures, Sexually Transmitted Disease - [facility] Procedures ASSISTANCE WITH RESPIRATORY VENTILATION, 24-96 HRS, CPAP (08/13/16) DETOXIFICATION SERVICES FOR SUBSTANCE ABUSE TREATMENT (08/13/16) Family History: States: Unknown Family Hx - Social History Hx Alcohol Use: Yes Hx Substance Use: No - Immunization History Hx Tetanus Toxoid Vaccination: No Hx Influenza Vaccination: No Hx Pneumococcal Vaccination: No <Brooke Hernandez - Last Filed: 05/01/18 21:13> Vital Signs: Last Vital Signs Temp 97.8 F 05/02/18 03:48 Pulse 74 05/02/18 03:48 Resp 12 05/02/18 03:48 BP 110/84 05/02/18 03:48 Pulse Ox 95 05/02/18 03:48 - [facility] Procedures ASSISTANCE WITH RESPIRATORY VENTILATION, 24-96 HRS, CPAP (08/13/16) DETOXIFICATION SERVICES FOR SUBSTANCE ABUSE TREATMENT (08/13/16) <Briana Pedraza - Last Filed: 05/02/18 05:37> Review Of Systems Except As Marked, All Systems Reviewed And Found Negative. (limited secondary to intoxication.) Constitutional: Negative for: Fever, Chills Eyes: Negative for: Vision Change Cardiovascular: Negative for: Chest Pain, Palpitations, Light Headedness Respiratory: Negative for: Cough, Shortness of Breath Gastrointestinal: Negative for: Nausea, Vomiting, Abdominal Pain Musculoskeletal: Negative for: Neck Pain, Back Pain Skin: Negative for: Rash Neurological: Negative for: Weakness, Numbness, Seizures, Headache, Dizziness <Brooke Hernandez - Last Filed: 05/01/18 21:13> Physical Exam - Physical Exam Appears: No Acute Distress, Unkempt, Other (intoxicated.) Skin: Warm, Dry Head: Atraumatic, Normacephalic Eye(s): bilateral: Normal Inspection Nose: Normal Oral Mucosa: Moist Neck: Normal ROM, Trachea Midline, Supple Chest: Symmetrical, No Deformity Cardiovascular: Rhythm Regular, No Murmur Respiratory: Normal Breath Sounds, No Rales, No Rhonchi, No Wheezing Gastrointestinal/Abdominal: Normal Exam, Soft, No Tenderness Back: Normal Inspection, No Vertebral Tenderness, No Paraspinal Tenderness Extremity: Normal ROM Extremity: Bilateral: Normal Color And Temperature, Normal ROM Pulses: Left Radial: Normal, Right Radial: Normal Neurological/Psych: Oriented x3, Normal Speech, Normal Cognition, Normal Motor, Normal Sensation Gait: Unsteady <Brooke Hernandez - Last Filed: 05/01/18 21:13> ED Course And Treatment O2 Sat by Pulse Oximetry: 96 (RA) Pulse Ox Interpretation: Normal <Brooke Hernandez - Last Filed: 05/01/18 21:13> Pulse Ox Interpretation: Normal Reevaluation Time: 05:37 Reassessment Condition: Improved <Briana Pedraza - Last Filed: 05/02/18 05:37> Medical Decision Making Medical Decision Making: Initial Plan: * Reassess and Disposition On initial evaluation, patient visibly intoxicated. Able to tell me his name, , age, and location. A&Ox3. Unsteady gait. No physical complaints. Patient care transferred to Dr. Pedraza, pending sobriety, reassessment and disposition. Pt sleeping soundly in stretcher with stable vital signs at this time. <Brooke Hernandez - Last Filed: 12/06/18 21:13> Disposition - Disposition Disposition Time: 19:00 <Brooke Hernandez - Last Filed: 05/01/18 21:13> Counseled Patient/Family Regarding: Studies Performed, Diagnosis, Need For Followup <Briana Pedraza - Last Filed: 05/02/18 05:37> - Disposition Referrals: [facility] [Outside] Condition: FAIR Instructions: Alcohol Abuse and Alcoholism (DC) - Clinical Impression Clinical Impression: Alcohol intoxication - PA / JOB TRAINING SPECIALIST / Resident Statement MD/DO has reviewed & agrees with the documentation as recorded. - Scribe Statement The provider has reviewed the documentation as recorded by the Scribe (Tiffani Blood) All medical record entries made by the Scribe were at my direction and personally dictated by me. I have reviewed the chart and agree that the record accurately reflects my personal performance of the history, physical exam, medical decision making, and the department course for this patient. I have also personally directed, reviewed, and agree with the discharge instructions and disposition. <Brooke Hernandez - Last Filed: 05/01/18 21:13>
[2018-05-02 03:51] VITALS: O2SAT 95
[2018-05-02 05:56] VITALS: BP 110/82; PULSE 64; RESP 14; TEMP 97.6
== END 2018-05-02 06:10 | disposition home or self-care (01) ==
LOC: C.ER 17:32
DX: F10.129 Alcohol abuse with intoxication, unspecified (principal); I10 Essential (primary) hypertension

== ENCOUNTER 2018-05-02 14:42 | Emergency (ER) | payer MEDICAID ==
[2018-05-02 14:42] VITALS: BMI 28.5
--- NOTE | 2018-05-02 15:46 | C.PDOC ---
History Of Present Illness 62 y/o male brought to ER by EMS for ETOH intoxication. Patient states that he is looking for place to stay. Denies having suicidal ideation, homicidal ideation, and active physical complaints. Time Seen by Provider: 05/02/18 14:46 Chief Complaint (Nursing): Substance Abuse History Per: Patient History/Exam Limitations: no limitations Past Medical History Reviewed: Historical Data, Nursing Documentation, Vital Signs Vital Signs: Last Vital Signs Temp 97.6 F 05/02/18 14:58 Pulse 64 05/02/18 14:58 Resp 20 05/02/18 14:58 BP 149/79 05/02/18 14:58 Pulse Ox 97 05/02/18 14:58 - Medical History PMH: HTN Denies: Diabetes, Hepatitis, HIV, Seizures, Sexually Transmitted Disease Surgical History: No Surg Hx - [facility] Procedures ASSISTANCE WITH RESPIRATORY VENTILATION, 24-96 HRS, CPAP (08/13/16) DETOXIFICATION SERVICES FOR SUBSTANCE ABUSE TREATMENT (08/13/16) Family History: States: No Known Family Hx - Social History Hx Alcohol Use: Yes Hx Substance Use: No - Immunization History Hx Tetanus Toxoid Vaccination: No Hx Influenza Vaccination: No Hx Pneumococcal Vaccination: No Review Of Systems Except As Marked, All Systems Reviewed And Found Negative. Constitutional: Negative for: Fever, Chills Psych: Negative for: Suicidal ideation Physical Exam - Physical Exam Additional Physical Exam Comments: Constitutional: No acute distress. Head: Normocephalic. Atraumatic. Eyes: PERRL. ENT: Moist mucous membranes.ETOH on breath. Neck: Supple. Cardiovascular: Regular rate. Radial pulse 2+ bilaterally. Chest: No tenderness. Respiratory: Clear to auscultation bilaterally. GI: Soft. Nontender. Nondistended. Back: No CVA tenderness. Musculoskeletal: No tenderness or swelling of extremities. Skin: No rash. Neurologic: Alert, no focal deficit. ED Course And Treatment O2 Sat by Pulse Oximetry: 97 (RA) Pulse Ox Interpretation: Normal Medical Decision Making Medical Decision Making: Plan: --Glucose POC --Observe for sobriety Disposition - Disposition Disposition: HOME/ ROUTINE Disposition Time: 17:19 Condition: STABLE Instructions: Alcohol Abuse and Alcoholism (DC) Forms: [employer] (Qatari) - Clinical Impression Clinical Impression: Alcohol intoxication - Scribe Statement The provider has reviewed the documentation as recorded by the Scribe Christiano Vo Provider Attestation: All medical record entries made by the Renato were at my direction and personally dictated by me. I have reviewed the chart and agree that the record accurately reflects my personal performance of the history, physical exam, medical decision making, and the department course for this patient. I have also personally directed, reviewed, and agree with the discharge instructions and disposition.
[2018-05-02 19:43] VITALS: RESP 18
[2018-05-03 00:29] VITALS: BP 130/71; PULSE 70; TEMP 98; O2SAT 99
== END 2018-05-03 00:41 | disposition home or self-care (01) ==
LOC: C.ER 14:42
DX: F10.129 Alcohol abuse with intoxication, unspecified (principal); Y90.9 Presence of alcohol in blood, level not specified

== ENCOUNTER 2018-08-23 08:06 | Emergency (ER) | payer MEDICAID, OTHER ==
[2018-08-23 08:17] VITALS: BMI 25.1
[2018-08-23 08:18] VITALS: RESP 18
[2018-08-23] MEDS ORDERED: Tetanus/Diphtheria Toxoids 0.5 ml Syringe IM ONE (08:30)
[2018-08-23] MEDS ORDERED: Lidocaine 1% Inj (20ml) INFIL STA (08:31)
[2018-08-23] MEDS ORDERED: Lidocaine Hydrochloride 10 ML INJ ONE (09:27)
[2018-08-23] MEDS ORDERED: Bacitracin 500 Units/gm Oint Foilpak UD TOP ONE (09:41)
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
[2018-08-23 10:18] VITALS: BP 131/65; PULSE 88; TEMP 98
--- NOTE | 2018-08-23 11:18 | RAD ---
Date of service: 08/23/2018 PROCEDURE: Left ring finger radiographs. HISTORY: left digit laceration COMPARISON: None. TECHNIQUE: AP radiograph of the left hand, as well as spot oblique and lateral images of index finger were obtained. 4 views obtained. FINDINGS: LEFT RING FINGER: Left ring finger normal, without fracture of focal lesion. There is small bony protrusion noted at the proximal phalanx of the index finger. Remainder of the left hand (as seen on the AP view) is grossly unremarkable. JOINTS: Normal. SOFT TISSUES: Soft tissue swelling seen. OTHER FINDINGS: None. IMPRESSION: Soft tissue swelling of left ring finger noted. No evidence of acute fracture or dislocation.
[2018-08-23 11:41] VITALS: O2SAT 95
== END 2018-08-23 10:18 | disposition home or self-care (01) ==
LOC: C.ER 08:06
DX: S61.215A Laceration without foreign body of left ring finger without damage to nail, initial encounter (principal); W19.XXXA Unspecified fall, initial encounter; I10 Essential (primary) hypertension; Z23 Encounter for immunization

== ENCOUNTER 2018-08-23 19:18 | Emergency (ER) | payer MEDICAID, OTHER ==
[2018-08-23 19:18] VITALS: BMI 25.1
[2018-08-23 19:33] VITALS: O2SAT 97
--- NOTE | 2018-08-23 19:45 | C.PDOC ---
History Of Present Illness 62 y/o male is brought in by [facility] for public alcohol intoxication. Patient is awake and responding to all questions. He admits to drinking alcohol today. Patient denies any physical complaints at this time. Time Seen by Provider: 08/23/18 19:34 Chief Complaint (Nursing): Substance Abuse History Per: Patient, EMS History/Exam Limitations: no limitations Onset/Duration Of Symptoms: Hrs Current Symptoms Are (Timing): Still Present Past Medical History Reviewed: Historical Data, Nursing Documentation, Vital Signs Vital Signs: Last Vital Signs Temp 97.6 F 08/23/18 19:31 Pulse 58 L 08/23/18 19:31 Resp 74 H 08/23/18 19:31 BP 124/67 08/23/18 19:31 Pulse Ox 97 08/23/18 19:31 - Medical History PMH: HTN Denies: Diabetes, Hepatitis, HIV, Seizures, Sexually Transmitted Disease - [facility] Procedures ASSISTANCE WITH RESPIRATORY VENTILATION, 24-96 HRS, CPAP (08/13/16) DETOXIFICATION SERVICES FOR SUBSTANCE ABUSE TREATMENT (08/13/16) Family History: States: No Known Family Hx - Social History Hx Alcohol Use: Yes Hx Substance Use: No - Immunization History Hx Tetanus Toxoid Vaccination: No Hx Influenza Vaccination: No Hx Pneumococcal Vaccination: No Review Of Systems Except As Marked, All Systems Reviewed And Found Negative. Constitutional: Negative for: Fever, Chills Gastrointestinal: Negative for: Vomiting Psych: Positive for: Other (alcohol intoxication) Physical Exam - Physical Exam Appears: Non-toxic, No Acute Distress Skin: Warm, Dry Head: Atraumatic, Normacephalic Eye(s): bilateral: Normal Inspection Oral Mucosa: Moist Neck: Supple Cardiovascular: Rhythm Regular, No Murmur Respiratory: Normal Breath Sounds, No Rales, No Rhonchi, No Wheezing Extremity: Bilateral: Atraumatic, Normal ROM Neurological/Psych: Oriented x3, Normal Speech ED Course And Treatment O2 Sat by Pulse Oximetry: 97 (RA) Pulse Ox Interpretation: Normal Medical Decision Making Medical Decision Making: well known to er obesrved 6 hoours clinclly sober. steady gait stable for dc Disposition - Disposition Disposition: HOME/ ROUTINE Disposition Time: 19:45 Condition: STABLE Additional Instructions: return to er with worsening symptoms or concerns. Instructions: Alcohol Use - When Is Drinking a Problem? Forms: [employer] (Armenian) - Clinical Impression Clinical Impression: Alcohol abuse - Scribe Statement The provider has reviewed the documentation as recorded by the Scribe Yaneth Rogers Provider Attestation: All medical record entries made by the Mirzaibe were at my direction and personally dictated by me. I have reviewed the chart and agree that the record accurately reflects my personal performance of the history, physical exam, medical decision making, and the department course for this patient. I have also personally directed, reviewed, and agree with the discharge instructions and disposition.
[2018-08-24 00:41] VITALS: BP 130/78; PULSE 84; RESP 14; TEMP 97
== END 2018-08-24 00:43 | disposition home or self-care (01) ==
LOC: C.ER 19:18
DX: F10.129 Alcohol abuse with intoxication, unspecified (principal); I10 Essential (primary) hypertension

== ENCOUNTER 2018-08-25 15:27 | Emergency (ER) | payer MEDICAID, OTHER ==
[2018-08-25 15:32] VITALS: BMI 28.1
--- NOTE | 2018-08-25 16:33 | CT ---
Date of service: 08/25/2018 PROCEDURE: CT HEAD WITHOUT CONTRAST. HISTORY: R/O BLEED S/P FALL +ETOH COMPARISON: Noncontrast head CT performed 04/28/18 TECHNIQUE: Axial computed tomography images were obtained through the head/brain without intravenous contrast. Radiation dose: Total exam DLP = 1157.77 mGy-cm. This CT exam was performed using one or more of the following dose reduction techniques: Automated exposure control, adjustment of the mA and/or kV according to patient size, and/or use of iterative reconstruction technique. FINDINGS: Streak artifact limits evaluation of the skull base. HEMORRHAGE: No intracranial hemorrhage. BRAIN: Diffuse atrophy with prominence of the ventricles and sulci noted. No mass effect or edema. Intracranial atherosclerosis. 7 mm chronic appearing right basal ganglia lacunar infarct. Scattered periventricular and subcortical white matter hypodensities, which are nonspecific, but often seen with chronic microvascular ischemic disease. Please note that MRI with diffusion imaging is more sensitive in the detection of acute ischemic event. VENTRICLES: No hydrocephalus. CALVARIUM: Unremarkable. PARANASAL SINUSES: Unremarkable as visualized. No significant inflammatory changes. MASTOID AIR CELLS: Unremarkable as visualized. No inflammatory changes. OTHER FINDINGS: None. IMPRESSION: Generalized atrophy. Nonspecific white matter changes. 7 mm chronic appearing lacunar type infarct right basal ganglia.
--- NOTE | 2018-08-25 17:53 | C.PDOC ---
History Of Present Illness 62 y/o male brought to ER by ambulance for public intoxication after he was found laying on the ground in [facility]. Patient sates that he was drinking ETOH.Patient denies having suicidal ideation, homicidal ideation, and active physical complaints. Time Seen by Provider: 08/25/18 16:55 Chief Complaint (Nursing): Substance Abuse History Per: Patient History/Exam Limitations: no limitations Past Medical History Reviewed: Historical Data, Nursing Documentation, Vital Signs Vital Signs: Last Vital Signs Temp 97.8 F 08/25/18 15:33 Pulse 87 08/25/18 15:33 Resp 20 08/25/18 15:33 BP 154/87 H 08/25/18 15:33 Pulse Ox 95 08/25/18 15:33 - Medical History PMH: HTN Denies: Diabetes, Hepatitis, HIV, Seizures, Sexually Transmitted Disease Surgical History: No Surg Hx - [facility] Procedures ASSISTANCE WITH RESPIRATORY VENTILATION, 24-96 HRS, CPAP (08/13/16) DETOXIFICATION SERVICES FOR SUBSTANCE ABUSE TREATMENT (08/13/16) Family History: States: No Known Family Hx - Social History Hx Alcohol Use: Yes Hx Substance Use: No - Immunization History Hx Tetanus Toxoid Vaccination: No Hx Influenza Vaccination: No Hx Pneumococcal Vaccination: No Review Of Systems Except As Marked, All Systems Reviewed And Found Negative. Constitutional: Negative for: Fever, Chills Psych: Negative for: Suicidal ideation Physical Exam - Physical Exam Appears: No Acute Distress Skin: Normal Color, Warm, Dry Head: Atraumatic, Normacephalic Eye(s): bilateral: Normal Inspection Nose: Normal Oral Mucosa: Moist, Other (ETOH on breath) Neck: Supple Chest: Symmetrical Cardiovascular: Rhythm Regular Respiratory: Decreased Breath Sounds, No Rales, No Rhonchi, No Wheezing Gastrointestinal/Abdominal: Normal Exam, Soft, No Tenderness, No Guarding, No Rebound Neurological/Psych: Oriented x3, Normal Speech ED Course And Treatment O2 Sat by Pulse Oximetry: 95 (RA') Pulse Ox Interpretation: Normal - CT Scan/US CT-Head Other Rad Studies (CT/US): Read By Radiologist, Radiology Report Reviewed CT/US Interpretation: Date of service: 08/25/2018. PROCEDURE: CT HEAD WITHOUT CONTRAST. HISTORY: R/O BLEED S/P FALL +ETOH. COMPARISON: Noncontrast head CT performed 04/28/18. TECHNIQUE: Axial computed tomography images were obtained through the head/brain without intravenous contrast. Radiation dose: Total exam DLP = 1157.77 mGy-cm. This CT exam was performed using one or more of the following dose reduction techniques: Automated exposure control, adjustment of the mA and/or kV according to patient size, and/or use of iterative reconstruction technique. FINDINGS: Streak artifact limits evaluation of the skull base. HEMORRHAGE: No intracranial hemorrhage. BRAIN: Diffuse atrophy with prominence of the ventricles and sulci noted. No mass effect or edema. Intracranial atherosclerosis. 7 mm chronic appearing right basal ganglia lacunar infarct. Scattered periventricular and subcortical white matter hypodensities, which are nonspecific, but often seen with chronic microvascular ischemic disease. Please note that MRI with diffusion imaging is more sensitive in the detection of acute ischemic event. VENTRICLES: No hydrocephalus. CALVARIUM: Unremarkable. PARANASAL SINUSES: Unremarkable as visualized. No significant inflammatory changes. MASTOID AIR CELLS: Unremarkable as visualized. No inflammatory changes. OTHER FINDINGS: None. IMPRESSION: Generalized atrophy. Nonspecific white matter changes. 7 mm chronic appearing lacunar type infarct right basal ganglia. Medical Decision Making Medical Decision Making: Assessment: ETOH Intoxication Plan: --CT-Head case s/o to Dr. Leny Kennedy pending sobriety, reevaluation and disposition Disposition - Disposition Disposition Time: 19:00 Condition: STABLE Forms: [facility] (Romanian) - Clinical Impression Clinical Impression: Alcohol intoxication - Scribe Statement The provider has reviewed the documentation as recorded by the Mirzaibe Christiano Vo Provider Attestation: All medical record entries made by the Scribe were at my direction and personally dictated by me. I have reviewed the chart and agree that the record accurately reflects my personal performance of the history, physical exam, medical decision making, and the department course for this patient. I have also personally directed, reviewed, and agree with the discharge instructions and disposition.
[2018-08-26] MEDS ORDERED: Permethrin 5% Cream(60 gm) TOP ONE (04:37)
[2018-08-26 05:36] VITALS: BP 129/77; PULSE 68; RESP 16; TEMP 97.8; O2SAT 97
== END 2018-08-26 05:44 | disposition home or self-care (01) ==
LOC: C.ER 15:27
DX: F10.129 Alcohol abuse with intoxication, unspecified (principal); I10 Essential (primary) hypertension

== ENCOUNTER 2018-09-03 16:45 | Emergency (ER) | payer OTHER ==
[2018-09-03 16:45] VITALS: BMI 28.1
--- NOTE | 2018-09-03 18:46 | C.PDOC ---
History Of Present Illness 62 year old male brought to ED by BLS for public intoxication. Patient was found on the street and unable to answer questions. <Lizet Nelson - Last Filed: 09/03/18 19:17> History Per: EMS History/Exam Limitations: intoxication Onset/Duration Of Symptoms: Hrs Current Symptoms Are (Timing): Still Present Suicide/Self Injury Attempted (Context): None Modifying Factor(s): Alcohol <Lizet Nelson - Last Filed: 09/03/18 19:17> <Solomon Kumar - Last Filed: 09/04/18 03:35> Time Seen by Provider: 09/03/18 17:09 Chief Complaint (Nursing): Substance Abuse Past Medical History Reviewed: Historical Data, Nursing Documentation, Vital Signs Vital Signs: Last Vital Signs Temp 97.4 F L 09/03/18 17:02 Pulse 68 09/03/18 17:02 Resp 20 09/03/18 17:02 BP 158/88 H 09/03/18 17:02 Pulse Ox 99 09/03/18 17:02 - Medical History PMH: HTN Denies: Diabetes, Hepatitis, HIV, Seizures, Sexually Transmitted Disease Surgical History: No Surg Hx - [facility] Procedures ASSISTANCE WITH RESPIRATORY VENTILATION, 24-96 HRS, CPAP (08/13/16) DETOXIFICATION SERVICES FOR SUBSTANCE ABUSE TREATMENT (08/13/16) Family History: States: Unknown Family Hx - Social History Hx Alcohol Use: Yes Hx Substance Use: No - Immunization History Hx Tetanus Toxoid Vaccination: No Hx Influenza Vaccination: No Hx Pneumococcal Vaccination: No <Lizet Nelson - Last Filed: 09/03/18 19:17> Vital Signs: Last Vital Signs Temp 97.9 F 09/04/18 01:47 Pulse 77 09/04/18 01:47 Resp 18 09/04/18 01:47 BP 136/89 09/04/18 01:47 Pulse Ox 95 09/04/18 01:47 - [facility] Procedures ASSISTANCE WITH RESPIRATORY VENTILATION, 24-96 HRS, CPAP (08/13/16) DETOXIFICATION SERVICES FOR SUBSTANCE ABUSE TREATMENT (08/13/16) <Solomon Kumar - Last Filed: 09/04/18 03:35> Review Of Systems Review Of Systems: ROS cannot be obtained secondary to pt's inabilty to answer questions. <Lizet Nelson - Last Filed: 09/03/18 19:17> Physical Exam - Physical Exam Appears: Non-toxic, Other (patient in urine covered clothing, mumbling) Skin: Normal Color, Warm, Dry Head: Atraumatic, Normacephalic, Other (old scab to the left frontal area) Teeth: Edentulous (partly) Neck: Normal ROM, Supple Chest: Symmetrical, No Deformity Cardiovascular: Rhythm Regular, No Murmur Respiratory: No Accessory Muscle Use, No Rales, No Rhonchi, No Wheezing Gastrointestinal/Abdominal: Soft, No Tenderness Extremity: Pedal Edema (+2 bilaterally ), Capillary Refill (<2 seconds) Pulses: Left Radial: Normal, Right Radial: Normal Neurological/Psych: No Oriented x3, No Normal Speech, No Normal Cognition, Other (responds to stimuli, mumbling, not making sense, arousable) <Lizet Nelson - Last Filed: 09/03/18 19:17> ED Course And Treatment O2 Sat by Pulse Oximetry: 99 (in RA) <Lizet Nelson - Last Filed: 09/03/18 19:17> Disposition - Disposition Disposition Time: 19:17 <Lizet Nelson - Last Filed: 09/03/18 19:17> Counseled Patient/Family Regarding: Diagnosis <Solomon Kumar - Last Filed: 09/04/18 03:35> - Disposition Referrals: [facility] [Outside] Condition: STABLE Instructions: Alcohol Abuse and Alcoholism (DC) Forms: [facility] (Hungarian) - Clinical Impression Clinical Impression: Alcohol intoxication - PA / LEAD SYSTEMS DEVELOPER / Resident Statement MD/DO has reviewed & agrees with the documentation as recorded. (Malgorzata Estrella) - Scribe Statement The provider has reviewed the documentation as recorded by the Scribe (Malgorzata Estrella) All medical record entries made by the Scribe were at my direction and personally dictated by me. I have reviewed the chart and agree that the record accurately reflects my personal performance of the history, physical exam, medical decision making, and the department course for this patient. I have also personally directed, reviewed, and agree with the discharge instructions and disposition. <Lizet Nelson - Last Filed: 09/03/18 19:17> Physician Patient Turnover Patient Signed Over To: Solomon Kumar Handoff Comments: observe to sobriety, dispo accordingly <Lizet Nelson - Last Filed: 09/03/18 19:17>
[2018-09-04 01:48] VITALS: RESP 18
[2018-09-04 04:18] VITALS: BP 145/88; PULSE 62; TEMP 98.9; O2SAT 99
== END 2018-09-04 05:24 | disposition home or self-care (01) ==
LOC: C.ER 16:45
DX: F10.129 Alcohol abuse with intoxication, unspecified (principal); Y90.9 Presence of alcohol in blood, level not specified

== ENCOUNTER 2018-09-04 12:10 | Emergency (ER) | payer OTHER ==
[2018-09-04 12:12] VITALS: BMI 28.1
--- NOTE | 2018-09-04 14:08 | CT ---
Date of service: 09/04/2018 PROCEDURE: CT HEAD WITHOUT CONTRAST. HISTORY: s/p fall - r/o ICH and fx COMPARISON: Noncontrast head CT performed 08/25/18 TECHNIQUE: Axial computed tomography images were obtained through the head/brain without intravenous contrast. Radiation dose: Total exam DLP = 1410.49 mGy-cm. This CT exam was performed using one or more of the following dose reduction techniques: Automated exposure control, adjustment of the mA and/or kV according to patient size, and/or use of iterative reconstruction technique. FINDINGS: HEMORRHAGE: No intracranial hemorrhage. BRAIN: Diffuse atrophy with prominence of the ventricles and sulci noted. No mass effect or edema. Chronic appearing small right basal ganglia lacunar infarct. Scattered white matter hypodensities, which are nonspecific, but often seen with chronic microvascular ischemic disease. Please note that MRI with diffusion imaging is more sensitive in the detection of acute ischemic event. VENTRICLES: No hydrocephalus. CALVARIUM: Unremarkable. PARANASAL SINUSES: Mucosal thickening of the left maxillary sinus. The remainder of the visualized paranasal sinuses appear clear. MASTOID AIR CELLS: Unremarkable as visualized. No inflammatory changes. OTHER FINDINGS: Postsurgical changes of the right mandible. Chronic appearing bilateral nondisplaced nasal bone fracture deformities. IMPRESSION: No acute intracranial pathology identified. Postsurgical changes of the right mandible. Chronic appearing bilateral nondisplaced nasal bone fracture deformities. Mucosal thickening of the left maxillary sinus.
--- NOTE | 2018-09-04 14:13 | CT ---
Date of service: 09/04/2018 CT orbits without IV contrast Indication: s/p fall - r/o ICH and fx Comparison: Noncontrast head performed the same day, maxillofacial CT without contrast performed 12/20/17 Technique: Axial computed tomography images were obtained of the orbits without the use of intravenous contrast. Coronal and sagittal reformatted images were generated and reviewed. This CT exam was performed using 1 or more of the following dose reduction techniques: Automated exposure control, adjustment of the MAA and/or kV according to patient size, and/or use of iterative reconstruction technique. Radiation dose: Total exam DLP = 836.12 mGy-cm. Findings: Right facial soft tissue swelling. Probable bilateral nondisplaced chronic nasal bone fracture deformities. Postsurgical changes related to prior fracture fixation of remote right mandibular ramus and left mandibular body/symphysis. The remainder the visualized osseous structures appear intact. Probable bilateral exophthalmos. Otherwise, the orbits appear unremarkable. The temporomandibular joints appear located. The mastoid air cells appear clear. Mucosal thickening of the left maxillary sinus. The paranasal sinuses appear clear. The visualized brain appears unremarkable. Soft tissues appear unremarkable. Impression: Right facial soft tissue swelling. Probable bilateral nondisplaced chronic nasal bone fracture deformities. Postsurgical changes related to prior fracture fixation of remote right mandibular ramus and left mandibular body/symphysis. Mucosal thickening of the left maxillary sinus. Probable bilateral exophthalmos. Recommend correlation with ophthalmic evaluation.
[2018-09-04 15:07] VITALS: BP 110/68; PULSE 65; RESP 17; TEMP 97.4; O2SAT 97
--- NOTE | 2018-09-04 17:01 | C.PDOC ---
History Of Present Illness 62 year old male brought by ambulance to the ED s/p fall. Patient states that he was drinking alcohol all day. Patient has had multiple visits to the ED for the same. No loss of consciousness. Time Seen by Provider: 09/04/18 12:29 Chief Complaint (Nursing): Substance Abuse History Per: Patient, EMS History/Exam Limitations: intoxication Onset/Duration Of Symptoms: Hrs Current Symptoms Are (Timing): Still Present Suicide/Self Injury Attempted (Context): None Modifying Factor(s): Alcohol Past Medical History Reviewed: Historical Data, Nursing Documentation, Vital Signs Vital Signs: Last Vital Signs Temp 97.4 F L 09/04/18 15:04 Pulse 65 09/04/18 15:04 Resp 17 09/04/18 15:04 BP 110/68 09/04/18 15:04 Pulse Ox 97 09/04/18 15:04 - Medical History PMH: HTN Denies: Diabetes, Hepatitis, HIV, Seizures, Sexually Transmitted Disease Surgical History: No Surg Hx - [facility] Procedures ASSISTANCE WITH RESPIRATORY VENTILATION, 24-96 HRS, CPAP (08/13/16) DETOXIFICATION SERVICES FOR SUBSTANCE ABUSE TREATMENT (08/13/16) Family History: States: Unknown Family Hx - Social History Hx Alcohol Use: Yes Hx Substance Use: No - Immunization History Hx Tetanus Toxoid Vaccination: No Hx Influenza Vaccination: No Hx Pneumococcal Vaccination: No Review Of Systems Skin: Positive for: Other (abrasions to the nose) Physical Exam - Physical Exam Appears: Non-toxic, No Acute Distress Skin: Normal Color, Warm, Dry Head: Atraumatic, Normacephalic Nose: Other (abrasions) Oral Mucosa: Moist Neck: Normal ROM, Supple Chest: Symmetrical, No Deformity Cardiovascular: Rhythm Regular, No Murmur Respiratory: No Accessory Muscle Use, No Rales, No Rhonchi, No Wheezing Gastrointestinal/Abdominal: Soft, No Tenderness ED Course And Treatment O2 Sat by Pulse Oximetry: 97 (in RA) - CT Scan/US Head CT Other Rad Studies (CT/US): Interpreted By Me, Read By Radiologist CT/US Interpretation: IMPRESSION: No acute intracranial pathology identified. Postsurgical changes of the right mandible. Chronic appearing bilateral nondisplaced nasal bone fracture deformities. Mucosal thickening of the left maxillary sinus. Orbits/Facial CT Other Rad Studies (CT/US): Interpreted By Me, Read By Radiologist CT/US Interpretation: Impression: Right facial soft tissue swelling. Probable bilateral nondisplaced chronic nasal bone fracture deformities. Postsurgical changes related to prior fracture fixation of remote right mandibular ramus and left mandibular body/symphysis. Mucosal thickening of the left maxillary sinus. Probable bilateral exophthalmos. Recommend correlation with ophthalmic evaluation. Medical Decision Making Medical Decision Making: Impression: 62 year old male brought by ambulance to the ED s/p fall. Plan: Head CT Orbits/Facial CT Glucose PO Disposition - Disposition Referrals: Willie Bernard, [Non-Staff] - Disposition: HOME/ ROUTINE Disposition Time: 15:30 Condition: IMPROVED Additional Instructions: KAMERON FERNANDES, thank you for letting us take care of you today. The emergency medical care you received today was directed at your acute symptoms. If you were prescribed any medication, please fill it and take as directed. It may take several days for your symptoms to resolve. Return to the Emergency Department if your symptoms worsen, do not improve, or if you have any other problems. Please contact your doctor or call one of the physicians/clinics you have been referred to that are listed on the Patient Visit Information form that is included in your discharge packet. Bring any paperwork you were given at discharge with you along with any medications you are taking to your follow up visit. Our treatment cannot replace ongoing medical care by a primary care provider outside of the emergency department. Thank you for allowing the [facility] team to be part of your care today. Do not drink too much alcohol at one time. Follow up with your primary care doctor in 3-4 days for re-evaluation and further management. Instructions: Alcohol Use - When Is Drinking a Problem? Forms: [email or web address] (Nepali) - Clinical Impression Clinical Impression: Alcohol use, Facial contusion - Scribe Statement The provider has reviewed the documentation as recorded by the Scribe (Malgorzata Estrella) All medical record entries made by the Scribe were at my direction and personally dictated by me. I have reviewed the chart and agree that the record accurately reflects my personal performance of the history, physical exam, medical decision making, and the department course for this patient. I have also personally directed, reviewed, and agree with the discharge instructions and disposition.
== END 2018-09-04 17:35 | disposition home or self-care (01) ==
LOC: C.ER 12:10
DX: S00.83XA Contusion of other part of head, initial encounter (principal); W19.XXXA Unspecified fall, initial encounter; Z72.89 Other problems related to lifestyle

== ENCOUNTER 2018-10-16 21:56 | Emergency (ER) | payer OTHER ==
[2018-10-16 21:57] VITALS: BMI 28.1
[2018-10-16 22:06] VITALS: RESP 16
--- NOTE | 2018-10-16 22:11 | C.PDOC ---
History Of Present Illness 62 year old male is brought to the ED by EMS for public intoxication. Patient has multiple prior evaluations for same presentations, last visit 09/04. Patient denies SI/HI, hallucinations, other drug abuse. Time Seen by Provider: 10/16/18 22:09 Chief Complaint (Nursing): Substance Abuse History Per: Patient, EMS History/Exam Limitations: intoxication Onset/Duration Of Symptoms: Days Current Symptoms Are (Timing): Still Present Modifying Factor(s): Alcohol Associated Symptoms: Anger, Agitation. denies: Depression, Suicidal Thoughts, Suicidal Plan Recent travel outside of the [place]: No Additional History Per: Patient Past Medical History Reviewed: Historical Data, Nursing Documentation, Vital Signs Vital Signs: Last Vital Signs Temp 97.9 F 10/16/18 22:02 Pulse 72 10/16/18 22:02 Resp 16 10/16/18 22:02 BP 130/85 10/16/18 22:02 Pulse Ox 97 10/16/18 22:02 Primary Care Provider: FAMILY PROVIDER,NO - Medical History PMH: HTN Denies: Diabetes, Hepatitis, HIV, Seizures, Sexually Transmitted Disease Surgical History: No Surg Hx - [facility] Procedures ASSISTANCE WITH RESPIRATORY VENTILATION, 24-96 HRS, CPAP (08/13/16) DETOXIFICATION SERVICES FOR SUBSTANCE ABUSE TREATMENT (08/13/16) Family History: States: Unknown Family Hx - Social History Hx Alcohol Use: Yes Hx Substance Use: No - Immunization History Hx Tetanus Toxoid Vaccination: No Hx Influenza Vaccination: No Hx Pneumococcal Vaccination: No Review Of Systems Constitutional: Negative for: Fever, Chills Cardiovascular: Negative for: Chest Pain Respiratory: Negative for: Shortness of Breath Gastrointestinal: Negative for: Nausea, Vomiting, Abdominal Pain Skin: Negative for: Rash Psych: Negative for: Depression, Suicidal ideation Physical Exam - Physical Exam Appears: Non-toxic, Agitated, Other (argumentative) Skin: Normal Color, Warm, Dry Head: Atraumatic, Normacephalic Eye(s): bilateral: Normal Inspection Neck: Normal ROM, Supple Chest: Symmetrical Cardiovascular: Rhythm Regular Respiratory: Normal Breath Sounds, No Rales, No Rhonchi, No Wheezing Extremity: Normal ROM, No Tenderness, No Swelling Neurological/Psych: Oriented x3, Normal Speech, Normal Cognition Gait: Steady ED Course And Treatment O2 Sat by Pulse Oximetry: 97 (ON RA) Pulse Ox Interpretation: Normal Medical Decision Making Medical Decision Making: typical alcohol abuse no new issues easily arousable ok for d/c to street Disposition Doctor Will See Patient In The: Office Counseled Patient/Family Regarding: Studies Performed, Diagnosis - Disposition Referrals: [facility] [Outside] [facility] [Outside] [facility] [Outside] [facility] [Outside] Disposition: HOME/ ROUTINE Disposition Time: 22:11 Condition: GOOD Instructions: Alcohol Use - When Is Drinking a Problem? Forms: [facility] (Maltese) - Clinical Impression Clinical Impression: Alcohol abuse - Scribe Statement The provider has reviewed the documentation as recorded by the Scribe Lopez Basurto All medical record entries made by the Scribe were at my direction and personally dictated by me. I have reviewed the chart and agree that the record accurately reflects my personal performance of the history, physical exam, medical decision making, and the department course for this patient. I have also personally directed, reviewed, and agree with the discharge instructions and di sposition.
[2018-10-16 23:47] VITALS: BP 128/86; PULSE 78; TEMP 98; O2SAT 97
== END 2018-10-16 23:47 | disposition home or self-care (01) ==
LOC: C.ER 21:56
DX: F10.10 Alcohol abuse, uncomplicated (principal); I10 Essential (primary) hypertension; Z87.891 Personal history of nicotine dependence

== ENCOUNTER 2018-10-17 00:55 | Emergency (ER) | payer OTHER | END 2018-10-17 02:47 | disposition home or self-care (01) | LOC: C.ER 00:55 ==

== ENCOUNTER 2018-10-17 17:04 | Emergency (ER) | payer OTHER ==
[2018-10-17 17:04] VITALS: BMI 28.1
[2018-10-17 18:57] VITALS: O2SAT 98
--- NOTE | 2018-10-17 19:03 | CT ---
Date of service: 10/17/2018 PROCEDURE: CT HEAD WITHOUT CONTRAST. HISTORY: fall COMPARISON: Comparison is made with 09/04/2018 TECHNIQUE: Axial computed tomography images were obtained through the head/brain without intravenous contrast. Radiation dose: Total exam DLP = 1006.86 mGy-cm. This CT exam was performed using one or more of the following dose reduction techniques: Automated exposure control, adjustment of the mA and/or kV according to patient size, and/or use of iterative reconstruction technique. FINDINGS: HEMORRHAGE: No intracranial hemorrhage. BRAIN: No mass effect or edema. No atrophy or chronic microvascular ischemic changes. VENTRICLES: Unremarkable. No hydrocephalus. CALVARIUM: Unremarkable. PARANASAL SINUSES: Mild mucosal thickening of the left maxillary sinus is noted. There is old fracture and deformity in the left lamina papyracea. MASTOID AIR CELLS: Unremarkable as visualized. No inflammatory changes. OTHER FINDINGS: None. IMPRESSION: No evidence of acute intracranial hemorrhage intracranial collection mass effect or midline shift.
--- NOTE | 2018-10-17 19:23 | C.PDOC ---
History Of Present Illness 62 y/o male, alcoholic, presents to ED stating he was drinking and fell, sustaining a 6cm laceration to the temporal occipital area. Patient remembers falling. Denies LOC, nausea, vomiting, or visual changes. Time Seen by Provider: 10/17/18 19:22 Chief Complaint (Nursing): Substance Abuse History Per: Patient History/Exam Limitations: no limitations Onset/Duration Of Symptoms: Hrs Current Symptoms Are (Timing): Still Present Severity: None Pain Scale Rating Of: 0 Recent travel outside of the [place]: No Additional History Per: EMS Past Medical History Reviewed: Historical Data, Nursing Documentation, Vital Signs Vital Signs: Last Vital Signs Temp 97.9 F 10/17/18 18:51 Pulse 76 10/17/18 18:51 Resp 17 10/17/18 18:51 BP 132/84 10/17/18 18:51 Pulse Ox 98 10/17/18 18:51 Primary Care Provider: FAMILY PROVIDER,NO - Medical History PMH: HTN Denies: Diabetes, Hepatitis, HIV, Seizures, Sexually Transmitted Disease - [facility] Procedures ASSISTANCE WITH RESPIRATORY VENTILATION, 24-96 HRS, CPAP (08/13/16) DETOXIFICATION SERVICES FOR SUBSTANCE ABUSE TREATMENT (08/13/16) Family History: States: No Known Family Hx - Social History Hx Alcohol Use: Yes Hx Substance Use: No - Immunization History Hx Tetanus Toxoid Vaccination: No Hx Influenza Vaccination: No Hx Pneumococcal Vaccination: No Review Of Systems Constitutional: Negative for: Fever, Chills Eyes: Negative for: Vision Change Cardiovascular: Negative for: Chest Pain, Palpitations Respiratory: Negative for: Cough, Shortness of Breath Gastrointestinal: Negative for: Nausea, Vomiting Musculoskeletal: Positive for: Other (6cm laceration to temporal occipital area) Neurological: Negative for: Weakness, Numbness, Other (LOC) Physical Exam - Physical Exam Appears: Non-toxic, No Acute Distress Skin: Warm, Dry Head: Normacephalic, Laceration (6cm laceration to temporal occiptal area) Eye(s): bilateral: Normal Inspection Ear(s): Bilateral: Normal (some wax) Oral Mucosa: Moist Neck: Normal ROM, Trachea Midline, No Midline Cervical Tenderness, No Paracervical Tenderness, No Step Off Deformity, Supple Chest: Symmetrical, No Tenderness Cardiovascular: Rhythm Regular Respiratory: No Rales, No Rhonchi, No Wheezing Gastrointestinal/Abdominal: Soft, No Tenderness, No Distention Extremity: Bilateral: Normal Color And Temperature Neurological/Psych: Oriented x3 Gait: Steady ED Course And Treatment O2 Sat by Pulse Oximetry: 98 (RA) Pulse Ox Interpretation: Normal - CT Scan/US Head CT Other Rad Studies (CT/US): Read By Radiologist, Radiology Report Reviewed CT/US Interpretation: FINDINGS: HEMORRHAGE: No intracranial hemorrhage. BRAIN: No mass effect or edema. No atrophy or chronic microvascular ischemic changes. VENTRICLES: Unremarkable. No hydrocephalus. CALVARIUM: Unremar kable. PARANASAL SINUSES: Mild mucosal thickening of the left maxillary sinus is noted. There is old fracture and deformity in the left lamina papyracea. MASTOID AIR CELLS: Unremarkable as visualized. No inflammatory changes. OTHER FINDINGS: None. IMPRESSION: No evidence of acute intracranial hemorrhage intracranial collection mass effect or midline shift. Laceration - Laceration Repair scalp Wound Length (In cm): 5 Description Of Wound: Linear Wound Cleansed With: Betadine Anesthesia: Lidocaine 1%, With Epi Wound Examination: Irrigated With Saline Wound Closure: Manju (#7) Suture Technique And Material Used: Interrupted Wound Complexity: Simple Medical Decision Making Medical Decision Making: Plan: --Head CT Disposition Counseled Patient/Family Regarding: Studies Performed, Diagnosis, Need For Followup - Disposition Referrals: [facility] [Outside] Disposition: HOME/ ROUTINE Disposition Time: 19:23 Condition: FAIR Additional Instructions: Please return in 7 - 10 days to have manju removed Instructions: Alcohol Abuse and Alcoholism (DC), Laceration Repair With Manju (DC), Minor Head Injury (DC) Forms: [employer] (Thai) - Clinical Impression Clinical Impression: Alcohol abuse, Laceration of scalp - Scribe Statement The provider has reviewed the documentation as recorded by the Renato Rogers Provider Attestation: All medical record entries made by the Renato were at my direction and personally dictated by me. I have reviewed the chart and agree that the record accurately reflects my personal performance of the history, physical exam, medical decision making, and the department course for this patient. I have also personally directed, reviewed, and agree with the discharge instructions and disposition.
[2018-10-17] MEDS ORDERED: Lidocaine 1%/Epinephrine 1:100000 30 ml vial IJ ONE (20:20)
[2018-10-17 22:22] VITALS: BP 124/75; PULSE 75; RESP 16; TEMP 98
== END 2018-10-17 22:23 | disposition home or self-care (01) ==
LOC: C.ER 17:04
DX: S01.01XA Laceration without foreign body of scalp, initial encounter (principal); W19.XXXA Unspecified fall, initial encounter; F10.10 Alcohol abuse, uncomplicated; I10 Essential (primary) hypertension

== ENCOUNTER 2018-10-24 18:47 | Emergency (ER) | payer OTHER ==
[2018-10-24 18:47] VITALS: BMI 28.1
[2018-10-24 19:01] VITALS: BP 132/80; PULSE 88; RESP 20; TEMP 98.4; O2SAT 98
--- NOTE | 2018-10-24 20:02 | C.PDOC ---
History Of Present Illness 62 y/o male presents to ED for alcohol intoxication. Patient denies SI/HI. Denies any physical complaints at this time. Time Seen by Provider: 10/24/18 19:55 Chief Complaint (Nursing): Substance Abuse History Per: Patient History/Exam Limitations: no limitations Onset/Duration Of Symptoms: Hrs Current Symptoms Are (Timing): Still Present Past Medical History Reviewed: Historical Data, Nursing Documentation, Vital Signs Vital Signs: Last Vital Signs Temp 98.4 F 10/24/18 18:57 Pulse 88 10/24/18 18:57 Resp 20 10/24/18 18:57 BP 132/80 10/24/18 18:57 Pulse Ox 98 10/24/18 18:57 Primary Care Provider: FAMILY PROVIDER,NO - Medical History PMH: HTN Denies: Diabetes, Hepatitis, HIV, Seizures, Sexually Transmitted Disease - [facility] Procedures ASSISTANCE WITH RESPIRATORY VENTILATION, 24-96 HRS, CPAP (08/13/16) DETOXIFICATION SERVICES FOR SUBSTANCE ABUSE TREATMENT (08/13/16) Family History: States: No Known Family Hx - Social History Hx Alcohol Use: Yes Hx Substance Use: No - Immunization History Hx Tetanus Toxoid Vaccination: No Hx Influenza Vaccination: No Hx Pneumococcal Vaccination: No Review Of Systems Except As Marked, All Systems Reviewed And Found Negative. Constitutional: Negative for: Fever, Chills Gastrointestinal: Negative for: Vomiting Psych: Positive for: Other (alcohol intoxication). Negative for: Psychosis, Suicidal ideation Physical Exam - Physical Exam Appears: Non-toxic, No Acute Distress Skin: Warm, Dry Head: Normacephalic Eye(s): bilateral: Normal Inspection Oral Mucosa: Moist Neck: Supple Cardiovascular: Rhythm Regular, No Murmur Respiratory: Normal Breath Sounds, No Rales, No Rhonchi, No Wheezing Gastrointestinal/Abdominal: Soft Extremity: Bilateral: Atraumatic, Normal Color And Temperature Neurological/Psych: Oriented x3, Normal Speech Gait: Steady ED Course And Treatment O2 Sat by Pulse Oximetry: 98 (RA) Pulse Ox Interpretation: Normal Medical Decision Making Medical Decision Making: awake alert upon ed arrival steady gait stable for dc. Disposition - Disposition Disposition: HOME/ ROUTINE Disposition Time: 20:00 Condition: STABLE Instructions: Alcohol Abuse and Alcoholism (DC) Forms: [employer] (Spanish) - Clinical Impression Clinical Impression: Alcohol abuse - Scribe Statement The provider has reviewed the documentation as recorded by the Scribe Yaneth Jeromeus Provider Attestation: All medical record entries made by the Renato were at my direction and personally dictated by me. I have reviewed the chart and agree that the record accurately reflects my personal performance of the history, physical exam, medical decision making, and the department course for this patient. I have also personally directed, reviewed, and agree with the discharge instructions and disposition.
== END 2018-10-24 20:03 | disposition home or self-care (01) ==
LOC: C.ER 18:47
DX: F10.10 Alcohol abuse, uncomplicated (principal); Y90.9 Presence of alcohol in blood, level not specified